=== PATIENT | female | born 1990 | race Caucasian/White ===

== ENCOUNTER 2016-09-27 12:36 | Emergency (ER) | payer OTHER ==
[2016-09-27 14:34] VITALS: BP 116/76
--- NOTE | 2016-09-27 15:37 | UC ---
Throat Pain/Nasal Joel HPI - HPI Summary HPI Summary: Worsening sinus pain and congestion, no fevers, sore throat from post nasal drip - History of Current Complaint Chief Complaint: UCRespiratory Stated Complaint: SINUS COMPLAINT Time Seen by Provider: 09/27/16 15:33 Hx Obtained From: Patient Hx Last Menstrual Period: 09/26/16 ?: No Onset/Duration: Gradual Onset, Lasting Weeks - 2, Still Present Severity: Moderate Pain Intensity: 6 Pain Scale Used: 0-10 Numeric Cough: Nonproductive Associated Signs & Symptoms: Positive: Sinus Discomfort, Nasal Discharge - Allergies/Home Medications Allergies/Adverse Reactions: Allergies Allergy/AdvReac Type Severity Reaction Status Date / Time Hydrocodone [From Vicodin] Allergy Severe Difficulty Verified 09/27/16 14:34 Breathing PMH/Surg Hx/FS Hx/Imm Hx Previously Healthy: Yes Endocrine History Of: Denies: Diabetes Cardiovascular History Of: Denies: Hypertension, Pacemaker/ICD GI/ History Of: Denies: Renal Disease - Surgical History Surgical History: Yes Surgery Procedure, Year, and Place: Appendectomy, ~2010, [facility] - Family History Known Family History: Positive: None - no reports of past medical history in family Negative: Cardiac Disease, Hypertension, Diabetes Family History: family hx of thyroid disorder - Social History Occupation: Employed Full-time Lives: With Family Alcohol Use: Occasionally Substance Use Type: None Smoking Status (MU): Light Every Day Tobacco Smoker Type: Cigarettes Amount Used/How Often: 1/4 PPD Length of Time of Smoking/Using Tobacco: On and Off for 11 Years Have You Smoked in the Last Year: Yes - Immunization History Most Recent Influenza Vaccination: Not the Season Review of Systems Constitutional: Negative Skin: Negative Eyes: Negative ENT: Sore Throat, Nasal Discharge Respiratory: Negative Cardiovascular: Negative Gastrointestinal: Negative Genitourinary: Negative Motor: Negative Neurovascular: Negative Musculoskeletal: Negative Neurological: Negative Psychological: Negative All Other Systems Reviewed And Are Negative: Yes Physical Exam Triage Information Reviewed: Yes Appearance: Well-Appearing, No Pain Distress, Well-Nourished Vital Signs: Initial Vital Signs Temp 96.6 F 09/27/16 14:31 Pulse 83 09/27/16 14:31 Resp 16 09/27/16 14:31 BP 116/76 09/27/16 14:31 Pulse Ox 100 09/27/16 14:31 Vital Signs Reviewed: Yes Eye Exam: Normal Eyes: Positive: Conjunctiva Clear ENT Exam: Normal ENT: Positive: Normal ENT inspection, Hearing grossly normal, Pharynx normal, TMs normal. Negative: Nasal congestion, Nasal drainage, Tonsillar swelling, Tonsillar exudate, Trismus, Muffled/hoarse voice Dental Exam: Normal Neck exam: Normal Neck: Positive: Supple, Nontender, No Lymphadenopathy Respiratory Exam: Normal Respiratory: Positive: Chest non-tender, Lungs clear, Normal breath sounds, No respiratory distress, No accessory muscle use Cardiovascular Exam: Normal Cardiovascular: Positive: RRR, No Murmur, Pulses Normal, Brisk Capillary Refill Musculoskeletal Exam: Normal Musculoskeletal: Positive: Strength Intact, ROM Intact, No Edema Neurological Exam: Normal Neurological: Positive: Alert, Muscle Tone Normal Psychological Exam: Normal Skin Exam: Normal Throat Pain/Nasal Course/Dx - Course Assessment/Plan: Zithromax, flonase, cool mist humidification, increase fluids follow with pcp re-check prn - Differential Dx/Diagnosis Differential Diagnosis/HQI/PQRI: Influenza, Pharyngitis, Sinusitis, URI Provider Diagnoses: Rhinnosinusitis Discharge - Discharge Plan Condition: Stable Disposition: HOME Prescriptions: Azithromycin TAB* [Zithromax TAB (Z-MARSHALL) 250 mg #6 tabs] 2 tab PO .TODAY, THEN 1 DAILY #1 marshall Fluconazole [Diflucan 150 MG (NF)] 150 mg PO DAILY #1 tab Fluticasone NASAL SPRAY 50MCG* [Flonase NASAL SPRAY 50MCG*] 2 spray BOTH NARES DAILY #1 btl Patient Education Materials: Sinusitis (ED), How to Use Nasal Arab (ED) Referrals: Eleonora Barnett MD [Primary Care Provider] - If Needed
== END 2016-09-27 15:45 | disposition home or self-care (01) ==
LOC: UCCORT 12:36
DX: J32.9 Chronic sinusitis, unspecified (principal); F17.210 Nicotine dependence, cigarettes, uncomplicated; Z88.5 Allergy status to narcotic agent
CPT/HCPCS: 99212; G0463

== ENCOUNTER 2016-10-17 10:01 | Emergency (ER) | payer OTHER ==
[2016-10-17 11:05] VITALS: BP 136/86
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
[2016-10-17] MEDS ORDERED: Ketorolac INJ* 60 MG/2 ML VIAL IM ONE (11:27)
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
== END 2016-10-17 12:40 | disposition home or self-care (01) ==
LOC: UCCORT 10:01
DX: M54.2 Cervicalgia (principal); G54.0 Brachial plexus disorders; S14.3XXA Injury of brachial plexus, initial encounter; S70.02XA Contusion of left hip, initial encounter; V48.5XXA Car driver injured in noncollision transport accident in traffic accident, initial encounter; Y93.89 Activity, other specified; Y92.411 Interstate highway as the place of occurrence of the external cause; Z88.5 Allergy status to narcotic agent; F17.210 Nicotine dependence, cigarettes, uncomplicated
CPT/HCPCS: 72020; 72050; 96372; 99213; G0463; J1885

== ENCOUNTER 2016-11-05 13:52 | Emergency (ER) | payer OTHER ==
[2016-11-05 14:12] VITALS: BP 141/78
--- NOTE | 2016-11-05 14:19 | UC ---
Complaint Female HPI - HPI Summary HPI Summary: Dysuria, frequency, bladder pressure starting 2 days ago. Sx worse at night; has been drinking lots of fluids, which helps temporarily, then sx return. Denies fever, vomiting, or back pain. No hx of UTI. - History Of Current Complaint Stated Complaint: URINARY COMPLAINT Time Seen by Provider: 11/05/16 13:55 Hx Obtained From: Patient Hx Last Menstrual Period: 2 weeks ago ?: No Onset/Duration: Gradual Onset, Lasting Days Timing: Constant Severity Initially: Mild Severity Currently: Mild Character: Burning Aggravating Factor(s): Urination Alleviating Factor(s): Nothing Associated Signs And Symptoms: Positive: Negative. Negative: Fever, Back Pain, Vaginal Bleeding/Discharge, Vaginal Discharge, Vomiting(# Of Episodes =) - Allergies/Home Medications Allergies/Adverse Reactions: Allergies Allergy/AdvReac Type Severity Reaction Status Date / Time Hydrocodone [From Vicodin] Allergy Severe Difficulty Verified 11/05/16 14:12 Breathing PMH/Surg Hx/FS Hx/Imm Hx Endocrine History Of: Denies: Diabetes Cardiovascular History Of: Denies: Hypertension, Pacemaker/ICD GI/ History Of: Denies: Renal Disease - Surgical History Surgical History: Yes Surgery Procedure, Year, and Place: Appendectomy, ~2010, [facility] - Family History Known Family History: Positive: None - no reports of past medical history in family Negative: Cardiac Disease, Hypertension, Diabetes Family History: family hx of thyroid disorder - Social History Occupation: Employed Full-time Lives: With Family Alcohol Use: Occasionally Substance Use Type: None Smoking Status (MU): Light Every Day Tobacco Smoker Type: Cigarettes Amount Used/How Often: 1/4 PPD Length of Time of Smoking/Using Tobacco: On and Off for 11 Years Have You Smoked in the Last Year: Yes - Immunization History Most Recent Influenza Vaccination: Not the 2016/2017 Season Review of Systems Constitutional: Negative Skin: Negative Eyes: Negative ENT: Negative Respiratory: Negative Cardiovascular: Negative Gastrointestinal: Negative Genitourinary: Dysuria, Frequency, Urgency Motor: Negative Neurovascular: Negative Musculoskeletal: Negative Neurological: Negative Psychological: Negative All Other Systems Reviewed And Are Negative: Yes Physical Exam Triage Information Reviewed: Yes Appearance: Well-Appearing, No Pain Distress, Well-Nourished Vital Signs: Initial Vital Signs Temp 98.3 F 11/05/16 14:04 Pulse 80 11/05/16 14:04 Resp 18 11/05/16 14:04 BP 141/78 11/05/16 14:04 Vital Signs Reviewed: Yes Eye Exam: Normal Eyes: Positive: Conjunctiva Clear ENT Exam: Normal ENT: Positive: Normal ENT inspection, Hearing grossly normal, Pharynx normal, TMs normal Dental Exam: Normal Neck exam: Normal Neck: Positive: Supple, Nontender, No Lymphadenopathy Respiratory Exam: Normal Respiratory: Positive: Chest non-tender, Lungs clear, Normal breath sounds, No respiratory distress, No accessory muscle use Cardiovascular Exam: Normal Cardiovascular: Positive: RRR, No Murmur Abdomen Description: Positive: Nontender, No Organomegaly, Soft. Negative: CVA Tenderness (R), CVA Tenderness (L) Musculoskeletal Exam: Normal Neurological Exam: Normal Neurological: Positive: Alert Psychological Exam: Normal Skin Exam: Normal Complaint Female Dx - Differential Dx/Diagnosis Provider Diagnoses: UTI. elevated blood pressure due to discomfort Discharge - Discharge Plan Condition: Stable Disposition: HOME Prescriptions: Nitrofurantoin Monohyd Macro [Macrobid] 100 mg PO BID #10 cap Patient Education Materials: Urinary Tract Infection in Women (ED) Referrals: Eleonora Barnett MD [Primary Care Provider] -
== END 2016-11-05 14:31 | disposition home or self-care (01) ==
LOC: UCCORT 13:52
DX: N39.0 Urinary tract infection, site not specified (principal); R03.0 Elevated blood-pressure reading, without diagnosis of hypertension; Z88.5 Allergy status to narcotic agent; F17.210 Nicotine dependence, cigarettes, uncomplicated
CPT/HCPCS: 81003; 87077; 87086; 87186; 99212; G0463

== ENCOUNTER 2017-05-19 19:27 | Emergency (ER) | payer OTHER ==
--- NOTE | 2017-05-19 19:46 | UC ---
Complaint Female HPI - HPI Summary HPI Summary: 26 YEAR OLD [place] PRESENTS WITH COMPLAINS OF URINARY FREQUENCY, URGENCY AND BURNING. - History Of Current Complaint Stated Complaint: URINARY SYMPTOMS Time Seen by Provider: 05/19/17 19:46 Hx Obtained From: Patient Hx Last Menstrual Period: 2 weeks ago Onset/Duration: Sudden Onset Timing: Constant Severity Initially: Moderate Severity Currently: Moderate Pain Scale Used: 0-10 Numeric - 6 - Allergies/Home Medications Allergies/Adverse Reactions: Allergies Allergy/AdvReac Type Severity Reaction Status Date / Time Hydrocodone [From Vicodin] Allergy Severe Difficulty Verified 05/19/17 19:54 Breathing Home Medications: Home Medications Acetaminophen [Acetaminophen Extra Stren] 1,000 mg PO Q6H PRN 05/19/17 [History Confirmed 05/19/17] PMH/Surg Hx/FS Hx/Imm Hx Previously Healthy: Yes - Surgical History Surgical History: Yes Surgery Procedure, Year, and Place: Appendectomy, ~2010, [facility] - Family History Known Family History: Positive: None - no reports of past medical history in family Negative: Cardiac Disease, Hypertension, Diabetes Family History: family hx of thyroid disorder - Social History Alcohol Use: Occasionally Substance Use Type: None Smoking Status (MU): Light Every Day Tobacco Smoker Type: Cigarettes Amount Used/How Often: 1/4 PPD Length of Time of Smoking/Using Tobacco: On and Off for 11 Years Have You Smoked in the Last Year: Yes - Immunization History Most Recent Influenza Vaccination: Not the 2016/2016 Season Review of Systems Constitutional: Negative Skin: Negative Eyes: Negative ENT: Negative Respiratory: Negative Cardiovascular: Negative Gastrointestinal: Negative Genitourinary: Dysuria, Frequency, Urgency Motor: Negative Neurovascular: Negative Musculoskeletal: Negative Neurological: Negative Psychological: Negative All Other Systems Reviewed And Are Negative: Yes Physical Exam Triage Information Reviewed: Yes Vital Signs Reviewed: Yes Eye Exam: Normal ENT Exam: Normal Dental Exam: Normal Neck exam: Normal Neck: Positive: 1 Respiratory Exam: Normal Cardiovascular Exam: Normal Abdominal Exam: Normal Musculoskeletal Exam: Normal Neurological Exam: Normal Psychological Exam: Normal Skin Exam: Normal Complaint Female Dx - Differential Dx/Diagnosis Provider Diagnoses: UTI. URINARY FREQUNECY. URINARY URGENCY Discharge - Discharge Plan Condition: Stable Disposition: HOME Prescriptions: Nitrofurantoin Monohyd Macro [Macrobid] 100 mg PO BID #14 cap Patient Education Materials: Urinary Tract Infection in Women (ED) Referrals: Eleonora Barnett MD [Primary Care Provider] -
[2017-05-19 19:54] VITALS: BP 127/78
--- NOTE | 2017-05-23 07:27 | ED ---
Progress - Progress Note Progress Note: NO CHANGE Course/Dx - Diagnoses Provider Diagnoses: UTI (urinary tract infection)
== END 2017-05-19 20:05 | disposition home or self-care (01) ==
LOC: UCCORT 19:27
DX: N39.0 Urinary tract infection, site not specified (principal); Z32.02 Encounter for pregnancy test, result negative; F17.210 Nicotine dependence, cigarettes, uncomplicated; Z88.6 Allergy status to analgesic agent
CPT/HCPCS: 81003; 84702; 87077; 87086; 87186; 99212; G0463

== ENCOUNTER 2017-05-25 09:58 | Emergency (ER) | payer OTHER ==
[2017-05-25 10:51] VITALS: BP 124/71
--- NOTE | 2017-05-25 11:09 | UC ---
Skin Complaint HPI - HPI Summary HPI Summary: 1. sinus pain and drainage for 10-14 days worsening head ache and frontal pain 2. bee sting yesterday left forearm today erythema has spread almost all the way around her arm down to her forearm, area is painful not itchy and warm to the touch - History of Current Complaint Chief Complaint: UCGeneralIllness Time Seen by Provider: 05/25/17 10:58 Stated Complaint: BEE STING Hx Obtained From: Patient Hx Last Menstrual Period: 2 wks ago ?: No Onset/Duration: Sudden Onset - beesting, Gradual Onset - of sinus pain Timing: Constant Onset Severity: Mild Current Severity: Moderate Pain Intensity: 8 Pain Scale Used: 0-10 Numeric - 8 for both Location: Discrete - as desrcibed Character: Pain, Redness Aggravating Factor(s): Nothing Alleviating Factor(s): Nothing Associated Signs & Symptoms: Positive: Negative Related History: Insect Bite/Sting - Left arm - Allergy/Home Medications Allergies/Adverse Reactions: Allergies Allergy/AdvReac Type Severity Reaction Status Date / Time Hydrocodone [From Vicodin] Allergy Severe Difficulty Verified 05/25/17 10:46 Breathing Home Medications: Home Medications diPHENhydraMINE PO* [Benadryl PO 50 MG CAP*] 50 mg PO TID PRN 05/25/17 [History Confirmed 05/25/17] Review of Systems Constitutional: Negative, Chills - prior to beesting r/t sinus headache, Fatigue Skin: Other - erythema left arm Eyes: Negative ENT: Nasal Discharge, Sinus Congestion, Sinus Pain/Tenderness Respiratory: Negative Cardiovascular: Negative Gastrointestinal: Negative Genitourinary: Negative Motor: Negative Neurovascular: Negative Musculoskeletal: Negative Neurological: Negative Psychological: Negative Is Patient Immunocompromised?: No All Other Systems Reviewed And Are Negative: Yes PMH/Surg Hx/FS Hx/Imm Hx Previously Healthy: Yes - Surgical History Surgical History: Yes Surgery Procedure, Year, and Place: Appendectomy, ~2010, [facility] - Family History Known Family History: Positive: None - no reports of past medical history in family Negative: Cardiac Disease, Hypertension, Diabetes Family History: family hx of thyroid disorder - Social History Occupation: Employed Part-time Lives: With Family Alcohol Use: Rare Substance Use Type: None Smoking Status (MU): Light Every Day Tobacco Smoker Type: Cigarettes Amount Used/How Often: 1/4 PPD Length of Time of Smoking/Using Tobacco: On and Off for 11 Years Have You Smoked in the Last Year: Yes Cessation Counseling: Patient Advised to Stop - Immunization History Most Recent Influenza Vaccination: Not the Season Physical Exam Triage Information Reviewed: Yes Appearance: Well-Appearing, No Pain Distress, Well-Nourished Vital Signs: Initial Vital Signs Temp 98.1 F 05/25/17 10:48 Pulse 93 05/25/17 10:48 Resp 16 05/25/17 10:48 BP 124/71 05/25/17 10:48 Pulse Ox 100 05/25/17 10:48 Vital Signs Reviewed: Yes Eye Exam: Normal Eyes: Positive: Conjunctiva Clear ENT Exam: Normal ENT: Positive: Normal ENT inspection, Hearing grossly normal, Pharynx normal. Negative: Nasal congestion, Nasal drainage Dental Exam: Normal Neck exam: Normal Neck: Positive: Supple, Nontender, No Lymphadenopathy Respiratory Exam: Normal Respiratory: Positive: Chest non-tender, Lungs clear, Normal breath sounds, No respiratory distress, No accessory muscle use Cardiovascular Exam: Normal Cardiovascular: Positive: RRR, Pulses Normal, Brisk Capillary Refill Musculoskeletal Exam: Normal Musculoskeletal: Positive: Strength Intact, ROM Intact, No Edema Neurological Exam: Normal Neurological: Positive: Alert, Muscle Tone Normal Psychological Exam: Normal Skin: Positive: Other - erythema left arm as described Course/Dx - Course Course Of Treatment: keflex, benadryl, flonase, ibuprofen follow with pcp prn - Diagnoses Provider Diagnoses: Acute rhinosinusitis, bee sting left arm, resolved UTI Discharge - Discharge Plan Condition: Stable Disposition: HOME Prescriptions: Cephalexin CAP* [Keflex 500 CAP*] 500 mg PO TID #21 cap Fluconazole 150 MG (NF) [Diflucan 150 mg (NF)] 150 mg PO ONCE #2 tab Fluticasone NASAL SPRAY 50MCG* [Flonase NASAL SPRAY 50MCG*] 2 spray BOTH NARES DAILY #1 btl Patient Education Materials: Insect Bite or Sting (ED), Rhinosinusitis (ED) Referrals: Eleonora Barnett MD [Primary Care Provider] - If Needed
== END 2017-05-25 11:16 | disposition home or self-care (01) ==
LOC: UCCORT 09:58
DX: J32.9 Chronic sinusitis, unspecified (principal); T63.441A Toxic effect of venom of bees, accidental (unintentional), initial encounter; X58.XXXA Exposure to other specified factors, initial encounter; Z88.6 Allergy status to analgesic agent
CPT/HCPCS: 99212; G0463

== ENCOUNTER 2017-10-10 18:03 | Emergency (ER) | payer BC, OTHER ==
[2017-10-10 18:42] VITALS: BP 126/72
--- NOTE | 2017-10-10 19:12 | UC ---
Knee Pain HPI - HPI Summary HPI Summary: 26 yo female with left knee pain x days no known trauma knee wayne now has pain from left hip to foot - History of Current Complaint Chief Complaint: UCLowerExtremity Stated Complaint: LEFT KNEE COMPLAINT Time Seen by Provider: 10/10/17 18:47 Hx Obtained From: Patient Hx Last Menstrual Period: 09/23/17 Onset/Duration: Gradual Onset, Lasting Days Severity Initially: Moderate Severity Currently: Moderate Pain Intensity: 4 Pain Scale Used: 0-10 Numeric Character: Aching, Throbbing Aggravating Factor(s): Movement, Weight Bearing Able to Bear Weight: Yes - Allergies/Home Medications Allergies/Adverse Reactions: Allergies Allergy/AdvReac Type Severity Reaction Status Date / Time MS Hydrocodone [From Vicodin] Allergy Severe Difficulty Verified 10/10/17 18:42 Breathing PMH/Surg Hx/FS Hx/Imm Hx Previously Healthy: Yes - Surgical History Surgical History: Yes Surgery Procedure, Year, and Place: Appendectomy, ~2010, [facility] - Family History Known Family History: Positive: None - no reports of past medical history in family Negative: Cardiac Disease, Hypertension, Diabetes Family History: family hx of thyroid disorder - Social History Alcohol Use: Rare Substance Use Type: None Smoking Status (MU): Light Every Day Tobacco Smoker Type: Cigarettes Amount Used/How Often: 1/4 PPD Length of Time of Smoking/Using Tobacco: On and Off for 11 Years Have You Smoked in the Last Year: Yes - Immunization History Most Recent Influenza Vaccination: Not the 2015/2016 Season Review of Systems Constitutional: Negative Skin: Negative Eyes: Negative ENT: Negative Respiratory: Negative Cardiovascular: Negative Gastrointestinal: Negative Genitourinary: Negative Motor: Negative Neurovascular: Negative Musculoskeletal: Arthralgia Neurological: Negative Psychological: Negative Is Patient Immunocompromised?: No All Other Systems Reviewed And Are Negative: Yes Physical Exam Triage Information Reviewed: Yes Appearance: Well-Appearing, No Pain Distress, Well-Nourished Vital Signs: Initial Vital Signs Temp 98.6 F 10/10/17 18:36 Pulse 78 10/10/17 18:36 Resp 18 10/10/17 18:36 BP 126/72 10/10/17 18:36 Pulse Ox 100 10/10/17 18:36 Vital Signs Reviewed: Yes Eyes: Positive: Conjunctiva Clear ENT: Positive: Hearing grossly normal. Negative: Nasal congestion, Nasal drainage, Trismus, Muffled voice, Hoarse voice Dental Exam: Normal Neck: Positive: Supple, Nontender, No Lymphadenopathy Respiratory: Positive: No respiratory distress, No accessory muscle use Cardiovascular: Positive: RRR Musculoskeletal: Positive: ROM Intact, No Edema, Other: - antalgic gait Neurological: Positive: Alert Psychological Exam: Normal Skin Exam: Normal Diagnostics - Radiology No standard instances Xray Interpretation: No Acute Changes Radiology Interpretation Completed By: Radiologist Knee Pain Course/Dx - Differential Dx/Diagnosis Provider Diagnoses: left knee pain of uncertain cause. ? overuse injury vs internal derrangement vs other Discharge - Discharge Plan Condition: Stable Disposition: HOME Patient Education Materials: Knee Pain (ED) Referrals: Alessio Orona MD [Medical Doctor] - As Soon As Possible Additional Instructions: ice rest elevate advil or aleve knee immobilizer when wt bearing
--- NOTE | 2017-10-10 19:45 | RAD ---
INDICATION: Knee pain COMPARISON: None TECHNIQUE: AP, lateral, tunnel, and sunrise views were obtained. FINDINGS: The bony structures, joint spaces, and soft tissues are normal for age. IMPRESSION: NEGATIVE EXAMINATION.
== END 2017-10-10 20:15 | disposition home or self-care (01) ==
LOC: UCCORT 18:03
DX: M25.562 Pain in left knee (principal); F17.210 Nicotine dependence, cigarettes, uncomplicated
CPT/HCPCS: 99212; G0463

== ENCOUNTER 2018-01-28 09:07 | Day surgery (SDC) | payer BC ==
[~2018-01-28 09:07] MED LIST: Buffered Lidocaine 0.9% SYRIN* 5 ML/SYR SYRINGE INTRADERM ONE; Dexamethasone IV* 4 MG/ML 1 ML (4 MG) ONE; DiMENhydriNATE IV* 50 MG/ML VIAL ONE; Famotidine IV* 10 MG/ML 2 ML (20 mg) IV ONE; Ketorolac INJ* 30 MG/ML 1 ML VIAL ONE; Lidocaine 2% PF * 5 ML VIAL ONE; Midazolam* 1 MG/ML 5 ML VIAL (5 MG) ONE; Propofol* 10 MG/ML 20 ML BTL IV PUSH ONE; fentaNYL* 50 MCG/ML 2 ML VIAL (100 MCG VIAL) ONE
[2018-01-28] MEDS ORDERED: Famotidine IV* 10 MG/ML 2 ML (20 mg) ONE (09:21)
[2018-01-28] MEDS ORDERED: Buffered Lidocaine 0.9% SYRIN* 5 ML/SYR SYRINGE ONE (09:22)
[2018-01-28] MEDS ORDERED: ceFAZolin 2 GM PREMIX (*) 2 GM/50 ML BAG IVPB ONE (09:22)
[2018-01-28] MEDS ORDERED: fentaNYL* 50 MCG/ML 2 ML VIAL (100 MCG VIAL) ONE (09:45)
[2018-01-28] MEDS ORDERED: Bupivacaine 0.25% SDV* 30 ML ONE (11:10)
[2018-01-28] MEDS ORDERED: Ketorolac INJ* 30 MG/ML 1 ML VIAL ONE (11:10)
[2018-01-28] MEDS ORDERED: Naloxone* 0.4 MG/ML 1 ML VIAL IV PRN (12:54)
[2018-01-28] MEDS ORDERED: Ondansetron INJ* 2 MG/ML VIAL IV PRN (12:54)
[2018-01-28] MEDS ORDERED: Acetaminophen TAB* 325 MG PO PRN (12:54)
[2018-01-28 13:51] VITALS: BP 107/67
[2018-01-28] MEDS ORDERED: fentaNYL* 50 MCG/ML 5 ML VIAL (250 MCG VIAL) ONE (13:59)
[2018-01-28] MEDS: fentaNYL* 50 MCG/ML 2 ML VIAL (100 MCG VIAL) IV PRN ×3 (14:02→14:53)
--- NOTE | 2018-01-28 14:16 | RAD ---
INDICATION: Left hip arthroscopic labral repair, left hip pain COMPARISONS: MRI dated October 27, 2017 TECHNIQUE: Fluoroscopy was provided for a surgical procedure. Total fluoroscopy time is: 36.4 seconds FINDINGS: Spot images demonstrate a needle overlying the joint space of the left hip. IMPRESSION: FLUOROSCOPY WAS PROVIDED FOR A SURGICAL PROCEDURE CPT II Codes: G9500
[2018-01-28] MEDS ORDERED: oxyCODONE/Acetamin 5/325 MG* TAB ONE (14:56)
[2018-01-28] MEDS ORDERED: oxyCODONE/Acetamin 5/325 MG* TAB PO ONE (14:59)
--- NOTE | 2018-01-29 13:04 | OP ---
CC: PCP, Eleonora Barnett MD * DATE OF OPERATION: 01/28/18 - [facility] DATE OF : 86. SURGEON: Caroline Gutierrez MD. FISH RECEIVER: JARED Layton. An editorial assistant was needed for the entirety of the case to help with positioning, retraction, and was utilized throughout all portions of the case. ANESTHESIOLOGIST: Dr. Bazzi. ANESTHESIA: General. PRE-OP DIAGNOSIS: Left hip labral tear with cam impingement. POST-OP DIAGNOSIS: Left hip labral tear with cam impingement. OPERATIVE PROCEDURE: Right hip arthroscopy with labral repair and cam osteoplasty. COMPLICATIONS: None. ESTIMATED BLOOD LOSS: Minimal. TRACTION TIME: 57 minutes. IMPLANTS USED: Two Q-FIX 1.8 mm anchors. INDICATIONS: Danyelle Mayfield is a 27-year-old female, who had an injury that may or may not have occurred over 10 years ago. She had catching and locking pain. She has failed conservative management including physical therapy and antiinflammatories. She responded well to an injection. The risks and benefits of surgery were discussed at length to include, but not limited to bleeding, infection, damage to nerves, vessels, surrounding structures, wound nonhealing, persistent pain, need for further surgery, scarring, stiffness, incomplete relief of symptoms, the risk of anesthesia, persistent pain, traction injury as well as risk of DVT, and fracture. She has elected to proceed. FINDINGS: The traction provided good access to the hip without evidence of underlying hyperlaxity. Arthroscopic exam showed labral tear from the 10 o' clock to the 2 o'clock position with a wave sign. The tissue quality was okay and was amenable to repair. There were no large cartilage changes in the femoral head or neck. The femoral head had grade 0 to 1 changes. The acetabulum had grade 0 to 1 changes and there was a wave sign with delimination. The synovitis was abundant, it was released, and there was some mild capsular irritation and thickening. DESCRIPTION OF PROCEDURE: The patient was greeted in the preoperative area by the attending surgeon. Correct extremity was marked and the consent was confirmed. The patient was brought back to the operating suite where she was placed in supine position on operating table. She then underwent general anesthesia and endotracheal intubation after which she was placed in well- padded boots. Her legs were then placed in Weber and Nephew hip distraction system with well-padded perineal post. Gross traction was then applied to balance pelvis on the nonoperative leg. The operative extremity was then placed in a dynamic leg jones with neutral adduction, slight flexion, gentle internal rotation to bring the femoral neck parallel to the floor to help facilitate atraumatic access. The left arm was then secured over the patient. The left hip was then prepped and draped in the usual sterile fashion beginning with chlorhexidine soap, scrub, and alcohol wipe. Then, a small miniature surgical pause was then indicating site, side, procedure , and under sterile condition. An 18-gauge spinal needle was used to access the joint and break the acetabular seal. Once this was done, fine traction was applied into the joint and was distracted to about 1.5 cm. This was visualized and confirmed by the large C-arm fluoroscopy. The traction was then released and hip was then prepped and draped with a final prep with ChloraPrep. After appropriate surgical pause indicating site, side, procedure, administration of antibiotics, traction was brought back up again to about 1.5 cm of traction. The anterior peritrochanteric portal was then accessed using a long spinal needle. This was confirmed fluoroscopically. The cannula was then placed into the joint atraumatically. The second portal, mid-anterior portal was then made in a similar fashion, and spinal needle for localization. The trocar was then advanced. A 70- degree scope was used to identify and visualize the labrum including femoral head, which had no chondral changes. There was an anterior labral tear from the 10 o'clock to 2 o'clock position with a wave sign. Neither portal was impinging or transecting the labrum. The capsulotomy was then made using the big lagoon blade connecting both portals. The shaver was then used to debride back the tissue and the electrocautery was used to maintain hemostasis. The labrum again was torn from 10 o'clock to 2 o'clock position. It was good enough to be repaired. There was a small crossover sign and this required to be removed prior to labral repair. The labrum was removed using the big lagoon blade with care to prevent any iatrogenic damage to this. Rim trimming was done with a 5.5 oval garth to remove crossover sign. This was confirmed fluoroscopically as well as arthroscopically. At this point, the decision was made to repair the labrum and an anchor was placed laterally with excellent purchase. The suture was then passed through the labrum in a simple fashion. This was tied down and helped restore the labrum. The decision was made to put a second one more anterolaterally. This was done again using the 1.8 mm Q-FIX, as this placed with excellent purchase and passed the labrum in a simple configuration. This helped restore the labrum. Any excess chondral flap was debrided back using the shaver. After the intra-articular work was complete, attention was directed to the cam. The traction was released for a total time 57 minutes. This was confirmed arthroscopically and fluoroscopically. With the leg in extension and internal rotation, the osteoplasty began at the cam lesion. Bone quality was good. It was a moderate size cam lesion. Preoperative templating was used as a guide for femoral neck osteoplasty, and this was carried out using a 5.5 mm round garth. The resection was carried out from superior to inferior and lateral to medial. This was carefully monitored using the C-arm to ensure elimination of femoral side impingement. The hip was placed in the flexion to remove the very inferior portions of the cam lesion as well, again in neutral, internal and external rotation. The femoral head and neck angle were then normalized. Care was taken to prevent iatrogenic injury to the vessels. Dynamic testing was done under direct visualization. The C-arm was used to ensure areas of bony impingement was removed. The hip was taken through range of motion. After this was done, gentle flexion, extension, internal and external rotation as well as neutral rotation. This was confirmed that the cam had been eliminated and meticulous hemostasis was obtained. The spinal needle was then inserted under arthroscopic assistance and 30 mg of Toradol as well as injectable saline were injected intra -articularly. The wounds were copiously irrigated with sterile saline, and closed in a layered fashion with 2-0 Vicryl and 3-0 nylon. The portals were injected with 0.25% Marcaine plain for postoperative pain control. Thigh head JESSICA stockings, sterile dressings, and Cryo/Cuff were applied. She was then awoken from anesthesia, transferred to PACU in stable condition. POSTOPERATIVE PLAN: She will be discharged home the same day. She will start physical therapy on postop day #1. She will be discharged on Percocet and Naprosyn. She will begin gentle range of motion. She will be 50% weightbearing for the first two weeks with no flexion of the hip past 90 degrees for the first two weeks. I will see her back in 14 days with x-rays of the hip including a Rodriguez lateral at 45 degrees. [id number]/[facility] #: [id number] [facility]
== END 2018-01-28 15:32 | disposition home or self-care (01) ==
LOC: OR 09:07
PROVIDERS: ATTEND Orthopaedic Surgery
DX: M24.852 Other specific joint derangements of left hip, not elsewhere classified (principal); Z72.0 Tobacco use; J30.89 Other allergic rhinitis
CPT/HCPCS: 81025; A9270-GY; J0690; J1100; J1240; J1885; J2250; J2704; J3010

== ENCOUNTER 2018-03-05 13:08 | Emergency (ER) | payer BC ==
--- OUTSIDE RECORDS SUMMARY | 2018-03-05 13:44 | XMS REPORT ---
:1990 External Reference #:[id number] Author Organization [employer] Address [address] [place] [address] Phone [phone] Care Team Providers Name Role Phone Eleonora Barnett MD Primary Care Physician Unavailable Payers Type Date Identification Numbers Payment Provider Subscriber Commercial Policy Number: [id number] BS Facets Danyelle Mayfield PayID: [id number] [address] [place] [address] Problems Date Description Provider Status Onset: 11/18/2017 Oth specific joint derangements of left Caroline Gutierrez MD Active hip, NEC Onset: 11/18/2017 Dog bite Caroline Gutierrez MD Active Family History Date Family Member(s) Problem(s) Comments General Diabetes General Hypertension General Rheumatoid Arthritis Father Unknown Mother Alive And Well Social History Type Date Description Comments Marital Status Lives With Lives With Children 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 Cigarette Use currently smokes 1/2 Pack Daily ETOH Use Currently consumes alcohol Smoking Light tobacco smoker (10 or fewer cigarettes/day) Recreational Drug Use Denies Drug Use Daily Caffeine Consumes on average 2 cups of regular coffee per day Daily Caffeine Consumes on average 1 soda per day Exercise Type/Frequency Exercises regularly Allergies, Adverse Reactions, Alerts Date Description Reaction Status Severity Comments 10/14/2017 NKDA active Medications Medication Date Status Form Strength Qnty SIG Indications Ordering Provider Naproxen Active Tablets 500mg 60tabs 1 by Caroline Gutierrez MD twice a day x 30 days post op. Oxycodone-Ernesto Active Tablets 5-325mg 28tabs 1 tabs Zaneb taminophen 018 by mouth MD Matt every 6 hours as needed for pain Diclofenac Active Tablets DR 75mg 60tabs take 1 M24.852 Zaneb Sodium 018 tablet MD Matt twice a day with food Tramadol HCL Active Tablets 50mg 14tabs 1 tablet Juneneb 018 by mouth MD Matt every 12 hours as needed pain Tri-Linyah Active Tablets 0.18/0.215/ 1 tab by Zarrini, 000 0.25 mg-35 mouth Heber, mcg daily MD Ibu-200 Active Tablets 200mg 2 tab as Unknown 000 needed. Amoxicillin/C Hx Tablets 875-125mg 10tabs Take 1 W54.0xxA Zaneb lavulanate 018 - tablet MD Matt Potassium by mouth 018 twice daily for 5 days. Vital Signs Date Vital Result Comment 02/10/2018 Height 64 inches 5'4" Weight 160.00 lb BP Systolic 116 mmHg BP Diastolic 68 mmHg Body Temperature 97.5 F Pain Level 5 BMI (Body Mass Index) 27.5 kg/m2 01/08/2018 Height 65 inches 5'5" Weight 163.00 lb BP Systolic 114 mmHg BP Diastolic 76 mmHg Respiratory Rate 18 /min Pain Level 6 BMI (Body Mass Index) 27.1 kg/m2 12/18/2017 Height 65 inches 5'5" Weight 163.00 lb Heart Rate 80 /min BP Systolic 102 mmHg BP Diastolic 60 mmHg Respiratory Rate 16 /min Body Temperature 98.1 F Pain Level 5 BMI (Body Mass Index) 27.1 kg/m2 11/27/2017 Height 65 inches 5'5" Weight 163.00 lb BP Systolic 122 mmHg BP Diastolic 62 mmHg Respiratory Rate 18 /min Pain Level 7 BMI (Body Mass Index) 27.1 kg/m2 11/18/2017 Height 65 inches 5'5" Weight 163.00 lb Heart Rate 72 /min BP Systolic Sitting 116 mmHg BP Diastolic Sitting 80 mmHg Respiratory Rate 16 /min Pain Level 4 BMI (Body Mass Index) 27.1 kg/m2 10/29/2017 Height 65 inches 5'5" Weight 163.00 lb Heart Rate 84 /min BP Systolic Sitting 128 mmHg BP Diastolic Sitting 84 mmHg Respiratory Rate 16 /min Pain Level 6 BMI (Body Mass Index) 27.1 kg/m2 10/14/2017 Height 65 inches Weight 163.25 lb Heart Rate 72 /min BP Systolic Sitting 108 mmHg BP Diastolic Sitting 62 mmHg Respiratory Rate 12 /min Pain Level 4 BMI (Body Mass Index) 27.2 kg/m2 Results Description No Information Procedures Date CPT Code Description Status 01/28/2018 91984 Arthroscopy,Hip,Labral Repair Completed 01/28/2018 34901 Arthroscopy,Hip,Labral Repair Completed 01/28/2018 91089 Arthroscopy,Hip,W/Femoroplasty,Treatment Of Cam Lesion Completed 01/28/2018 89899 Arthroscopy,Hip,W/Femoroplasty,Treatment Of Cam Lesion Completed 10/14/2017 04622 Radiologic Exam Hip Unilateral With Pelvis 2-3 Views Completed Encounters Type Date Location Provider CPT E/M Dx Office Visit 01/08/2018 10:15a [facility] [place] [address] M24.852 [facility] F17.210 Office Visit 12/18/2017 10:30a [facility] [place] [address] M24.852 [facility] M25.852 Office Visit 11/27/2017 2:00p [facility] [place] [address] M24.852 [facility] Office Visit 11/18/2017 9:30a [facility] [place] [address] M24.852 [facility] W54.0xxA M25.852 Office Visit 10/29/2017 8:45a [facility] [place] [address] M25.552 [facility] S73.192A Office Visit 10/14/2017 2:30p [facility] [place] [address] M25.552 [facility] M22.2x2 Plan of Care Future Appointment(s):03/24/2018 11:15 am - Caroline Gutierrez MD at [facility]02/10/2018 - Caroline Gutierrez, MDM24.852 Oth specific joint derangements of left hip, NECFollow up:Follow up: 4-6 weeks
[2018-03-05 14:01] VITALS: BP 117/67
--- NOTE | 2018-03-05 14:15 | UC ---
Dental HPI - HPI Summary HPI Summary: 27 F with dental pain x 2-3 days. has cracked tooth and now with pain and it causes ZABMRANO. Has oxy for recent hip pain but ran out of NSAIDs and also the tooth with pain with eating,. no fever. trying to get in to a dentist - History of Current Complaint Chief Complaint: UCDentalProblem Stated Complaint: DENTAL COMPLAINT Time Seen by Provider: 03/05/18 13:47 Hx Obtained From: Patient Hx Last Menstrual Period: 02/11/18 Onset/Duration: Gradual Onset Pain Intensity: 7 - Allergies/Home Medications Allergies/Adverse Reactions: Allergies Allergy/AdvReac Type Severity Reaction Status Date / Time hydrocodone [From Vicodin] Allergy Difficulty Verified 03/05/18 13:50 Breathing Home Medications: Home Medications Naproxen Sodium [Aleve] 440 mg PO Q6H 03/05/18 [History Confirmed 03/05/18] Naproxen [Naproxen 500 mg tab] 500 mg PO BID PRN 03/05/18 [History Confirmed ] Oxycodone HCl/Acetaminophen [Percocet] 1 tab PO Q6H PRN 03/05/18 [History Confirmed 03/05/18] PMH/Surg Hx/FS Hx/Imm Hx Previously Healthy: Yes - Surgical History Surgical History: Yes Surgery Procedure, Year, and Place: Appendectomy, ~2010, S. LEFT HIP SURGERY , 01/28/18 - Family History Known Family History: Positive: None - no reports of past medical history in family Negative: Cardiac Disease, Hypertension, Diabetes Family History: family hx of thyroid disorder - Social History Occupation: Employed Part-time Lives: With Family Alcohol Use: Rare Substance Use Type: None Smoking Status (MU): Light Every Day Tobacco Smoker Type: Cigarettes Amount Used/How Often: 1/2 PPD X 10 YEARS Length of Time of Smoking/Using Tobacco: On and Off for 11 Years Have You Smoked in the Last Year: Yes - Immunization History Most Recent Influenza Vaccination: Not the 2016/2016 Season Review of Systems ENT: Dental Pain Is Patient Immunocompromised?: No All Other Systems Reviewed And Are Negative: Yes Physical Exam Triage Information Reviewed: Yes Appearance: Well-Appearing, No Pain Distress, Well-Nourished Vital Signs: Initial Vital Signs Temp 98.3 F 03/05/18 13:55 Pulse 79 03/05/18 13:55 Resp 16 07/19/18 13:55 BP 117/67 03/05/18 13:55 Pulse Ox 100 03/05/18 13:55 Vital Signs Reviewed: Yes Eyes: Positive: Conjunctiva Clear ENT: Positive: Hearing grossly normal Dental: Positive: Dental Fracture @ Neck exam: Normal Respiratory Exam: Normal Cardiovascular Exam: Normal Musculoskeletal Exam: Normal Musculoskeletal: Positive: No Edema Neurological Exam: Normal Psychological Exam: Normal Skin Exam: Normal Dental Complaint Course/Dx - Course Course Of Treatment: start NSAIDs with meal for short period of time. start amox if swelling worsens or pain worsens. get dentist zaida - Differential Dx/Diagnosis Differential Diagnosis/Dx: Dental Abscess, Dental Caries, Fractured Tooth Provider Diagnoses: Fractured tooth. Dental abscess Discharge - Sign-Out/Discharge Documenting (check all that apply): Patient Departure - Discharge Plan Condition: Good Disposition: HOME Prescriptions: Amoxicillin PO (*) [Amoxicillin 500 MG CAP*] 500 mg PO TID 10 Days #30 cap Naproxen [Naproxen 500 mg tab] 500 mg PO BID #30 tablet Patient Education Materials: Dental Abscess (ED) Referrals: Eleonora Barnett MD [Primary Care Provider] - 1 Day (also please follow up with a dentist zaida ) - Billing Disposition and Condition Condition: GOOD Disposition: Home Images Dental: 1 - cracked tooth. some mild gum swelling . tenderness
== END 2018-03-05 14:28 | disposition home or self-care (01) ==
LOC: UCCORT 13:08
DX: S02.5XXA Fracture of tooth (traumatic), initial encounter for closed fracture (principal); X58.XXXA Exposure to other specified factors, initial encounter; Y93.9 Activity, unspecified; Y92.9 Unspecified place or not applicable; K04.7 Periapical abscess without sinus; Z88.5 Allergy status to narcotic agent; F17.210 Nicotine dependence, cigarettes, uncomplicated
CPT/HCPCS: 99212; G0463

== ENCOUNTER 2018-05-11 09:24 | Emergency (ER) | payer BC ==
--- OUTSIDE RECORDS SUMMARY | 2018-05-11 09:50 | XMS REPORT ---
:1990 External Reference #:[id number] Author Organization [employer] Address [address] [place] [address] Phone [phone] Care Team Providers Name Role Phone Eleonora Barnett MD Primary Care Physician Unavailable Payers Type Date Identification Numbers Payment Provider Subscriber Commercial Policy Number: [id number] BS Facets Danyelle Mayfield PayID: [id number] [address] [address] [place] [address] Problems Date Description Provider Status Onset: 11/18/2017 Dog bite Caroline Gutierrez MD Active Onset: 11/18/2017 Oth specific joint derangements of left Caroline Gutierrez MD Active hip, NEC Onset: 04/16/2018 Trochanteric bursitis Caroline Gutierrez MD Active Family History Date Family Member(s) Problem(s) Comments General Diabetes General Hypertension General Rheumatoid Arthritis Father Unknown Mother Alive And Well Social History Type Date Description Comments Marital Status Lives With Lives With Children 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 Oxycodone-Ernesto Active Tablets 5-325mg 10tabs 1 tabs Caroline taminophen 018 by mouth MD Matt at night as needed for pain Tri-Linyah 0 Active Tablets 0.18/0.215/ 1 tab by Junerrini, 000 0.25 mg-35 mouth Heber, mcg daily Ibu-200 0 Active Tablets 200mg 2 tab as Unknown 000 needed. Diclofenac Hx Tablets DR 75mg 60tabs take 1 M24.852 Zaneb Sodium 018 - tablet MD Matt twice a 018 day with food Tramadol HCL Hx Tablets 50mg 14tabs 1 tablet Lucb 018 - by mouth MD Matt every 12 018 hours as needed pain Amoxicillin/C Hx Tablets 875-125mg 10tabs Take 1 W54.0xxA Zaarchie lavulanate 018 - tablet MD Matt Potassium by mouth 018 twice daily for 5 days. Vital Signs Date Vital Result Comment 04/16/2018 Height 64 inches 5'4" Heart Rate 80 /min BP Systolic Sitting 102 mmHg BP Diastolic Sitting 66 mmHg Respiratory Rate 16 /min Body Temperature 97.5 F Pain Level 6 03/24/2018 Height 64 inches 5'4" Weight 160.00 lb Heart Rate 70 /min BP Systolic Sitting 130 mmHg BP Diastolic Sitting 90 mmHg Respiratory Rate 16 /min Pain Level 6 BMI (Body Mass Index) 27.5 kg/m2 02/10/2018 Height 64 inches 5'4" Weight 160.00 [...] Procedures Date CPT Code Description Status 01/28/2018 91466 Arthroscopy,Hip,Labral Repair Completed 01/28/2018 56032 Arthroscopy,Hip,Labral Repair Completed 01/28/2018 38176 Arthroscopy,Hip,W/Femoroplasty,Treatment Of Cam Lesion Completed 01/28/2018 96007 Arthroscopy,Hip,W/Femoroplasty,Treatment Of Cam Lesion Completed 10/14/2017 15991 Radiologic Exam Hip Unilateral With Pelvis 2-3 Views Completed Encounters Type Date Location Provider CPT E/M Dx Office Visit 01/08/2018 10:15a [facility] [place] [address] M24.852 [facility] F17.210 Office Visit 12/18/2017 10:30a [facility] [place] [address] M24.852 [facility] M25.852 Office Visit 11/27/2017 2:00p [facility] [place] [address] M24.852 [facility] Office Visit 11/18/2017 9:30a [facility] [place] [address] M24.852 [facility] W54.0xxA M25.852 Office Visit 10/29/2017 8:45a [facility] [place] [address] M25.552 [employer] [facility] [employer] S73.192A Office Visit 10/14/2017 2:30p [facility] [place] [address] M25.552 [employer] [facility] [employer] M22.2x2 Plan of Care 04/16/2018 - Caroline Gutierrez, MDM24.852 Oth specific joint derangements of left hip , NECNew Xrays:MRI Hip Left ArthrogramReferral:Sajan Gutiérrez MD, [facility] TRNGFollow up:Follow up:M70.62 Trochanteric bursitis, left hipFollow up:please look up trochanteric bursitis exercises
[2018-05-11 09:55] VITALS: BP 131/81
--- NOTE | 2018-05-11 10:45 | UC ---
Hip/Pelvis Pain - HPI Summary HPI Summary: 27-year-old female with history of arthroscopic left-sided hip surgery in January of this year approximately [address] Gutierrez, left hip bursitis with impingement, presents with 3 days of left-sided hip pain radiating down to the left leg associated with numbness of the toes of the left foot and swelling and tenderness along the left hip. Denies any fever, nausea, or vomiting. - History Of Current Complaint Chief Complaint: UCGeneralIllness Stated Complaint: LEFT LEG COMPLAINT Hx Last Menstrual Period: 05/06/18 Pain Intensity: 7 - Allergies/Home Medications Allergies/Adverse Reactions: Allergies Allergy/AdvReac Type Severity Reaction Status Date / Time hydrocodone [From Vicodin] Allergy Difficulty Verified 05/11/18 09:56 Breathing Home Medications: Home Medications Diclofenac Sodium 75 mg PO BID 05/11/18 [History Confirmed 05/11/18] PMH/Surg Hx/FS Hx/Imm Hx - Additional Past Medical History Additional PMH: No past medical history Previously Healthy: Yes - Surgical History Surgical History: Yes Surgery Procedure, Year, and Place: Appendectomy, ~2010, [facility]. LEFT HIP SURGERY , 01/28/18 - ARTHROSCOPIC LABRAL REPAIR & IMPINGEMENT- - Family History Known Family History: Positive: None - no reports of past medical history in family Negative: Cardiac Disease, Hypertension, Diabetes Family History: family hx of thyroid disorder - Social History Alcohol Use: Rare Substance Use Type: None Smoking Status (MU): Light Every Day Tobacco Smoker Type: Cigarettes Amount Used/How Often: 1/2 PPD X 10 YEARS Length of Time of Smoking/Using Tobacco: On and Off for 11 Years Have You Smoked in the Last Year: Yes - Immunization History Most Recent Influenza Vaccination: Not the 2016/2016 Season Review of Systems Constitutional: Negative Skin: Other - Swelling around the left hip Eyes: Negative ENT: Negative Respiratory: Negative Cardiovascular: Negative Gastrointestinal: Negative Motor: Negative Neurovascular: Other - Numbness along the dorsum of left toes Musculoskeletal: Other: - Left-sided hip pain radiating downward Neurological: Negative Psychological: Negative All Other Systems Reviewed And Are Negative: Yes Physical Exam - Summary Physical Exam Summary: Gen: alert, in no acute distress HEENT: EOMI, normocephalic, atruamatic Neck: supple, no masses CV: Normal s1 s2, no murmurs. Mildly decreased palpable pulses on the left in the pedal and posterior tibial areas Resp: normal breath sounds b/l GI: no tenderness, no masses Musculoskeletal: Pain with passive and active range of motion at the left hip, minimally reduced range of motion secondary to pain. Neuro: no obvious focal neurological deficits. Mild numbness to light touch along the dorsum of the toes on the left. Skin: no rash, mild soft tissue swelling and redness along the lateral left hip Lymph: no lymphadenopathy Psych: appropriate affect, oriented Triage Information Reviewed: Yes Vital Signs: Initial Vital Signs Temp 36.6 C 05/11/18 09:50 Pulse 93 05/11/18 09:50 Resp 18 05/11/18 09:50 BP 131/81 05/11/18 09:50 Pulse Ox 100 05/11/18 09:50 Hip Injury Course/Dx - Course Course Of Treatment: Based on history and physical examination, patient had concerning findings of the left foot, I spoke with Dr. Castrejon at [facility] ED, patient had her orthopedic procedures done at [facility]. I instructed the patient to go to the emergency department for further studies for further eval of vasculature of left lower extremity. Agrees to and understands discharge instructions. - Differential Dx/Diagnosis Provider Diagnoses: left hip pain Discharge - Sign-Out/Discharge Documenting (check all that apply): Patient Departure All imaging exams completed and their final reports reviewed: No Studies - Discharge Plan Condition: Stable Disposition: HOME-RECOMMEND TO ED Patient Education Materials: Hip Pain (ED) Referrals: Domi Ly PA [Primary Care Provider] - Additional Instructions: PLEASE GO STRAIGHT TO EMERGENCY DEPARTMENT AT [facility] IN [place] - Billing Disposition and Condition Condition: STABLE Disposition: Home-Recommend to ED
== END 2018-05-11 10:52 | disposition home health service (06) ==
LOC: UCCORT 09:24
DX: M25.552 Pain in left hip (principal); Z98.890 Other specified postprocedural states; Z88.6 Allergy status to analgesic agent; F17.210 Nicotine dependence, cigarettes, uncomplicated
CPT/HCPCS: 99212; G0463

== ENCOUNTER 2018-05-11 11:48 | Emergency (ER) | payer BC ==
--- NOTE | 2018-05-11 12:48 | ED ---
Lower Extremity - HPI Summary HPI Summary: Patient is a 27-year-old female who presents emergency department for increased left hip pain as well as tingling in her left foot. Patient had a arthroscopic febrile repaired by Dr. Gutierrez, 01/29/18. Pt. state she has been having pain since. Pt. states she was walking down steps and felt a pop in her left hip. She initially went to [facility] and was referred to ER because she had a decreased pulse in left foot. Hx of smoking. No significant past medical hx. Symptoms are moderate in severity. No associated fever, chills, N/V. - History of Current Complaint Chief Complaint: EDHipPelvisInjury Stated Complaint: LT HIP PAIN-SENT F/[facility] Time Seen by Provider: 05/11/18 12:07 Hx Obtained From: Patient Hx Last Menstrual Period: 05/06/18 Pain Intensity: 7 - Allergies/Home Medications Allergies/Adverse Reactions: Allergies Allergy/AdvReac Type Severity Reaction Status Date / Time hydrocodone [From Vicodin] Allergy Difficulty Verified 05/11/18 12:06 Breathing PMH/Surg Hx/FS Hx/Imm Hx Previously Healthy: Yes Endocrine/Hematology History: Denies: Hx Diabetes Cardiovascular History: Denies: Hx Hypertension, Hx Pacemaker/ICD History: Denies: Hx Dialysis, Hx Renal Disease Sensory History: Denies: Hx Contacts or Glasses, Hx Hearing Aid Opthamlomology History: Denies: Hx Contacts or Glasses Psychiatric History: Denies: Hx Panic Disorder - Surgical History Surgery Procedure, Year, and Place: Appendectomy, ~2010, [facility]. LEFT HIP SURGERY , 01/28/18 - ARTHROSCOPIC LABRAL REPAIR & IMPINGEMENT- Hx Anesthesia Reactions: No - Immunization History Immunizations Up to Date: Yes Infectious Disease History: No Infectious Disease History: Denies: Hx Clostridium Difficile, Hx Hepatitis, Hx Human Immunodeficiency Virus (HIV), Hx of Known/Suspected MRSA, Hx Shingles, Hx Tuberculosis, Hx Known/ Suspected VRE, Hx Known/Suspected VRSA, History Other Infectious Disease, Traveled Outside the [place] in Last 30 Days - Family History Known Family History: Positive: None - no reports of past medical history in family Negative: Cardiac Disease, Hypertension, Diabetes Family History: family hx of thyroid disorder - Social History Occupation: Employed Full-time Lives: With Family Alcohol Use: Rare Alcohol Amount: "special occasions like weddings" Hx Substance Use: No Substance Use Type: Reports: None Hx Tobacco Use: Yes Smoking Status (MU): Heavy Every Day Tobacco Smoker Type: Cigarettes Amount Used/How Often: 1/2 PPD X 10 YEARS Length of Time of Smoking/Using Tobacco: On and Off for 11 Years Have You Smoked in the Last Year: Yes Review of Systems Constitutional: Negative Negative: Fever, Chills Cardiovascular: Negative Respiratory: Negative Positive: Other - Left hip pain, tingling in left foot. All Other Systems Reviewed And Are Negative: Yes Physical Exam Triage Information Reviewed: Yes Vital Signs On Initial Exam: Initial Vitals Temp Pulse Resp BP Pulse Ox 98.7 F 90 16 121/90 98 05/11/18 12:01 05/11/18 12:01 05/11/18 12:01 05/11/18 12:01 05/11/18 12:01 Vital Signs Reviewed: Yes Appearance: Positive: Well-Appearing - Pt. lying in bed in NAD. Skin: Positive: Warm, Dry Head/Face: Positive: Normal Head/Face Inspection Eyes: Positive: Normal, EOMI Neck: Positive: Supple Musculoskeletal: Positive: Other - Diminished left palpable pedal pulse when compared to right. No leg edema, erythema. 5/5 strength. Neurological: Positive: Normal, CN Intact II-III Psychiatric: Positive: Affect/Mood Appropriate Diagnostics - Vital Signs Vital Signs Temp Pulse Resp BP Pulse Ox 05/11/18 12:01 98.7 F 90 16 121/90 98 - Laboratory Result Diagrams: 05/11/18 14:06 05/11/18 14:06 Lab Statement: Any lab studies that have been ordered have been reviewed, and results considered in the medical decision making process. Lower Extremity Course/Dx - Course Course Of Treatment: Pt. presenting for increased left hip and paresthesias to left foot. She does have decreased pedal pulses on left. Arterial duplex ordered. Reading per radiology: Ankle-brachial index on the right is 1.18. Ankle-brachial index on the left is 0.97. There. is decreased upstroke in the left dorsalis pedis artery. The right and left posterior. tibial and right dorsalis pedis artery demonstrates triphasic waveforms. Pulse volume recording demonstrates blunted waveforms in the left ankle. IMPRESSION: Slightly decreased left ankle-brachial index with diminished flow in the left. dorsalis pedis artery. Case discussed with Dr. Castrejon who recommends CTA for further evaluation. Basic labs drawn. CTA reading per radiology: IMPRESSION: Right lower extremity arterial system is grossly unremarkable. There is suggestion of stenosis of the left common femoral artery just distal to the left. external iliac artery. In addition there appears to be tapering decreased flow in the distal peroneal artery and. anterior tibial artery in the left calf. Dr. Castrejon discussed case with orthopedics, Dr. Villasenor. Dr. Villasenor recommends outpt. f.u. Dr. Castrejon discussed results with pt. Will rx a few days of percocet, HAND PACKER reviewed. Recommend daily ASA. To call ortho. tomorrow for an apt. To return to ER if sxs change or worsen. - Diagnoses Differential Diagnosis/HQI/PQRI: Positive: Contusion, DVT, Fracture (Closed), Infection, Sciatica, Sprain, Strain Provider Diagnoses: Hip pain, Arterial stenosis Discharge - Sign-Out/Discharge Documenting (check all that apply): Patient Departure - Discharge Plan Condition: Good Disposition: HOME Prescriptions: Aspirin TAB* [Aspirin 325 MG TAB*] 325 mg PO DAILY #30 tab oxyCODONE/Acetamin 5/325 MG* [Percocet 5/325 TAB*] 1 tab PO Q8H PRN #12 tab MDD 3 PRN Reason: Pain Patient Education Materials: Peripheral Artery Disease (ED), Hip Pain (ED) Referrals: Marty Crooks MD [Medical Doctor] - Domi Ly PA [Primary Care Provider] - Caroline Gutierrez MD [Medical Doctor] - Asif Everett MD [Medical Doctor] - Additional Instructions: Call first thing in the morning to follow-up with orthopedic surgeon and vascular surgery. Return with uncontrolled pain, numbness in the leg, worse, new symptoms or other concerns. - Billing Disposition and Condition Condition: GOOD Disposition: Home
--- NOTE | 2018-05-11 13:40 | RAD ---
Indication: Decreased pulses in the lower extremities. Ankle-brachial index on the right is 1.18. Ankle-brachial index on the left is 0.97. There is decreased upstroke in the left dorsalis pedis artery. The right and left posterior tibial and right dorsalis pedis artery demonstrates triphasic waveforms. Pulse volume recording demonstrates blunted waveforms in the left ankle. IMPRESSION: Slightly decreased left ankle-brachial index with diminished flow in the left dorsalis pedis artery.
[2018-05-11 14:13] LABS: ABS Basophils 0.1 10^3/ul (0-0.2); ABS Eosinophils 0.1 10^3/ul (0-0.6); ABS Lymphocytes 3.3 10^3/ul (1.0-4.8); ABS Monocytes 0.4 10^3/ul (0-0.8); ABS Neutrophils 6.8 10^3/ul (1.5-7.7); ABS Nucleated RBC 0 10^3/ul; Hematocrit 44 % (35-47); Hemoglobin 15.1 g/dl (12.0-16.0); Lymphocyte % 30.7 % (25-47); Mean Corpuscular HGB Conc 34 g/dl (31-36); Mean Corpuscular Hemoglobin 31 pg (27-31); Mean Corpuscular Volume 91 fL (80-97); Mean Platelet Volume 7.4 um3 (7.4-10.4); Nucleated Red Blood Cells % 0.1; Platelet Count 325 10^3/ul (150-450); Red Blood Count 4.81 10^6/ul (4.00-5.40); Red Cell Distribution Width 13 % (10.5-15); White Blood Count 10.6 10^3/ul (3.5-10.8)
--- NOTE | 2018-05-11 14:20 | RAD ---
Indication: Left hip pain. 2 views of the left hip and an AP view the pelvis demonstrates joint space to be well preserved. Pelvic ring is intact. There is no fracture or dislocation. Postoperative changes are noted. The left femoral head neck junction. IMPRESSION: No fracture is noted. No fracture of the left hip is identified.
[2018-05-11 14:30] LABS: EGFR Non-African American 95.8 (>60)
[2018-05-11] MEDS ORDERED: Iohexol 350* (CONTRAST) 500 ML MDV IV ONE (15:23)
--- NOTE | 2018-05-11 16:37 | RAD ---
Indication: Left lower extremity diminished pedal pulses. CTA of the lower extremity arterial system was performed after intravenous injection of 125 mL of Omnipaque 350. The abdominal aorta, common iliac artery, external iliac artery and common femoral artery on the right are unremarkable. Ducts are there is suggestion of decreased flow at the left common femoral artery just distal to the left external iliac artery. This may represent a stenosis. Bilaterally the superficial femoral arteries appear patent and compressible. Popliteal artery appears patent bilaterally. The right lower extremity demonstrates normal three-vessel flow in the calf. The left calf demonstrates diminishing flow in the peroneal and anterior tibial artery in the left. No discrete obstructing lesions are noted. IMPRESSION: Right lower extremity arterial system is grossly unremarkable. There is suggestion of stenosis of the left common femoral artery just distal to the left external iliac artery. In addition there appears to be tapering decreased flow in the distal peroneal artery and anterior tibial artery in the left calf.
[2018-05-11 18:11] VITALS: BP 0/0
--- NOTE | 2018-05-11 18:47 | ED ---
Progress - Progress Note Progress Note: I supervised the care of the physician assistant chief train dispatcher and I performed a history and physical on this patient. History: Chronic, recurring pain in the left hip now affecting the entire leg with some tingling in the toes. Sent from [facility] with concern for decreased dorsalis pedis pulse. Physical exam: Uncomfortable-appearing with diminished dorsalis pedis pulse. Ambulatory without limp. Plan: Ankle-brachial index is slightly diminished on that affected left side. A CT angiogram was performed and showed some stricturing proximally in the iliac vessel. I discussed this case with orthopedist who states that the patient could be seen outpatient by vascular and by them. Referral was made. Following patient disposition the interventional radiologist called and had over read the film. He feels as though he potentially could stent this vessel. He states that this vessel has similar appearance for up to 2 years time, which preceded her surgery. IR contacted the patient and will f/u. Pt treated symptomatically for pain Course/Dx - Diagnoses Provider Diagnoses: Hip pain, Arterial stenosis Discharge - Sign-Out/Discharge Documenting (check all that apply): Patient Departure - discharge - Discharge Plan Condition: Good Disposition: HOME Prescriptions: Aspirin TAB* [Aspirin 325 MG TAB*] 325 mg PO DAILY #30 tab oxyCODONE/Acetamin 5/325 MG* [Percocet 5/325 TAB*] 1 tab PO Q8H PRN #12 tab MDD 3 PRN Reason: Pain Patient Education Materials: Peripheral Artery Disease (ED), Hip Pain (ED) Referrals: Marty Crooks MD [Medical Doctor] - Asif Everett MD [Medical Doctor] - Domi Ly PA [Primary Care Provider] - Carolnie Gutierrez MD [Medical Doctor] - Additional Instructions: Call first thing in the morning to follow-up with orthopedic surgeon and vascular surgery. Return with uncontrolled pain, numbness in the leg, worse, new symptoms or other concerns. - Billing Disposition and Condition Condition: GOOD Disposition: Home - Attestation Statements Document Initiated by Scribe: Yes Documenting Scribe: Shane Hyatt Provider For Whom Mala is Documenting (Include Credential): Abraham Castrejon MD Scribe Attestation: I, Shane Hyatt, scribed for Abraham Castrejon MD on 05/11/18 at 1909. Scribe Documentation Reviewed: Yes Provider Attestation: The documentation as recorded by the scribe, Shane Hyatt accurately reflects the service I personally performed and the decisions made by me, Abraham Castrejon MD
== END 2018-05-11 18:10 | disposition home or self-care (01) ==
LOC: ED 11:48
DX: M25.559 Pain in unspecified hip (principal); I77.1 Stricture of artery; F17.210 Nicotine dependence, cigarettes, uncomplicated
CPT/HCPCS: 36415; 73706; 80053; 84702; 85025; 93922; 99282; Q9967

== ENCOUNTER 2018-06-02 16:26 | Emergency (ER) | payer BC ==
--- OUTSIDE RECORDS SUMMARY | 2018-06-02 17:00 | XMS REPORT ---
:1990 External Reference #:[id number] Author Organization [facility] Address [address], [address] [place] [address] Phone [phone] Care Team Providers Name Role Phone Eleonora Barnett M.D. 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 Primary Care Physician Unavailable Payers Type Date Identification Numbers Payment Provider Subscriber Commercial Policy Number: [id number] Jean Claudeus Marlyn Mayfield PayID: [id number] [address] [address] [place] [address] Problems Date Description Provider Status Onset: 10/04/2011 Anxiety state Myrna Marquez FNP Active Onset: 06/18/2011 Headache Myrna Marquez FNP Active Social History Type Date Description Comments Lives With Diet Healthy, Well Balanced ETOH Use Rarely consumes alcohol Smoking Light tobacco smoker (10 or fewer cigarettes/day) Allergies, Adverse Reactions, Alerts Date Description Reaction Status Severity Comments 06/14/2011 Vicodin active Medications Medication Date Status Form Strength Qnty SIG Indications Ordering Provider Xanax 05/26/ Active Tablets 0.25mg 6tabs Take 1 2017 tablet by RAO Vasquez mouth up to 3 times per day as needed for anxiety. Reference #: [id number] Tri-Sprintec 11/20/ Active Tablets 0.18/0.215 28tabs 1 by mouth Mynor, 2015 /0.25 every day MD Shanel mg-35 mcg Ra Aspirin / Active Tablets 325mg Unknown 0000 Oxycodone-Aceta / Active Tablets 5-325mg Unknown minophen 0000 Ondansetron 08/08/ Hx Tablets 4mg 15tabs 1 by mouth R11.2 Ericka, 2016 - Dispers every 4 Eleonora, 05/04/ hour as Celina 2017 needed Ortho 07/20/ Hx Tablets 0.18/0.215 28tabs 1 by mouth Jane HoldenCyclen Lo 2014 - /0.25 every day Jena 11/20/ mg-25 mcg MD 2015 Tri-Sprintec 12/22/ Hx Tablets 0.18/0.215 28tabs 1 by mouth Adina 2014 - /0.25 every day Jena 07/20/ mg-35 mcg MD 2014 Nortriptyline 10/18/ Hx Capsules 10mg 60caps 1-2 cap by ANTONIO Holden 2014 - mouth Jena 07/10/ every day MD 2014 every night Fluconazole 10/17/ Hx Tablets 150mg 1tabs 1 by mouth Adina, 2014 - every day Jena 07/10/ x 1 MD 2014 Tri-Sprintec 01/13/ Hx Tablets 28tabs 1 by mouth Adina, 2013 - every day Jena 12/22/ MD 2014 Ibuprofen 01/06/ Hx Tablets 600mg 50tabs one every Adina, 2013 - 4 hours by Jena 08/08/ mouth MD nereyda 2015 needed Triamcinolone 07/13/ Hx Cream 0.1% 30unit apply [facility] 08/08/ bid MD 2015 Immunizations CPT Code Status Date Vaccine Lot # [id number] Given 12/14/2013 Tdap injection [id number] Given 12/20/2011 Tdap injection Vital Signs Date Vital Result Comment 05/22/2018 BP Systolic Sitting Left Arm 120 mmHg BP Diastolic Sitting Left Arm 74 mmHg Body Temperature 98.3 F Heart Rate 76 /min Height 64 inches 5'4" Weight 163.25 lb BMI (Body Mass Index) 28.0 kg/m2 BSA (Body Surface Area) 1.79 m2 [place] body weight in kilograms 54 O2 % BldC Oximetry 98 % 08/08/2016 BP Systolic 104 mmHg BP Diastolic 68 mmHg Body Temperature 98.7 F Heart Rate 80 /min Respiratory Rate 18 /min Height 64 inches 5'4" Weight 155.00 lb BMI (Body Mass Index) 26.6 kg/m2 BSA (Body Surface Area) 1.76 m2 Lindstrom body weight in kilograms 54 Last Menstrual Period [id number] O2 % BldC Oximetry 99 % 07/10/2015 BP Systolic 134 mmHg BP Diastolic 80 mmHg Height 64 inches 5'4" Weight 159.00 lb BMI (Body Mass Index) 27.3 kg/m2 BSA (Body Surface Area) 1.77 m2 10/17/2014 BP Systolic 112 mmHg BP Diastolic 74 mmHg Height 65 inches 5'5" Weight 150.00 lb 02/23/2014 BP Systolic 124 mmHg BP Diastolic 74 mmHg Height 65 inches 5'5" Weight 155.00 lb 02/03/2014 BP Systolic 118 mmHg BP Diastolic 80 mmHg Height 65 inches 5'5" Weight 155.00 lb 12/29/2013 BP Systolic 112 mmHg BP Diastolic 70 mmHg Height 65 inches 5'5" Weight 170.00 lb 12/23/2013 BP Systolic 102 mmHg BP Diastolic 66 mmHg Height 65 inches 5'5" Weight 169.00 lb 12/14/2013 BP Systolic 104 mmHg BP Diastolic 62 mmHg Height 65 inches 5'5" Weight 170.00 lb 12/08/2013 BP Systolic 102 mmHg BP Diastolic 64 mmHg Height 65 inches 5'5" Weight 167.00 lb 12/01/2013 BP Systolic 110 mmHg BP Diastolic 62 mmHg Height 65 inches 5'5" Weight 168.00 lb 12/01/2013 BP Systolic 110 mmHg BP Diastolic 62 mmHg Height 65 inches 5'5" Weight 168.00 lb 11/18/2013 BP Systolic 104 mmHg BP Diastolic 60 mmHg Height 65 inches 5'5" Weight 164.00 lb 11/11/2013 BP Systolic 100 mmHg BP Diastolic 58 mmHg Height 65 inches 5'5" Weight 165.00 lb 10/19/2013 BP Systolic 102 mmHg BP Diastolic 58 mmHg Height 65 inches 5'5" Weight 159.00 lb 09/21/2013 BP Systolic 104 mmHg BP Diastolic 62 mmHg Height 65 inches 5'5" Weight 156.00 lb 07/13/2013 BP Systolic 108 mmHg BP Diastolic 62 mmHg Body Temperature 98.4 F Height 65 inches 5'5" Weight 143.00 lb 11/16/2012 BP Systolic 112 mmHg BP Diastolic 70 mmHg Height 66 inches 5'6" Weight 142.00 lb 10/04/2011 BP Systolic 102 mmHg BP Diastolic 76 mmHg Heart Rate 80 /min Height 66 inches 5'6" Weight 144.00 lb 06/14/2011 BP Systolic 102 mmHg BP Diastolic 72 mmHg Body Temperature 98.7 F Heart Rate 64 /min Height 66 inches 5'6" Weight 151.00 lb 01/31/2006 Height 63 inches 5'3" Weight 149.00 lb Results Test Date Test Result H/L Range Note Urine Dipstick 05/22/2018 Ua Color yellow Yellow Ua Clarity clear Clear Ua Leuko negative Negative Ua Nitrite negative Negative Ua Urobilinogen 0.2 0.2 - 1.0 E.U./dL Ua Protein negative Negative Ua PH 6.5 6.5-7.5 Ua Blood trace Negative Ua Specific [place] 1.010 1.010-1.030 Ua Ketones negative Negative Ua Bilirubin negative Negative Ua Glucose negative Negative Slide Review 05/22/2018 Slide Review (SEE NOTE) 1, 2 Anticoagulant Therapy? NO 1 CBC W/Automated Diff 05/22/2018 White Blood Count 11.7 K/uL High 3.1-10.7 1 Red Blood Count 4.40 M/uL 3.90-5.40 1 Hemoglobin 14.0 gm/dL 11.6-15.8 1 Hematocrit 40.4 % 36.0-46.1 1 Mean Cell Volume 91.8 fl 80.9-99.0 1 Mean Corpuscular HGB 31.8 pg 25.9-32.7 1 Mean Corpuscular HGB Conc 34.7 g/dL High 30.8-34.3 1 Platelet Count 286 K/uL 155-360 1 Red Cell Distri Width SD 39.8 fl 3-47 1 Red Cell Distri Width %CV 12.3 % 11.7-14.4 1 Mean Platelet Volume 10.3 fL 8.9-12.4 1 Neut% 65.6 % 40.4-72.8 1 Lymph % 26.3 % 20.0-42.0 1 [place] % 6.4 % 4.3-13.2 1 Eo% 1.4 % 0.0-6.6 1 Bas% 0.3 % 0.0-1.1 1 Neut# 7.70 K/uL High 1.8-7.0 1 Lymph # 3.08 K/uL 1.0-4.0 1 [place] # 0.75 K/uL 0.3-0.9 1 Eos # 0.17 K/uL 0.0-0.5 1 Baso # 0.03 K/uL 0.0-0.1 1 Anticoagulant Therapy? NO 1 Comprehensive Metabolic Panel 05/22/2018 Glucose 78 mg/dL 74-106 1 BUN 9 mg/dL 7-18 1 Creatinine 0.8 mg/dL 0.6-1.3 1 Glom Filtration Rate, Estimate >60 mL/min >60 1 If >60 mL/min >60 1, 3 BUN/Creat 11.2 ratio 1 Sodium 139 mmol/L 136-145 1 Potassium 4.4 mmol/L 3.5-5.1 1 Chloride 106 mmol/L 98-107 1 Carbon Dioxide 25 mmol/L 21-32 1 Anion Gap 8 mEq/L 8-16 1 Calcium 8.7 mg/dL 8.5-10.1 1 Total Protein 7.7 g/dL 6.4-8.2 1 Albumin 3.6 g/dL 3.4-5.0 1 Globulin 4.1 g/dL 1.9-4.3 1 Alb/Glob 0.9 ratio 1 Bilirubin,Total 0.3 mg/dL 0.2-1.0 1 Sgot/Ast 14 U/L Low 15-37 1, 4 SGPT/Alt 24 U/L 12-78 1 Alkaline Phosphatase 73 U/L 45-117 1 Act Partial Thrombo Time 05/22/2018 Act Partial Thrombo 28.4 seconds 23.4 -35.0 1 Time Anticoagulant Therapy? NO 1 Protime 05/22/2018 Protime 12.2 seconds 12.0-14.4 1 Inr 0.9 0.9-1.1 1, 5 Anticoagulant Therapy? NO 1 Laboratory test finding 05/11/2018 HCG < 0.60 mIU/mL 6 CBC Auto Diff 05/11/2018 White Blood Count 10.6 10^3/uL 3.5-10.8 Red Blood Count 4.81 10^6/uL 4.00-5.40 Hemoglobin 15.1 g/dL 12.0-16.0 Hematocrit 44 % 35-47 Mean Corpuscular Volume 91 fL 80-97 Mean Corpuscular Hemoglobin 31 pg 27-31 Mean Corpuscular HGB Conc 34 g/dL 31-36 Red Cell Distribution Width 13 % 10.5-15 Platelet Count 325 10^3/uL 150-450 Mean Platelet Volume 7.4 um3 7.4-10.4 Abs Neutrophils 6.8 10^3/uL 1.5-7.7 Abs Lymphocytes 3.3 10^3/uL 1.0-4.8 Abs Monocytes 0.4 10^3/uL 0-0.8 Abs Eosinophils 0.1 10^3/uL 0-0.6 Abs Basophils 0.1 10^3/uL 0-0.2 Abs Nucleated RBC 0 10^3/uL Granulocyte % 64.0 % 38-83 Lymphocyte % 30.7 % 25-47 Monocyte % 3.8 % 0-7 Eosinophil % 1.0 % 0-6 Basophil % 0.5 % 0-2 Nucleated Red Blood Cells % 0.1 Comp Metabolic Panel 05/11/2018 Sodium 139 mmol/L 135-145 Potassium 4.2 mmol/L 3.5-5.0 Chloride 106 mmol/L 101-111 Co2 Carbon Dioxide 26 mmol/L 22-32 Anion Gap 7 mmol/L 2-11 Glucose 86 mg/dL 70-100 Blood Urea Nitrogen 7 mg/dL 6-24 Creatinine 0.72 mg/dL 0.51-0.95 BUN/Creatinine Ratio 9.7 8-20 Calcium 9.4 mg/dL 8.6-10.3 Total Protein 7.2 g/dL 6.4-8.9 Albumin 4.4 g/dL 3.2-5.2 Globulin 2.8 g/dL 2-4 Albumin/Globulin Ratio 1.6 1-3 Total Bilirubin 0.50 mg/dL 0.2-1.0 Alkaline Phosphatase 74 U/L 34-104 Alt 12 U/L 7-52 Ast 14 U/L 13-39 Egfr Non- 95.8 >60 Egfr 115.9 >60 7 Laboratory test 05/19/2017 Urine Culture SEE RESULT BELOW 8, 9 finding Laboratory test 11/05/2016 Urine Culture SEE RESULT BELOW 10, 11 finding Celiac Panel 08/08/2016 Tissue Transglutaminase <1.2 U/mL 12 IgA Ab Immunoglobulin A 419 mg/dL 61 - 356 Celiac Interpretation See Comment 13 CBC Auto Diff 08/08/2016 White Blood Count 10.3 10^3/uL 3.5-10.8 Red Blood Count 4.29 10^6/uL 4.0-5.4 Hemoglobin 13.1 g/dL 12.0-16.0 Hematocrit 38 % 35-47 Mean Corpuscular Volume 89 fL 80-97 Mean Corpuscular Hemoglobin 31 pg 27-31 Mean Corpuscular HGB Conc 34 g/dL 31-36 Red Cell Distribution Width 13 % 10.5-15 Platelet Count 254 10^3/uL 150-450 Mean Platelet Volume 8 um3 7.4-10.4 Abs Neutrophils 7.0 10^3/uL 1.5-7.7 Abs Lymphocytes 2.2 10^3/uL 1.0-4.8 Abs Monocytes 0.9 10^3/uL High 0-0.8 Abs Eosinophils 0.1 10^3/uL 0-0.6 Abs Basophils 0.1 10^3/uL 0-0.2 Abs Nucleated RBC 0 10^3/uL Granulocyte % 68.1 % 38-83 Lymphocyte % 21.4 % Low 25-47 Monocyte % 9.1 % High 1-9 Eosinophil % 0.9 % 0-6 Basophil % 0.5 % 0-2 Nucleated Red Blood Cells % 0 Laboratory Studies 08/05/2016 Urine Specific [place] 1.008 Low 1.010- 1.030 Urine pH 6.0 5-9 Laboratory test finding 08/05/2016 Urine Culture SEE RESULT BELOW 14 Laboratory Studies 08/05/2016 Absolute Basophils 0 10^3/ul 0-0.2 (auto) Absolute Eosinophils (auto) 0.2 10^3/ul 0-0.6 Absolute Lymphocytes (auto) 3.1 10^3/ul 1.0-4.8 Absolute Monocytes (auto) 1.0 10^3/ul High 0-0.8 Absolute Neutrophils (auto) 7.6 10^3/ul 1.5-7.7 Alanine Aminotransferase (Alt/SGPT) 19 U/L 7-52 Albumin 4.1 g/dL 3.2-5.2 Albumin/Globulin Ratio 1.4 1-3 Alkaline Phosphatase 70 U/L 34-104 Anion Gap 6 mmol/L 2-11 Aspartate Amino Transf (Ast/Sgot) 18 U/L 13-39 BUN/Creatinine Ratio 7.9 Low 8-20 Basophils (%) (Auto) 0.4 % 0-2 Beta HCG, Quantitative 0.71 mIU/mL Blood Urea Nitrogen 8 mg/dL 6-24 C-Reactive Protein 20.03 mg/L High 0-5.00 Calcium Level 9.1 mg/dL 8.6-10.3 Carbon Dioxide Level 24 mmol/L 22-32 Chloride Level 107 mmol/L 101-111 Creatinine 1.01 mg/dL High 0.51-0.95 Eosinophils (%) (Auto) 1.9 % 0-6 Estimated GFR () 84.6 Estimated GFR (Non- 65.7 Globulin 3.0 g/dL 2-4 Glucose Level 93 mg/dL 70-100 Hematocrit 43 % 35-47 Hemoglobin 14.8 g/dL 12.0-16.0 Lipase 4 U/L Low 11.0-82.0 Lymphocytes (%) (Auto) 26.1 % 25-47 Magnesium Level 1.9 mg/dL 1.9-2.7 Mean Corpuscular Hemoglobin 31 pg 27-31 Mean Corpuscular Hemoglobin Concent 34 g/dL 31-36 Mean Corpuscular Volume 89 fL 80-97 Mean Platelet Volume 8 um3 7.4-10.4 Monocytes (%) (Auto) 8.3 % 1-9 Neutrophils (%) (Auto) 63.3 % 38-83 Nucleated RBC Absolute Count (auto) 0.01 10^3/ul Nucleated Red Blood Cells % 0.1 Platelet Count 289 10^3/ul 150-450 Potassium Level 3.4 mmol/L Low 3.5-5.0 Red Blood Count 4.84 10^6/ul 4.0-5.4 Red Cell Distribution Width 13 % 10.5-15 Sodium Level 137 mmol/L 133-145 Total Bilirubin 0.40 mg/dL 0.2-1.0 Total Protein 7.1 g/dL 6.4-8.9 White Blood Count 12.0 10^3/ul High 3.5-10.8 Laboratory test 08/05/2016 Blood Culture SEE RESULT BELOW 15, 16 finding CBC Auto Diff 08/02/2016 White Blood Count 14.4 10^3/uL High 3.5-10.8 17 Red Blood Count 4.78 10^6/uL 4.0-5.4 17 Hemoglobin 14.7 g/dL 12.0-16.0 17 Hematocrit 43 % 35-47 17 Mean Corpuscular Volume 90 fL 80-97 17 Mean Corpuscular Hemoglobin 31 pg 27-31 17 Mean Corpuscular HGB Conc 34 g/dL 31-36 17 Red Cell Distribution Width 12 % 10.5-15 17 Platelet Count 300 10^3/uL 150-450 17 Mean Platelet Volume 9 um3 7.4-10.4 17 Abs Neutrophils 11.0 10^3/uL High 1.5-7.7 17 Abs Lymphocytes 2.5 10^3/uL 1.0-4.8 17 Abs Monocytes 0.7 10^3/uL 0-0.8 17 Abs Eosinophils 0.2 10^3/uL 0-0.6 17 Abs Basophils 0.1 10^3/uL 0-0.2 17 Abs Nucleated RBC 0.03 10^3/uL 17 Granulocyte % 76.4 % 38-83 17 Lymphocyte % 17.4 % Low 25-47 17 Monocyte % 4.8 % 1-9 17 Eosinophil % 1.1 % 0-6 17 Basophil % 0.3 % 0-2 17 Nucleated Red Blood Cells % 0.2 17 Laboratory test 08/02/2016 TSH (Thyroid 1.04 mcIU/mL 0.34-5.60 17, 18 finding Stimulating Horm) Comp Metabolic Panel 08/02/2016 Sodium 139 mmol/L 133-145 17 Potassium 3.9 mmol/L 3.5-5.0 17 Chloride 108 mmol/L 101-111 17 Co2 Carbon Dioxide 23 mmol/L 22-32 17 Anion Gap 8 mmol/L 2-11 17 Glucose 79 mg/dL 70-100 17 Blood Urea Nitrogen 9 mg/dL 6-24 17 Creatinine 0.77 mg/dL 0.51-0.95 17 BUN/Creatinine Ratio 11.7 8-20 17 Calcium 9.3 mg/dL 8.6-10.3 17 Total Protein 7.1 g/dL 6.4-8.9 17 Albumin 4.3 g/dL 3.2-5.2 17 Globulin 2.8 g/dL 2-4 17 Albumin/Globulin Ratio 1.5 1-3 17 Total Bilirubin 0.40 mg/dL 0.2-1.0 17 Alkaline Phosphatase 82 U/L 34-104 17 Alt 14 U/L 7-52 17 Ast 17 U/L 13-39 17 Egfr Non- 89.9 >60 17 Egfr 115.6 >60 17, 19 Laboratory test 08/02/2016 Vitamin D 80 pg/mL 18-78 17, 20 finding 1,25-Dihydroxy CBC Auto Diff 03/19/2016 White Blood Count 11.0 10^3/uL High 3.5-10.8 21 Red Blood Count 4.48 10^6/uL 4.0-5.4 21 Hemoglobin 13.9 g/dL 12.0-16.0 21 Hematocrit 41 % 35-47 21 Mean Corpuscular Volume 91 fL 80-97 21 Mean Corpuscular Hemoglobin 31 pg 27-31 21 Mean Corpuscular HGB Conc 34 g/dL 31-36 21 Red Cell Distribution Width 13 % 10.5-15 21 Platelet Count 300 10^3/uL 150-450 21 Mean Platelet Volume 8 um3 7.4-10.4 21 Abs Neutrophils 6.6 10^3/uL 1.5-7.7 21 Abs Lymphocytes 3.4 10^3/uL 1.0-4.8 21 Abs Monocytes 0.6 10^3/uL 0-0.8 21 Abs Eosinophils 0.4 10^3/uL 0-0.6 21 Abs Basophils 0 10^3/uL 0-0.2 21 Abs Nucleated RBC 0.01 10^3/uL 21 Granulocyte % 60.2 % 38-83 21 Lymphocyte % 30.4 % 25-47 21 Monocyte % 5.6 % 1-9 21 Eosinophil % 3.4 % 0-6 21 Basophil % 0.4 % 0-2 21 Nucleated Red Blood Cells % 0.1 21 Laboratory test 03/19/2016 TSH (Thyroid 1.08 mcIU/mL 0.34-5.60 21, 22 finding Stimulating Horm) CBC W/Automated Diff 07/11/2015 White Blood Count 9.8 10^3/uL 4.8-10.8 Red Blood Count 4.72 10^6/uL 4.0-5.4 Hemoglobin 14.7 g/dL 12.0-16.0 Hematocrit 44 % 35-47 Mean Corpuscular Volume 93 fL 80-97 Mean Corpuscular Hemoglobin 31 pg 27-31 Mean Corpuscular HGB Conc 34 g/dL 31-36 Red Cell Distribution Width 13 % 10.5-15 Platelet Count 305 10^3/uL 150-450 Mean Platelet Volume 8 um3 7.4-10.4 Abs Neutrophils 5.6 10^3/uL 1.5-7.7 Abs Lymphocytes 3.0 10^3/uL 1.0-4.8 Abs Monocytes 0.8 10^3/uL 0-0.8 Abs Eosinophils 0.4 10^3/uL 0-0.6 Abs Basophils 0.1 10^3/uL 0-0.2 Abs Nucleated RBC 0.01 10^3/uL Granulocyte % 56.9 % 38-83 Lymphocyte % 30.2 % 25-47 Monocyte % 7.9 % 1-9 Eosinophil % 4.5 % 0-6 Basophil % 0.5 % 0-2 Nucleated Red Blood Cells % 0.1 Laboratory test finding 07/11/2015 TSH (Thyroid Stimulating 0.81 ?IU/mL 0.34-5.60 Horm) Erythrocyte Sed Rate 9 mm/Hr 0-14 C Reactive Protein 3.24 mg/L < 5.00 23 Creatine Kinase 42 U/L 10-223 Magnesium 2.0 mg/dL 1.9-2.7 Basic Metabolic Panel 07/11/2015 Sodium 136 mmol/L 133-145 Potassium 4.2 mmol/L 3.5-5.0 Chloride 104 mmol/L 101-111 Co2 Carbon Dioxide 27 mmol/L 22-32 Anion Gap 5 mmol/L 2-11 Glucose 72 mg/dL 70-100 Blood Urea Nitrogen 10 mg/dL 6-24 Creatinine 0.82 mg/dL 0.51-0.95 BUN/Creatinine Ratio 12.2 8-20 Calcium 9.0 mg/dL 8.6-10.3 Egfr Non- 84.3 >60 Egfr 108.4 >60 24 Laboratory test finding 07/11/2015 Nicolette (Anti-Nuclear AB) Negative Negative Screen CBC Auto Diff 02/01/2015 White Blood Count 9.1 10^3/uL 4.8-10.8 Red Blood Count 4.64 10^6/uL 4.0-5.4 Hemoglobin 14.3 g/dL 12.0-16.0 Hematocrit 42 % 35-47 Mean Corpuscular Volume 91 fL 80-97 Mean Corpuscular Hemoglobin 31 pg 27-31 Mean Corpuscular HGB Conc 34 g/dL 31-36 Red Cell Distribution Width 13 % 10.5-15 Platelet Count 262 10^3/uL 150-450 Mean Platelet Volume 8 um3 7.4-10.4 Abs Neutrophils 4.9 10^3/uL 1.5-7.7 Abs Lymphocytes 3.4 10^3/uL 1.0-4.8 Abs Monocytes 0.6 10^3/uL 0-0.8 Abs Eosinophils 0.1 10^3/uL 0-0.6 Abs Basophils 0 10^3/uL 0-0.2 Abs Nucleated RBC 0.01 10^3/uL Granulocyte % 53.9 % 38-83 Lymphocyte % 37.5 % 25-47 Monocyte % 6.7 % 1-9 Eosinophil % 1.4 % 0-6 Basophil % 0.5 % 0-2 Nucleated Red Blood Cells % 0.1 Laboratory test finding 02/01/2015 Nicolette (Anti-Nuclear AB) Negative Negative Screen Lyme Disease Serology Negative Negative 25 Laboratory test 02/01/2015 TSH (Thyroid 1.00 ?IU/mL 0.34-5.60 finding Stimulating Horm) Laboratory test 02/01/2015 C Reactive Protein 7.06 mg/L High < 5.00 26 finding Erythrocyte Sed Rate 8 mm/Hr 0-14 Basic Metabolic Panel 02/01/2015 Sodium 137 mmol/L 133-145 Potassium 3.9 mmol/L 3.5-5.0 Chloride 104 mmol/L 101-111 Co2 Carbon Dioxide 27 mmol/L 22-32 Anion Gap 6 mmol/L 2-11 Glucose 104 mg/dL High 70-100 Blood Urea Nitrogen 12 mg/dL 6-24 Creatinine 0.80 mg/dL 0.51-0.95 BUN/Creatinine Ratio 15.0 8-20 Calcium 9.2 mg/dL 8.6-10.3 Egfr Non- 86.7 >60 Egfr 111.5 >60 27 Liver Function Tests 02/01/2015 Total Protein 7.0 g/dL 6.4-8.9 Albumin 4.2 g/dL 3.2-5.2 Globulin 2.8 g/dL 2-4 Albumin/Globulin Ratio 1.5 1-3 Total Bilirubin 0.40 mg/dL 0.2-1.0 Direct Bilirubin 0.10 mg/dL 0.03-0.18 Indirect Bilirubin 0.3 mg/dL 0.3-1.0 Alkaline Phosphatase 62 U/L 34-104 Alt 10 U/L 7-52 Ast 15 U/L 13-39 Rapid Influenza A B 08/18/2014 Rapid Influenza A B (See Note) 28, 29 Antigen Antigen Iron-Tibc-%Sat 05/27/2014 % Iron Saturation 33 % 15-55 Iron 148 g/dL 50-212 Total Iron Binding Capacity 448 g/dL 250-450 Unsaturated Iron Binding 300 g/dL Laboratory test finding 05/27/2014 TSH (Thyroid Stimulating 1.02 IU/mL 0.34-5.60 Horm) CBC 05/27/2014 Hematocrit 39 % 35-47 Hemoglobin 14.3 g/dL 12.0-16.0 Mean Corpuscular HGB Conc 37 g/dL High 31-36 Mean Corpuscular Hemoglobin 31 pg 27-31 Mean Corpuscular Volume 84 fL 80-97 Mean Platelet Volume 8 um3 7.4-10.4 Platelet Count 280 10^3/uL 150-450 Red Blood Count 4.65 10^6/uL 4.0-5.4 Red Cell Distribution Width 13 % 10.5-15 White Blood Count 9.9 10^3/uL 4.8-10.8 CBC 01/05/2014 Hematocrit 34.3 % Low 36.0-46.1 Hemoglobin 12.4 gm/dL 11.6-15.8 Mean Cell Volume 89.6 fl 80.9-99.0 Mean Corpuscular HGB 32.4 pg 25.9-32.7 Mean Corpuscular HGB Conc 36.2 g/dL High 30.8-34.3 Mean Platelet Volume 10.3 fL 8.9-12.4 Platelet Count 277 K/uL 155-360 Red Blood Count 3.83 M/uL Low 3.90-5.40 Red Cell Distri Width %CV 13.0 % 11.7-14.4 White Blood Count 13.8 K/uL High 3.1-10.7 Laboratory test 01/05/2014 Rapid Plasma Nonreactive 30 finding Reagin Nonreactive Type And Screen 01/05/2014 Antibody Screen Negative Negative Patient Blood Type O Neg CBC 01/01/2014 Hematocrit 34.7 % Low 36.0-46.1 Hemoglobin 12.6 gm/dL 11.6-15.8 Mean Cell Volume 89.4 fl 80.9-99.0 Mean Corpuscular HGB 32.5 pg 25.9-32.7 Mean Corpuscular HGB Conc 36.3 g/dL High 30.8-34.3 Mean Platelet Volume 10.0 fL 8.9-12.4 Platelet Count 294 K/uL 155-360 Red Blood Count 3.88 M/uL Low 3.90-5.40 Red Cell Distri Width %CV 13.1 % 11.7-14.4 White Blood Count 16.8 K/uL High 3.1-10.7 Type And Screen 01/01/2014 Antibody Screen Negative Negative Patient Blood Type O Neg Laboratory test 01/01/2014 Rapid Plasma Reagin Nonreactive 31 finding Nonreactive Laboratory test 12/01/2013 Vaginal Strep See Note 32 finding Screen Chlamydia/GC Yamile 12/01/2013 Chlamydia Negative Negative Trachomatis, Yamile Neisseria Gonorrhoeae, Yamile Negative Negative Please note: See Note 33 Laboratory test finding 10/19/2013 1 HR Glucose,Post Glucola 118 mg/dL - 138 34 1 Hour Urine Glucose See Note % Negative 35 1 Hour Urine Ketone See Note Negative 36 Antibody Screen See Note 37 Hemoglobin/Hematocrit 10/19/2013 Hematocrit 31.9 % Low 36.0-46.1 Hemoglobin 11.2 gm/dL Low 11.6-15.8 Laboratory test finding 08/25/2013 Referred to Integrated See Note 38 Genetic Laboratory test finding 08/19/2013 Referred to Integrated See Note 39 Genetic Laboratory test finding 08/09/2013 Urine Culture See Note 40 Laboratory test finding 07/13/2013 Nicolette (Anti-Nuclear AB) Negative Negative 41 Screen C Reactive Protein 5.5 mg/dL High Less than 0.5 Erythrocyte Sed Rate 29 mm/Hr High 0-14 CBC With Manual Diff 07/13/2013 Abs Basophils 0 10^3/uL 0-0.2 Abs Eosinophils 0 10^3/uL 0-0.6 Abs Lymphocytes 1.8 10^3/uL 1.0-4.8 Abs Monocytes 0.9 10^3/uL High 0-0.8 Abs Neutrophils 6.5 10^3/uL 1.5-7.7 Abs Nucleated RBC 0.01 10^3/uL Band % 3 % 0-8 Hematocrit 35 % 35-47 Hemoglobin 12.4 g/dL 12.0-16.0 Lymphocytes % 20 % Low 25-47 Mean Corpuscular HGB Conc 36 g/dL 31-36 Mean Corpuscular Hemoglobin 32 pg High 27-31 Mean Corpuscular Volume 89 fL 80-97 Mean Platelet Volume 7 um3 Low 7.4-10.4 Monocytes % 4 % 0-13 Neutrophil % 72 % 38-83 Platelet Count 262 10^3/uL 150-450 RBC Morphology Normal Normal Reactive Lymph % 1 % 0-6 Red Blood Count 3.92 10^6/uL Low 4.0-5.4 Red Cell Distribution Width 13 % 10.5-15 White Blood Count 9.3 10^3/uL 4.8-10.8 Laboratory test finding 06/17/2013 Antibody Detection See Note 42 Bas% 0.2 % 0.0-1.1 Baso # 0.02 K/uL 0.0-0.1 Eo% 1.4 % 0.0-6.6 Eos # 0.14 K/uL 0.0-0.5 HPV High Risk Negative Negative 43 Hematocrit 38.4 % 36.0-46.1 Hemoglobin 13.3 gm/dL 11.6-15.8 Hepatitis B Surface Antigen Nonreactive Nonreactive 44 Lead,Blood (Adult) 2 g/dL 0-19 45 Lymph # 2.31 K/uL 0.8-3.4 Lymph % 23.5 % 17.0-46.1 Mean Cell Volume 92.5 fl 80.9-99.0 Mean Corpuscular HGB 32.0 pg 25.9-32.7 Mean Corpuscular HGB Conc 34.6 g/dL High 30.8-34.3 Mean Platelet Volume 9.8 fL 8.9-12.4 [place] # 0.82 K/uL 0.3-0.9 [place] % 8.3 % 4.3-13.2 Neut# 6.54 K/uL 1.0-7.0 Neut% 66.6 % 40.4-72.8 Platelet Count 271 K/uL 155-360 Rapid Plasma Reagin Nonreactive Nonreactive 46 Red Blood Count 4.15 M/uL 3.90-5.40 Red Cell Distri Width %CV 12.6 % 11.7-14.4 Red Cell Distri Width SD 40.5 fl 3-47 Rubella IgG Antibody Reactive Reactive ThinPrep Pap: Cervix/Endocx See Note 47 Urine Culture See Note 48 Varicella-Zoster Virus IgG Ab 2.17 Immune>1.09in 49 White Blood Count 9.8 K/uL 3.1-10.7 Chlamydia/GC Yamile 06/17/2013 Chlamydia Trachomatis, Yamile Negative Negative Neisseria Gonorrhoeae, Yamile Negative Negative Please note: See Note 50 Genital Culture W/ Gram Stain 06/17/2013 Genital Culture See Note 51 Gram Stain See Note 52 Type And Screen 06/17/2013 Antibody Screen Negative Negative Patient Blood Type O Neg CBC With Manual Diff 05/28/2013 Abs Basophils 0 10^3/uL 0-0.2 Abs Eosinophils 0.1 10^3/uL 0-0.6 Abs Lymphocytes 2.7 10^3/uL 1.0-4.8 Abs Monocytes 0.8 10^3/uL 0-0.8 Abs Neutrophils 10.0 10^3/uL High 1.5-7.7 Abs Nucleated RBC 0 10^3/uL Band % 5 % 0-8 Hematocrit 38 % 35-47 Hemoglobin 13.4 g/dL 12.0-16.0 Lymphocytes % 18 % Low 25-47 Mean Corpuscular HGB Conc 36 g/dL 31-36 Mean Corpuscular Hemoglobin 33 pg High 27-31 Mean Corpuscular Volume 92 fL 80-97 Mean Platelet Volume 8 um3 7.4-10.4 Metamyelocytes % 1 % 0-2 Monocytes % 4 % 0-13 Neutrophil % 72 % 38-83 Platelet Count 249 10^3/uL 150-450 RBC Morphology Normal Normal Red Blood Count 4.08 10^6/uL 4.0-5.4 Red Cell Distribution Width 12 % 10.5-15 White Blood Count 13.6 10^3/uL High 4.8-10.8 Comp Metabolic Panel 05/28/2013 Albumin 3.8 g/dL 3.6-5.4 Albumin/Globulin Ratio 1.7 1-3 Alkaline Phosphatase 40 U/L 30-110 Alt 14 U/L 14-54 Anion Gap 5.0 mmol/L 2-11 Ast 16 U/L 12-42 BUN/Creatinine Ratio 8.6 8-20 Blood Urea Nitrogen 6 mg/dL 6-24 Calcium 9.0 mg/dL 8.1-9.9 Chloride 107 mmol/L 101-111 Co2 Carbon Dioxide 26.0 mmol/L 22-32 Creatinine 0.70 mg/dL 0.50-1.40 Egfr 132.2 >60 53 Egfr Non- 102.8 >60 Globulin 2.3 g/dL 2-4 Glucose 68 mg/dL Low 70-100 Potassium 4.4 mmol/L 3.5-5.0 Sodium 138 mmol/L 133-145 Total Bilirubin 0.9 mg/dL 0.4-1.5 Total Protein 6.1 g/dL Low 6.2-8.1 Laboratory test finding 05/04/2013 Beta HCG Quantitative 854.0 MIU/ML High 0.0-5.0 54 1 Z01.818 2 Instrument flagged sample for slide review. Less than 10% Bands seen, no other immature WBC's seen. RBC morphology essentially normal. Platelet estimate=NORMAL 3 Note: Persistent reduction for 3 months or more in an eGFR <60 mL/min/1.73 m2 defines CKD. Patients with eGFR values >/=60 mL/min/1.73 m2 may also have CKD if evidence of persistent proteinuria is present. The original MDRD equation for estimated GFR is not valid for patients less than 18 years of age. Additional information may be found at [email or web address]. 4 Values below the stated reference ranges of AST and ALT can be seen in normal populations. Clinical correlation is suggested. 5 THERAPEUTIC INR RANGE: 2.0 - 3.0 DVT, Pulmonary embolus, prophylaxis against venous thrombosis or systemic embolization in high risk patients. 2.5 - 3.5 Mechanical heart valves 6 <5.0 Negative 5.0 - 25.0 Indeterminate (Repeat testing recommended after 72 hours) >25.0 Positive Perimenopausal women can display HCG levels of up to 20 mIU/mL 7 Because ethnic data is not always readily available, this report includes an eGFR for both -Americans and non- Americans. The National Kidney Disease Education Program (NKDEP) does not endorse the use of the MDRD equation for patients that are not between the ages of 18 and 70, are , have extremes of body size, muscle mass, or nutritional status, or are non- or non-. According to the National Kidney Foundation, irrespective of diagnosis, the stage of the disease is based on the level of kidney function: Stage Description GFR(mL/min/1.73 m(2)) 1 Kidney damage with normal or decreased GFR 90 2 Kidney damage with mild decrease in GFR 60-89 3 Moderate decrease in GFR 30-59 4 Severe decrease in GFR 15-29 5 Kidney failure <15 (or dialysis) 8 [id number] 9 SEE RESULT BELOW Name: MARLYN FIELDS : [address]: Ivan Null MD Acct: [id number] Unit: [id number] AGE: 26 Location: [facility] Re05/19/17 SEX: F Status: DEP ER SPEC: [id number] MC: 05/19/17 [facility] DR: Ivan Null MD REQ: [id number] RECD: 05/20/17 STATUS: JALEESA SHARMA DR: Eleonora Barnett MD _ SOURCE: URINE SPDESC: ORDERED: Urine Culture COMMENTS: [id number] Procedure Result Reported Site Urine Culture Final 05/22/17- 0805 ML Organism 1 ESCHERICHIA COLI [place] Count >100,000 (Many) CFU/ML 1. ESCHERICHIA COLI M.I.C. RX --------- ------ Ampicillin <=2 S Cefazolin <=4 S Cefepime <=1 S Ceftriaxone <=1 S Ciprofloxacin <=0.25 S Gentamicin <=1 S Levofloxacin <=0.12 S Meropenem <=0.25 S Nitrofurantoin <=16 S Tetracycline <=1 S Pipercillin/Tazobactam <=4 S Trimethoprim/Sulfamethoxazole <=20 S Amoxicillin/Clavulanic Acid <=2 S Aztreonam <=1 S Contact the Microbiology Department for any additional antibiotic reporting. * ML - MAIN LAB ([facility]) . END OF REPORT * ML=Testing performed at Main Lab DEPARTMENT OF PATHOLOGY, [address] [place] [address] Dave Long M.D. Director [facility] # [id number] 10 [id number] 11 SEE RESULT BELOW Name: MARLYN FIELDS : [address]: Heber Arechiga MD Acct: [id number] Unit: [id number] AGE: 25 Location: [facility] Re11/05/16 SEX: F Status: DEP ER SPEC: [id number] MC: 11/05/16-1418 [facility] [address]: Zeina Urbina NP REQ: [id number] RECD: 11/05/16 STATUS: JALEESA SHARMA DR: Heber Barnett MD _ SOURCE: URINE SPDESC: ORDERED: Urine Culture COMMENTS: [id number] Procedure Result Reported Site Urine Culture Final 11/07/16- 0841 ML Organism 1 ESCHERICHIA COLI [place] Count 75-100,000 (Many) CFU/ML 1. ESCHERICHIA COLI M.I.C. RX --------- ------ Ampicillin <=2 S Cefazolin <=4 S Cefepime <=1 S Ceftriaxone <=1 S Ciprofloxacin <=0.25 S Gentamicin <=1 S Levofloxacin <=0.12 S Meropenem <=0.25 S Nitrofurantoin <=16 S Tetracycline <=1 S Pipercillin/Tazobactam <=4 S Trimethoprim/Sulfamethoxazole <=20 S Amoxicillin/Clavulanic Acid <=2 S Aztreonam <=1 S Contact the Microbiology Department for any additional antibiotic reporting. * ML - [facility] ([facility]) . END OF REPORT * ML=Testing performed at Main Lab DEPARTMENT OF PATHOLOGY, [address] [place] [address] Dave Long M.D. Director CLIA # [id number] 12 REFERENCE VALUE <4.0 (Negative) Test Performed by: [place] [address] [employer] Developer: Renee Anna II, M.D., Ph.D. 13 Negative serology. Celiac disease unlikely. However, approximately 10% of patients with celiac disease are seronegative. Also, patients who are already adhering to a gluten-free diet may be seronegative. If celiac disease is highly clinically suspected, consider HLA-DQ typing. Test Performed by: [place] [address] [employer] Developer: Renee Anna II, M.D., Ph.D. 14 SEE RESULT BELOW Name: MARLYN FIELDS : [address]: Lupe Lemon MD Acct: [id number] Unit: [id number] AGE: 25 Location: ED Re08/05/16 SEX: F Status: DEP ER SPEC: [id number] MC: 08/05/[address]: Lupe Lemon MD REQ: [id number] RECD: 08/05/16 STATUS: JALEESA SHARMA DR: Eleonora Barnett MD _ SOURCE: URINE SPDESC: ORDERED: Urine Culture Procedure Result Reported Site Urine Culture Final 08/07/16- 0838 ML No Growth (<1,000 CFU/mL) * ML - MAIN LAB ([facility]) . END OF REPORT * ML=Testing performed at Main Lab DEPARTMENT OF PATHOLOGY, [address] [place] [address] Dave Long M.D. Director [facility] # [id number] 15 Patient is On Antibiotics? YES 16 SEE RESULT BELOW Name: MARLYN FIELDS : [address]: Lupe Lemon MD Acct: [id number] Unit: [id number] AGE: 25 Location: ED Re08/05/16 SEX: F Status: DEP ER SPEC: [id number] MC: 08/06/16 [facility] [address]: Lupe Lemon MD REQ: [id number] RECD: 08/06/16 STATUS: JALEESA SHARMA DR: Eleonora Barnett MD _ SOURCE: BLOOD,VENO SPDESC: ORDERED: Blood Cult Procedure Result Reported Site Aerobic Culture Bottle Final 08/11/16- 0236 ML No Growth Day 5 Anaerobic Culture Bottle Final 08/11/16- 0236 ML No Growth Day 5 * ML - MAIN LAB ([facility]) . END OF REPORT * ML=Testing performed at Main Lab DEPARTMENT OF PATHOLOGY, [address] [place] [address] Dave Long M.D. Director [facility] # [id number] 17 [id number] 18 [id number] 19 Because ethnic data is not always readily available, this report includes an eGFR for both -Americans and non- Americans. The National Kidney Disease Education Program (NKDEP) does not endorse the use of the MDRD equation for patients that are not between the ages of 18 and 70, are , have extremes of body size, muscle mass, or nutritional status, or are non- or non-. According to the National Kidney Foundation, irrespective of diagnosis, the stage of the disease is based on the level of kidney function: Stage Description GFR(mL/min/1.73 m(2)) 1 Kidney damage with normal or decreased GFR 90 2 Kidney damage with mild decrease in GFR 60-89 3 Moderate decrease in GFR 30-59 4 Severe decrease in GFR 15-29 5 Kidney failure <15 (or dialysis) 20 ADDITIONAL INFORMATION This test was developed and its performance characteristics determined by [facility] in a manner consistent with CLIA requirements. This test has not been cleared or approved by the U.S. Food and Drug Administration. Test Performed by: [place] [address] [employer] Developer: Renee Anna II, M.D., Ph.D. 21 [id number] 22 [id number] 23 Acute inflammation: >10.00 24 Because ethnic data is not always readily available, this report includes an eGFR for both -Americans and non- Americans. The National Kidney Disease Education Program (NKDEP) does not endorse the use of the MDRD equation for patients that are not between the ages of 18 and 70, are , have extremes of body size, muscle mass, or nutritional status, or are non- or non-. According to the National Kidney Foundation, irrespective of diagnosis, the stage of the disease is based on the level of kidney function: Stage Description GFR(mL/min/1.73 m(2)) 1 Kidney damage with normal or decreased GFR 90 2 Kidney damage with mild decrease in GFR 60-89 3 Moderate decrease in GFR 30-59 4 Severe decrease in GFR 15-29 5 Kidney failure <15 (or dialysis) 25 Serologic response to B. burgdorferi infection is not detected, but cannot rule out early infection during which low or undetectable antibody levels to B. burgdorferi may be present. If clinically indicated, a new serum specimen should be submitted in 7-14 days. Test Performed by: [address] [address] [employer]: Renee Anna II, M.D., Ph.D. 26 Acute inflammation: >10.00 27 Because ethnic data is not always readily available, this report includes an eGFR for both -Americans and non- Americans. The National Kidney Disease Education Program (NKDEP) does not endorse the use of the MDRD equation for patients that are not between the ages of 18 and 70, are , have extremes of body size, muscle mass, or nutritional status, or are non- or non-. According to the National Kidney Foundation, irrespective of diagnosis, the stage of the disease is based on the level of kidney function: Stage Description GFR(mL/min/1.73 m(2)) 1 Kidney damage with normal or decreased GFR 90 2 Kidney damage with mild decrease in GFR 60-89 3 Moderate decrease in GFR 30-59 4 Severe decrease in GFR 15-29 5 Kidney failure <15 (or dialysis) 28 Verbal to [id number] by [id number] at 1206 on 08/19/14.~Results read back accurately. 29 RUN DATE: 08/19/14 [facility] LAB LIVE PAGE 1 RUN TIME: [address] [place] [id number] Specimen Inquiry ----- Name: MARLYN FIELDS : [address]: Felecia Siddiqui MD Acct: [id number] Unit: [id number] AGE: 23 Location: [facility] Re08/18/14 SEX: F Status: DEP ER ----- SPEC: [id number] MC: 08/18/14 [facility] [address]: Felecia Siddiqui MD REQ: [id number] RECD: 08/19/14 STATUS: COMP OT DR: Jena Holden MD _ SOURCE: [facility]: ORDERED: Rapid Flu A B COMMENTS: Verbal to [id number] by [id number] at 1206 on 08/19/14. Results read back accurately. ----- Procedure Result Verified Site ----- Rapid Influenza A B Antigen Final 08/19/14-1207 ML Organism 1 POSITIVE INFLUENZA A Organism 2 Negative Influenza B Antigen testing by enzyme immunoassay. Cell culture testing can be performed to confirm negative test results and to assist in detecting other viruses that can produce similar clinical symptoms. Please notify Microbiology Lab if further testing is desired. ----- END OF REPORT * ML=Testing performed at Main Lab DEPARTMENT OF PATHOLOGY, [address] [place] [address] Dave Long M.D. Director [facility] # [id number] 30 PENDING; TEST PERFORMED ON MONDAYS AND THURSDAYS 31 PENDING; TEST PERFORMED ON MONDAYS AND THURSDAYS 32 NO GROUP B STREPTOCOCCI ISOLATED 33 Acceptable specimens for this test are male urethral swab, endocervical swab and liquid based pap specimens, vaginal swabs in APTIMA transports and first void urine. See online Directory of Services for test number for rectal and pharyngeal specimens. Performed at: RN - [facility] [address] [id number] [employer] Stamper: Cinthia Bekcer MD, Phone: [phone] 34 POST GLUCOLA 35 NO SPECIMEN RECEIVED 36 NO SPECIMEN RECEIVED 37 [phone] 10/19/13 LAB.TOW NEED MANUAL SCREEN 38 [facility] Specimen testing referred to [facility]. 39 TEST CANCELLED BY IG. SPEC HEMOLYZED. NEW SPEC SENT 08/25/13 40 COLONY COUNT ! 50,000 - 60,000 CFU/ml Organism 1 ! URETHRAL MELA 41 @Sample frozen by [id number] at 1533 on 07/13/13. 42 No reportable results 43 This high-risk HPV test detects thirteen high-risk types (16/18/31/33/35/39/45/51/52/56/58/59/68) without differentiation. Performed at: - [facility] [address] [id number] [employer] Stamper: Cinthia Becker MD, Phone: [phone] 44 HBsAg not detected; does not exclude the possibility of exposure to or early acute infections with HBV. 45 The Centers for Disease Control and Prevention states blood lead levels less than 10 ug/dL in children have been associated with numerous adverse health effects. [facility] Guidelines: Blood lead levels in the range 5-9 ug/dL have been associated with adverse health effects in children aged 6 years and younger. 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 PAP ACCESSI QUESTIONNAIRE 08/27 PERTINENT CLINICAL HISTORY FOR PAP (ABALONE PROCESSOR) CYTOLOGY (Check all that apply): ? Y Post ? N Menopause? N LMP date: 04/09/13 If patient had related surgical procedure: Related Therapy: Significant Clinical History: ===== DISCLAIMER: The Pap smear is a screening test and not a diagnostic procedure. False negative and false positive results can and do occur for a number of reasons. Regular screening provides an aid in detecting treatable cervical abnormalities, but should not be used as the only means for detecting cervical dysplasia and carcinoma. ----- Signed RENEE RODGERS MD 06/22/13 1554 ----- 48 COLONY COUNT ! 10,000 - 20,000 CFU/ml Organism 1 ! URETHRAL MELA 49 Nonimmune <0.91 Equivocal 0.91 - 1.09 Immune >1.09 Performed at: [facility] [employer] [employer] [id number] [employer] Stamper: Cinthia Becker MD, Phone: [phone] 50 Acceptable specimens for this test are male urethral swab, endocervical swab and liquid based pap specimens, vaginal swabs in APTIMA transports and first void urine. See online [employer] Services for test number for rectal and pharyngeal specimens. Performed at: [facility] [employer] [employer] [id number] [employer] Stamper: Cinthia Becker MD, Phone: [phone] 51 GENITAL MELA 52 GRAM STAIN ! GRAM STAIN INDICATES NORMAL GENITAL MELA ! MANY GR POS. BACILLI SUGGESTIVE OF LACTOBACILLUS SP. ! FEW GRAM VARIABLE COCCOBACILLI ! VERY FEW GRAM POS BACILLI SUGGESTIVE OF CORYNEBACTERIA 53 Because ethnic data is not always readily available, this report includes an eGFR for both -Americans and non- Americans. The National Kidney Disease Education Program (NKDEP) does not endorse the use of the MDRD equation for patients that are not between the ages of 18 and 70, are , have extremes of body size, muscle mass, or nutritional status, or are non- or non-. According to the National Kidney Foundation, irrespective of diagnosis, the stage of the disease is based on the level of kidney function: Stage Description GFR(mL/min/1.73 m(2)) 1 Kidney damage with normal or decreased GFR 90 2 Kidney damage with mild decrease in GFR 60- 89 3 Moderate decrease in GFR 30-59 4 Severe decrease in GFR 15-29 5 Kidney failure <15 (or dialysis) 54 Males: < 5.0 miu/ml Non females < 5.0 miu/ml Approx gestational age approx HCG range 0-1 week < 5.0-50 1-2 weeks 50-500 2-3 weeks 100-5000 3-4 weeks 500-10,000 1-2 months 10,000-200,000 2-3 months 15,000-100,000 Please note: The intended use of this assay is the quantitative determination of HCG in human serum or plasma for the early detection of . These assays should not be used to diagnose any condition unrelated to . If an HCG level is inconsistent with, or unsupported by, clinical evidence, results should be confirmed by an alternate HCG method. Procedures Date CPT Code Description Status 05/22/2018 26436 EKG-Tracing And Report Completed 01/05/2014 98967 Anesthesia,Neuraxial Labor Completed Encounters Type Date Location Provider CPT E/M Dx Office Visit 08/08/2016 10:30a Family Medicine Eleonora Barnett M.D. 24444 R19.7 R11.2 Office Visit 07/10/2015 4:45p [place] [address] M79.1 Plan of Care Future Appointment(s):07/07/2018 9:15 am - Domi Ly PA at [facility]
--- OUTSIDE RECORDS SUMMARY | 2018-06-02 17:01 | XMS REPORT ---
:1990 External Reference #:[id number] Author Organization [facility] Address [address], [address] [place] [address] Phone [phone] Care Team Providers Name Role Phone Eleonora Barnett M.D. 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 Primary Care Physician Unavailable Payers Type Date Identification Numbers Payment Provider Subscriber Commercial Policy Number: [id number] Jean Claudeus Marlyn Mayfield PayID: [id number] [address] [address] [place] [address] Problems Date Description Provider Status Onset: 10/04/2011 [...] Form Strength Qnty SIG Indications Ordering Provider Tri-Sprintec 11/20/ Active Tablets 0.18/0.215 28tabs 1 by mouth Mynor, 2015 /0.25 every day MD Shanel mg-35 mcg Ra Aspirin 00/ Active Tablets 325mg Unknown 0000 Oxycodone-Aceta 0000/ Active Tablets 5-325mg Unknown minophen 0000 Ondansetron 08/08/ Hx Tablets 4mg 15tabs 1 by mouth R11.2 Ericka, 2016 - Dispers every Eleonora, 05/04/ alexa dawn M.D. 2018 needed Ortho 07/20/ Hx Tablets 0.18/0.215 28tabs 1 by mouth Tammy Holden-Cyclen Lo 2014 - /0.25 every day Jena 11/20/ mg-25 mcg MD 2015 Tri-Sprintec 12/22/ Hx Tablets 0.18/0.215 28tabs 1 by mouth Adina, 2014 - /0.25 every day Jena 07/20/ mg-35 mcg MD 2014 Nortriptyline 10/18/ Hx Capsules 10mg 60caps 1-2 cap by ANTONIO Holden 2015 - mouth Jena 07/10/ every day MD 2015 every night Fluconazole 10/17/ Hx Tablets 150mg 1tabs 1 by mouth Adina, 2014 - every day Jena 07/10/ x 1 MD 2014 Tri-Sprintec 01/13/ Hx Tablets 28tabs 1 by mouth Adina, 2013 - every day Jena 12/22/ MD 2015 Ibuprofen 01/06/ Hx Tablets 600mg 50tabs one every Adina, 2014 - 4 hours by Jena 08/08/ mouth as MD 2016 needed Triamcinolone 07/13/ Hx Cream 0.1% 30unit apply Adina Acetonide 2012 - [facility] Jena 08/08/ bid MD 2015 Immunizations CPT Code Status Date Vaccine Lot # [id number] Given 12/14/2013 Tdap injection [id number] Given 12/20/2011 Tdap injection Vital Signs Date Vital Result Comment 05/22/2018 BP Systolic Sitting Left Arm 120 mmHg BP Diastolic Sitting Left Arm 74 mmHg Body Temperature 98.3 F Heart Rate 76 /min Height 64 inches 5'4" Weight 163.25 lb BMI (Body Mass Index) 28.0 kg/m2 BSA (Body Surface Area) 1.79 m2 [employer] body weight in kilograms 54 O2 % BldC Oximetry 98 % 08/08/2016 BP Systolic 104 mmHg BP Diastolic 68 mmHg Body Temperature 98.7 F Heart Rate 80 /min Respiratory Rate 18 /min Height 64 inches 5'4" Weight 155.00 lb BMI (Body Mass Index) 26.6 kg/m2 BSA (Body Surface Area) 1.76 m2 [employer] body weight in kilograms 54 Last Menstrual Period [id number] O2 % BldC Oximetry 99 % 07/10/2015 [...] 6.5-7.5 Ua Blood trace Negative Ua Specific [place] 1.010 1.010-1.030 Ua Ketones negative Negative Ua [...] 1 Lymph % 26.3 % 20.0-42.0 1 [place] % 6.4 % 4.3-13.2 1 Eo% 1.4 % 0.0-6.6 1 Bas% 0.3 % 0.0-1.1 1 Neut# 7.70 K/uL High 1.8-7.0 1 Lymph # 3.08 K/uL 1.0-4.0 1 [place] # 0.75 K/uL 0.3-0.9 1 Eos # [...] % 0 Laboratory Studies 08/05/2016 Urine Specific [place] 1.008 Low 1.010- 1.030 Urine pH 6.0 [...] 30.8-34.3 Mean Platelet Volume 9.8 fL 8.9-12.4 [place] # 0.82 K/uL 0.3-0.9 [place] % 8.3 % 4.3-13.2 Neut# 6.54 K/uL [...] 5 Kidney failure <15 (or dialysis) 8 [id number] 9 SEE RESULT BELOW Name: MARLYN FIELDS : [address]: Ivan Null MD Acct: [id number] Unit: [id number] AGE: 26 Location: [facility] Re05/19/17 SEX: F Status: DEP ER SPEC: [id number] MC: 05/19/[address] [facility] [address]: Ivan Null MD REQ: [id number] RECD: 05/20/17 STATUS: JALEESA SHARMA DR: Eleonora Barnett MD _ SOURCE: URINE SPDESC: ORDERED: Urine Culture COMMENTS: [id number] Procedure Result Reported Site Urine Culture Final 05/22/17- 804 ML Organism 1 ESCHERICHIA COLI [place] Count >100,000 (Many) CFU/ML 1. ESCHERICHIA COLI [...] antibiotic reporting. * ML - MAIN LAB ([facility]) . END OF REPORT * ML=Testing performed at Main Lab DEPARTMENT OF PATHOLOGY, [address] [place] [address] Dave Long M.D. Director [facility] # [id number] 10 [id number] 11 SEE RESULT BELOW Name: MARLYN FIELDS : [address]: Heber Arechiga MD Acct: [id number] Unit: [id number] AGE: 25 Location: [facility] Re11/05/16 SEX: F Status: DEP ER SPEC: [id number] MC: 11/05/[address] [facility] [address]: Zeina Urbina NP REQ: [id number] RECD: 11/05/16 STATUS: JALEESA SHARMA DR: Heber Barnett MD _ SOURCE: URINE [facility]: ORDERED: Urine Culture COMMENTS: [id number] Procedure Result Reported Site Urine Culture Final 11/07/16- 08 ML Organism 1 ESCHERICHIA COLI [place] Count 75-100,000 (Many) CFU/ML 1. ESCHERICHIA COLI [...] any additional antibiotic reporting. * ML - [facility] ([facility]) . END OF REPORT * ML=Testing performed at Main Lab DEPARTMENT OF PATHOLOGY, [address] [place] [address] Dave Long M.D. Director [facility] # [id number] 12 REFERENCE VALUE <4.0 (Negative) Test Performed by: [place] [address] Home Comfort Advisor: Renee Anna II, M.D., Ph.D. 13 Negative serology. Celiac disease unlikely. However, approximately 10% of patients with celiac disease are seronegative. Also, patients who are already adhering to a gluten-free diet may be seronegative. If celiac disease is highly clinically suspected, consider HLA-DQ typing. Test Performed by: [place] [address] Home Comfort Advisor: Renee Anna II, M.D., Ph.D. 14 SEE RESULT BELOW Name: MARLYN FIELDS : [address]: Lupe Lemon MD Acct: [id number] Unit: [id number] AGE: 25 Location: ED Re08/05/16 SEX: F Status: DEP ER SPEC: [id number] MC: 08/05/[address] [facility] [address]: Lupe Lemon MD REQ: [id number] RECD: 08/05/16 STATUS: JALEESA SHARMA DR: Eleonora Barnett MD _ SOURCE: URINE [facility]: ORDERED: Urine Culture Procedure Result Reported Site Urine Culture Final 08/07/1638 ML No Growth (<1,000 CFU/mL) * ML - MAIN LAB ([facility]) . END OF REPORT * ML=Testing performed at Main Lab DEPARTMENT OF PATHOLOGY, [address] [place] [address] Dave Long M.D. Director [facility] # [id number] 15 Patient is On Antibiotics? YES 16 SEE RESULT BELOW Name: MARLYN FIELDS : [address]: Lupe Lemon MD Acct: [id number] Unit: [id number] AGE: 25 Location: ED Re08/05/16 SEX: F Status: DEP ER SPEC: [id number] MC: 08/06/[address] [facility] [address]: Lupe Lemon MD REQ: [id number] RECD: 08/06/16 STATUS: JALEESA SHARMA DR: Eleonora Barnett MD _ SOURCE: BLOOD,VENO SPDESC: ORDERED: Blood Cult Procedure Result Reported Site Aerobic Culture Bottle Final 08/11/16- 0236 ML No Growth Day 5 Anaerobic Culture Bottle Final 08/11/16- 0236 ML No Growth Day 5 * ML - [facility] ([facility]) . END OF REPORT * ML=Testing performed at Main Lab DEPARTMENT OF PATHOLOGY, [address] [place] [address] Dave Long M.D. Director [facility] # [id number] 17 [id number] 18 [id number] 19 Because ethnic data is not always [...] developed and its performance characteristics determined by [facility] in a manner consistent with CLIA requirements. This test has not been cleared or approved by the U.S. Food and Drug Administration. Test Performed by: [address] [address] Home Comfort Advisor: Renee Anna II, M.D., Ph.D. 21 [id number] 22 [id number] 23 Acute inflammation: >10.00 24 Because ethnic [...] submitted in 7-14 days. Test Performed by: [address] [address] Home Comfort Advisor: Renee Anna II, M.D., Ph.D. 26 Acute [...] failure <15 (or dialysis) 28 Verbal to [id number] by [id number] at 1206 on 08/19/14.~Results read back accurately. 29 RUN DATE: 08/19/14 [facility] LAB LIVE PAGE 1 RUN TIME: [address] [place] [address] Specimen Inquiry ----- Name: KEYSHA FIELDSIE : [address]: Felecia Siddiqui MD Acct: [id number] Unit: [id number] AGE: 23 Location: [facility] Re08/18/14 SEX: F Status: DEP ER ----- SPEC: [id number] MC: 08/18/[address] [facility] [address]: Felecia Siddiqui MD REQ: [id number] RECD: 08/19/14 STATUS: JALEESA SHARMA DR: Jena Holden MD _ SOURCE: [facility]: ORDERED: Rapid Flu A B COMMENTS: Verbal to [id number] by [email or web address] at 1206 on 08/19/14. Results read back [...] performed at Main Lab DEPARTMENT OF PATHOLOGY, [address] [place] [address] Dave Long M.D. Director [facility] # [id number] 30 PENDING; TEST PERFORMED ON MONDAYS AND THURSDAYS 31 PENDING; TEST PERFORMED ON MONDAYS AND THURSDAYS 32 NO GROUP B STREPTOCOCCI ISOLATED 33 Acceptable specimens for this test are male urethral swab, endocervical swab and liquid based pap specimens, vaginal swabs in APTIMA transports and first void urine. See online Directory of Services for test number for rectal and pharyngeal specimens. Performed at: - [facility] [id number] Roller Hand: Cinthia Becker MD, Phone: [phone] 34 POST GLUCOLA 35 NO SPECIMEN RECEIVED 36 NO SPECIMEN RECEIVED 37 110.1756 10/19/13 LAB.TOW NEED MANUAL SCREEN 38 [facility] Specimen testing referred to [facility]. 39 TEST CANCELLED BY IG. SPEC HEMOLYZED. NEW SPEC SENT 08/25/13 40 COLONY COUNT ! 50,000 - 60,000 CFU/ml Organism 1 ! URETHRAL MELA 41 @Sample frozen by [id number] at 1533 on 07/13/13. 42 No reportable results 43 This high-risk HPV test detects thirteen high-risk types (16/18/31/33/35/39/45/51/52/56/58/59/68) without differentiation. Performed at: RN - [facility] [address] [id number] Roller Hand: Cinthia Becker MD, Phone: [phone] 44 HBsAg not detected; does not exclude the possibility of exposure to or early acute infections with HBV. 45 The Centers for Disease Control and Prevention states blood lead levels less than 10 ug/dL in children have been associated with numerous adverse health effects. [facility] Guidelines: Blood lead levels in the range 5-9 ug/dL have been associated with adverse health effects in children aged 6 years and younger. Environmental Exposure: WHO Recommendation <20 Occupational Exposure: OSHA Lead Std 40 Detection Limit=1 46 PENDING; TEST PERFORMED ON MONDAYS AND THURSDAYS 47 CYTOLOGY SCREENER - SENIOR SQL SERVER DEVELOPER @ 09/28 Screened by: Sierra PARKINSON(ASCP) PAP: FINAL REPORT SPECIMEN ADEQUACY: SPECIMEN SATISFACTORY FOR INTERPRETATION SAMPLE VIAL SENT OUT FOR HPV TESTING AT CLINICIAN'S REQUEST INTERPRETATION: ATYPICAL SQUAMOUS CELLS OF UNDETERMINED SIGNIFICANCE COMMENT: HIGH RISK HPV TEST (1031:[id number] ): NEGATIVE THINPREP PREPARED PAP SLIDE # Prepared in the Cytology laboratory from the ThinPrep sample is 1 ThinPrep smear. PAP ACCESSI QUESTIONNAIRE 08/27 PERTINENT CLINICAL HISTORY FOR PAP (SENIOR SQL SERVER DEVELOPER) CYTOLOGY (Check all that apply): ? Y [...] 0.91 - 1.09 Immune >1.09 Performed at: [facility] [id number] Roller Hand: Cinthia Becker MD, Phone: [phone] 50 Acceptable specimens for this test are male urethral swab, endocervical swab and liquid based pap specimens, vaginal swabs in APTIMA transports and first void urine. See online Directory of Services for test number for rectal and pharyngeal specimens. Performed at: [facility] [id number] Roller Hand: Cinthia Becker MD, Phone: [phone] GENITAL MELA 52 GRAM STAIN ! [...] Procedures Date CPT Code Description Status 05/22/2018 60339 EKG-Tracing And Report Completed 01/05/2014 68183 Anesthesia,Neuraxial Labor Completed Encounters Type Date Location Provider CPT E/M Dx Office Visit 08/08/2016 10:30a Family Medicine Eleonora Barnett M.D. 58492 R19.7 R11.2 Office Visit 07/10/2015 4:45p [facility] [address] M79.1 Plan of Care Future Appointment(s):07/07/2018 9:15 am - Domi Ly PA at [facility]
--- OUTSIDE RECORDS SUMMARY | 2018-06-02 17:01 | XMS REPORT ---
:1990 External Reference #:[id number] Author Organization [facility] Address [address] [place] [address] Phone [phone] Care Team Providers Name Role Phone Margarito Boyd MD Care Team Information Night Assistant Unavailable Eleonora Barnett MD Primary Care Physician Unavailable Payers Type Date Identification Numbers Payment Provider Subscriber Commercial Policy Number: [id number] [employer] Danyelle Mayfield PayID: [id number] [address] [address] [place] [address] Problems Date Description Provider Status Onset: 11/18/2017 Dog bite Caroline Shearer MD Active Onset: 11/18/2017 Oth specific joint derangements of left Caroline Shearer MD Active hip, NEC Onset: 04/16/2018 Trochanteric bursitis Caroline Shearer MD Active Family History Date Family Member(s) Problem(s) Comments General Diabetes General Hypertension General Rheumatoid Arthritis Father Unknown Mother Alive And Well Social History Type Date Description Comments Marital Status Lives With Lives With Children 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 Vital Signs Date Vital Result Comment 05/13/2018 Height 64 inches 5'4" Weight 158.00 lb Heart Rate 72 /min BP Systolic Sitting 124 mmHg BP Diastolic Sitting 78 mmHg Respiratory Rate 16 /min Body Temperature 97.9 F Pain Level 7 BMI (Body Mass Index) 27.1 kg/m2 04/16/2018 Height 64 inches 5'4" Heart Rate [...] Procedures Date CPT Code Description Status 01/28/2018 46311 Arthroscopy,Hip,Labral Repair Completed 01/28/2018 31019 Arthroscopy,Hip,Labral Repair Completed 01/28/2018 59483 Arthroscopy,Hip,W/Femoroplasty,Treatment Of Cam Lesion Completed 01/28/2018 97298 Arthroscopy,Hip,W/Femoroplasty,Treatment Of Cam Lesion Completed 10/14/2017 11677 Radiologic Exam Hip Unilateral With Pelvis 2-3 Views Completed Encounters Type Date Location Provider CPT E/M Dx Office Visit 01/08/2018 10:15a [facility] [place] [address] M24.852 [facility] F17.210 Office Visit 12/18/2017 10:30a [facility] [place] [address] M24.852 [facility] M25.852 Office Visit 11/27/2017 2:00p [facility] [place] [address] M24.852 [facility] Office Visit 11/18/2017 9:30a [facility] [place] [address] M24.852 [facility] W54.0xxA M25.852 Office Visit 10/29/2017 8:45a [facility] [place] [address] M25.552 Director Of Restaurant Operations AT [place] S73.192A Office Visit 10/14/2017 2:30p [facility] [place] [address] M25.552 Director Of Restaurant Operations AT [place] M22.2x2 Plan of Care Future Appointment(s):06/02/2018 8:45 am - Caroline Shearer MD at [facility]05/13/2018 - Maryjane Mccallum M.D.M25.552 Pain in left hipNew Labs:CBC Auto DiffC Reactive ProteinErythrocyte Sed RateFollow up:Follow up: dr shearer as vcmjmrldhV35.62 Trochanteric bursitis, left hipM24.852 Oth specific joint derangements of left hip, NEC
[2018-06-02 17:14] VITALS: BP 120/74
--- NOTE | 2018-06-02 17:25 | UC ---
UC General HPI - HPI Summary HPI Summary: Patient presents to urgent care reporting 36 hours of right facial paresthesias. Patient has a complex medical history. Approximately in January of this year patient had a left labrum repair in her hip. Patient states she was doing well. Last week patient was evaluated urgent care with left leg pain. Patient was diagnosed with a left femoral dissection. Last , 05/28/18, patient was treated by vascular surgery [facility]. Patient states they're unable to access through angioplasties the patient an open incision. Patient states she was discharged on Friday at her request. Patient states she's had ongoing swelling and pain since this time. Patient states yesterday she spoke to the vascular surgery office because of pain and she was on was out of her oxycodone. Patient was instructed to seek care for recheck due to pain. Patient did not do this. Patient states yesterday she noticed some paresthesias of her right lower face. She called the vascular surgery office today who instructed her to come the emergency department. Patient states she spent 2 hours in the waiting room and [facility] so she left and came here. Patient denies chest pain or shortness of breath. Patient denies paresthesias or weakness to her arms. Patient reports ongoing discomfort and edema to her left leg. Patient denies headache or vision changes. No ear pain no sinus pain. No difficulty with speech. Patient states she is tired and feeling overwhelmed. Patient adamantly tearful. Patient states her last oxycodone was this morning and she has one or 2 tablets left at home. Patient did not call her vascular surgeon when she left the emergency department [facility]. Patient denies possibility of . Patient's medications reviewed this visit. - History of Current Complaint Chief Complaint: UCGeneralIllness Stated Complaint: PERSONAL Time Seen by Provider: 06/02/18 17:24 Hx Obtained From: Patient, Medical Records Hx Last Menstrual Period: 05/06/18 Onset/Duration: Sudden Onset Onset Severity: Moderate Current Severity: Moderate Pain Intensity: 7 Associated Signs & Symptoms: Positive: Anticoagulation Therapy - xarelto, ASA - Allergy/Home Medications Allergies/Adverse Reactions: Allergies Allergy/AdvReac Type Severity Reaction Status Date / Time hydrocodone [From Vicodin] Allergy Difficulty Verified 06/02/18 17:09 Breathing Home Medications: Home Medications Rivaroxaban TAB(*) [Xarelto 15 mg(*)] 15 mg PO DAILY 06/02/18 [History Confirmed 06/02/18] PMH/Surg Hx/FS Hx/Imm Hx Previously Healthy: Yes - Surgical History Surgical History: Yes Surgery Procedure, Year, and Place: Appendectomy, ~2010, [facility]. LEFT HIP SURGERY , 01/28/18 - ARTHROSCOPIC LABRAL REPAIR & IMPINGEMENT-. left femoral artery repair 05/28/18 - Family History Known Family History: Positive: None - no reports of past medical history in family Negative: Cardiac Disease, Hypertension, Diabetes Family History: family hx of thyroid disorder - Social History Lives: With Family Alcohol Use: Rare Alcohol Amount: "special occasions like weddings" Substance Use Type: None Smoking Status (MU): Heavy Every Day Tobacco Smoker Type: Cigarettes Amount Used/How Often: 1/2 PPD X 10 YEARS Length of Time of Smoking/Using Tobacco: On and Off for 11 Years Have You Smoked in the Last Year: Yes - Immunization History Most Recent Influenza Vaccination: Not the 2015/2016 Season Review of Systems Constitutional: Negative Skin: Bruising - left groin surgical Cardiovascular: Other - LLE edema Neurovascular: Other - right facial paresthesia All Other Systems Reviewed And Are Negative: Yes Physical Exam - Summary Physical Exam Summary: Vital Signs Reviewed: Yes A+Ox3, tearful Eyes: Conjunctiva Clear, EVANS. EOM intact and full ENT: Hearing grossly normal TM x 2 clear, mmoist, uvula midline, no exudate, no erythema Neck: Positive: Supple Respiratory: Positive: No respiratory distress, No accessory muscle use + CTA throughout no w/r Cardiovascular: RRR nl s1, s2 no m/r CBT <2 sec 2+ edema LLE warm 1+ PT abd soft + BS nt/nd no guarding, no distension Musculoskeletal Exam: using walker discomfort LLE Neurological: Positive: Alert, decreased sensation V2/V3 distribution. No facial weakness full ROM upper strength + fnf Psychological: Positive: Normal Response To Family Skin: Positive: left groin surgical wound c/t/i no fluctuance, drainage, odor, erythema, induration Triage Information Reviewed: Yes Vital Signs: Initial Vital Signs Temp 99.3 F 06/02/18 17:02 Pulse 88 06/02/18 17:02 Resp 16 06/02/18 17:02 BP 120/74 06/02/18 17:02 Pulse Ox 100 06/02/18 17:02 Course/Dx - Course Course Of Treatment: Patient with complex medical history. Patient with recent vascular procedure, open, femoral artery dissection repair. Pt with ongoing pain and swelling of LLE. Pt states has 1 oxycodone left. pt also resport right sided facial paresthesa V2/V3 dermatome symmetric. d/w pt at length - recommend pt to ED for further evaluation and treatment. Pt resistant but state s understanding and agreement with plan. Pt to go by POV with aunt. report to Dr. oglesby in ED [facility] - Differential Dx - Multi-Symptom Provider Diagnoses: lle pain. lle edema. right facial paresthesia Discharge - Sign-Out/Discharge Documenting (check all that apply): Patient Departure All imaging exams completed and their final reports reviewed: No Studies - Discharge Plan Condition: Stable Disposition: HOME-RECOMMEND TO ED Patient Education Materials: Paresthesia (ED), Leg Pain (ED) Referrals: Domi Ly PA [Primary Care Provider] - Additional Instructions: The doctor that evaluated you today thinks that you need additional testing that can be completed the emergency department. It is recommended that you go directly to emergency department for further evaluation. This evaluation may include blood work or imaging. This testing will be directed and decided by the provider that evaluate you at the emergency department. If pain becomes worse, you feel lightheaded, you have uncontrolled vomiting, or you have any other concerns while you are being driven to emergency department as recommended to pullover and contact 911. - Billing Disposition and Condition Condition: STABLE Disposition: Home-Recommend to ED
== END 2018-06-02 18:00 | disposition home health service (06) ==
LOC: UCCORT 16:26
DX: M79.605 Pain in left leg (principal); R60.0 Localized edema; R20.2 Paresthesia of skin; F17.210 Nicotine dependence, cigarettes, uncomplicated; Z88.5 Allergy status to narcotic agent; Z79.82 Long term (current) use of aspirin; Z79.01 Long term (current) use of anticoagulants
CPT/HCPCS: 99212; G0463

== ENCOUNTER 2018-06-10 08:25 | Emergency (ER) | payer BC ==
--- OUTSIDE RECORDS SUMMARY | 2018-06-10 08:40 | XMS REPORT ---
:1990 External Reference #:[id number] Author Organization [facility] 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 Unavailable Domi Ly PA Primary Care Physician Unavailable Payers Type Date Identification Numbers Payment Provider Subscriber Commercial Policy Number: [id number] Jean Claudeus Marlyn Mayfield PayID: [id number] [address] [address] [place] [address] Problems Date Description Provider Status Onset: 10/04/2011 Anxiety state Myrna Marquez FNP Active Onset: 06/18/2011 Headache Myrna Marquez FNP Active Onset: 06/01/2018 Peripheral arterial occlusive disease Domi Ly PA Active Note: L [place] artery Social History Type Date Description Comments Lives With Diet Healthy, Well Balanced ETOH Use Rarely consumes alcohol Smoking Light tobacco smoker (10 or fewer cigarettes/day) Allergies, Adverse Reactions, Alerts Date Description Reaction Status Severity Comments 06/14/2011 Vicodin active Medications Medication Date Status Form Strength Qnty SIG Indications Ordering Provider Oxycodone-Aceta 05/28/ Active Tablets 5-325mg 10tabs 1-2 tab by marianne Lowe 2017 mouth MD Shanel every 6 hours as needed Ref # [id number] Xarelto 05/28/ Active Tablets 20mg take 1 2017 tablet by mouth daily with food for irregular heartbeat Xanax 05/26/ Active Tablets 0.25mg 6tabs take 1 Terry Lowe tablet by MD Shanel mouth up to 3 times per day as needed for anxiety. reference #: [id number] Ra Aspirin 05/12/ Active Tablets 325mg 90tabs 1 tab by Mynor 2017 mouth MD Shanel every day Tri-Sprintec 11/20/ Active Tablets 0.18/0.215 28tabs 1 by mouth Mynor, 2015 /0.25 every day MD Shanel mg-35 mcg Ondansetron 08/08/ Hx Tablets 4mg 15tabs 1 by mouth R11.2 Ericka 2016 - Dispers every 4 Eleoonra, 05/04/ hour as M.D. 2017 needed Ortho 07/20/ Hx Tablets 0.18/0.215 28tabs 1 by mouth Jane HoldenCyclen Cheryl 2014 - /0.25 every day Jena 11/20/ [...] 01/13/ Hx Tablets 28tabs 1 by mouth Adina 2013 - every day Jena 12/22/ MD 2014 Ibuprofen 01/06/ Hx Tablets 600mg 50tabs one every Adina 2013 - 4 hours by Jena 08/08/ mouth MD nereyda 2015 needed Triamcinolone 07/13/ Hx Cream 0.1% 30unit apply [facility]/ MD claire 2015 Immunizations CPT Code Status Date Vaccine Lot # [id number] Given 12/14/2013 Tdap injection [id number] Given 12/20/2011 Tdap injection Vital Signs Date Vital Result Comment 06/09/2018 BP Systolic Sitting Left Arm 140 mmHg BP Diastolic Sitting Left Arm 72 mmHg Body Temperature 97.5 F Heart Rate 105 /min Weight 160.50 lb O2 % BldC Oximetry 97 % 05/22/2018 BP Systolic Sitting Left Arm 120 mmHg BP Diastolic Sitting Left Arm 74 mmHg Body Temperature 98.3 F Heart Rate 76 /min Height 64 inches 5'4" Weight 163.25 lb BMI (Body Mass Index) 28.0 kg/m2 BSA (Body Surface Area) 1.79 m2 Naturita body weight in kilograms 54 O2 % BldC Oximetry 98 % 08/08/2016 BP Systolic 104 mmHg BP Diastolic 68 mmHg Body Temperature 98.7 F Heart Rate 80 /min Respiratory Rate 18 /min Height 64 inches 5'4" Weight 155.00 lb BMI (Body Mass Index) 26.6 kg/m2 BSA (Body Surface Area) 1.76 m2 Naturita body weight in kilograms 54 Last Menstrual Period [id number] O2 % BldC Oximetry 99 % 07/10/2015 [...] Test Date Test Result H/L Range Note CBC 06/02/2018 White Blood Count 11.8 K/uL High 3.1-10.7 1 Red Blood Count 3.46 M/uL Low 3.90-5.40 1 Hemoglobin 10.9 gm/dL Low 11.6-15.8 1 Hematocrit 32.3 % Low 36.0-46.1 1 Mean Cell Volume 93.4 fl 80.9-99.0 1 Mean Corpuscular HGB 31.5 pg 25.9-32.7 1 Mean Corpuscular HGB Conc 33.7 g/dL 30.8-34.3 1 Platelet Count 336 K/uL 155-360 1 Red Cell Distri Width %CV 12.2 % 11.7-14.4 1 Mean Platelet Volume 9.7 fL 8.9-12.4 1 Comprehensive Metabolic Panel 06/02/2018 Glucose 85 mg/dL 74-106 1 BUN 6 mg/dL Low 7-18 1 Creatinine 0.7 mg/dL 0.6-1.3 1 Glom Filtration Rate, Estimate >60 mL/min >60 1 If >60 mL/min >60 1, 2 BUN/Creat 8.5 ratio 1 Sodium 140 mmol/L 136-145 1 Potassium 3.6 mmol/L 3.5-5.1 1 Chloride 104 mmol/L 98-107 1 Carbon Dioxide 28 mmol/L 21-32 1 Anion Gap 8 mEq/L 8-16 1 Calcium 8.6 mg/dL 8.5-10.1 1 Total Protein 7.7 g/dL 6.4-8.2 1 Albumin 3.1 g/dL Low 3.4-5.0 1 Globulin 4.6 g/dL High 1.9-4.3 1 Alb/Glob 0.7 ratio 1 Bilirubin,Total 0.3 mg/dL 0.2-1.0 1 Sgot/Ast 16 U/L 15-37 1 SGPT/Alt 28 U/L 12-78 1 Alkaline Phosphatase 91 U/L 45-117 1 Urine Dipstick 05/22/2018 Ua Color yellow Yellow Ua Clarity clear Clear Ua Leuko negative Negative Ua Nitrite negative Negative Ua Urobilinogen 0.2 0.2 - 1.0 E.U./dL Ua Protein negative Negative Ua PH 6.5 6.5-7.5 Ua Blood trace Negative Ua Specific [place] 1.010 1.010-1.030 Ua Ketones negative Negative Ua Bilirubin negative Negative Ua Glucose negative Negative CBC W/Automated Diff 05/22/2018 White Blood Count 11.7 K/uL High 3.1-10.7 3 Red Blood Count 4.40 M/uL 3.90-5.40 3 Hemoglobin 14.0 gm/dL 11.6-15.8 3 Hematocrit 40.4 % 36.0-46.1 3 Mean Cell Volume 91.8 fl 80.9-99.0 3 Mean Corpuscular HGB 31.8 pg 25.9-32.7 3 Mean Corpuscular HGB Conc 34.7 g/dL High 30.8-34.3 3 Platelet Count 286 K/uL 155-360 3 Red Cell Distri Width SD 39.8 fl 3-47 3 Red Cell Distri Width %CV 12.3 % 11.7-14.4 3 Mean Platelet Volume 10.3 fL 8.9-12.4 3 Neut% 65.6 % 40.4-72.8 3 Lymph % 26.3 % 20.0-42.0 3 Green % 6.4 % 4.3-13.2 3 Eo% 1.4 % 0.0-6.6 3 Bas% 0.3 % 0.0-1.1 3 Neut# 7.70 K/uL High 1.8-7.0 3 Lymph # 3.08 K/uL 1.0-4.0 3 Green # 0.75 K/uL 0.3-0.9 3 Eos # 0.17 K/uL 0.0-0.5 3 Baso # 0.03 K/uL 0.0-0.1 3 Anticoagulant Therapy? NO 3 Comprehensive Metabolic Panel 05/22/2018 Glucose 78 mg/dL 74-106 3 BUN 9 mg/dL 7-18 3 Creatinine 0.8 mg/dL 0.6-1.3 3 Glom Filtration Rate, Estimate >60 mL/min >60 3 If >60 mL/min >60 3, 4 BUN/Creat 11.2 ratio 3 Sodium 139 mmol/L 136-145 3 Potassium 4.4 mmol/L 3.5-5.1 3 Chloride 106 mmol/L 98-107 3 Carbon Dioxide 25 mmol/L 21-32 3 Anion Gap 8 mEq/L 8-16 3 Calcium 8.7 mg/dL 8.5-10.1 3 Total Protein 7.7 g/dL 6.4-8.2 3 Albumin 3.6 g/dL 3.4-5.0 3 Globulin 4.1 g/dL 1.9-4.3 3 Alb/Glob 0.9 ratio 3 Bilirubin,Total 0.3 mg/dL 0.2-1.0 3 Sgot/Ast 14 U/L Low 15-37 3, 5 SGPT/Alt 24 U/L 12-78 3 Alkaline Phosphatase 73 U/L 45-117 3 Protime 05/22/2018 Protime 12.2 seconds 12.0-14.4 3 Inr 0.9 0.9-1.1 3, 6 Anticoagulant Therapy? NO 3 Slide Review 05/22/2018 Slide Review (SEE NOTE) 3, 7 Anticoagulant Therapy? NO 3 Act Partial Thrombo Time 05/22/2018 Act Partial Thrombo 28.4 seconds 23.4 -35.0 3 Time Anticoagulant Therapy? NO 3 CBC Auto Diff 05/11/2018 White Blood Count [...] Egfr Non- 95.8 >60 Egfr 115.9 >60 8 Laboratory test 05/11/2018 HCG < 0.60 mIU/mL 9 finding Laboratory test 05/19/2017 Urine Culture SEE RESULT BELOW 10, 11 finding Laboratory test 11/05/2016 Urine Culture SEE RESULT BELOW 12, 13 finding Celiac Panel 08/08/2016 Tissue Transglutaminase <1.2 U/mL 14 IgA Ab Immunoglobulin A 419 mg/dL 61 - 356 Celiac Interpretation See Comment 15 CBC Auto Diff 08/08/2016 White Blood Count [...] % 0 Laboratory Studies 08/05/2016 Urine Specific [place] 1.008 Low 1.010- 1.030 Urine pH 6.0 5-9 Laboratory test finding 08/05/2016 Urine Culture SEE RESULT BELOW 16 Laboratory Studies 08/05/2016 Absolute Basophils 0 10^3/ul [...] test 08/05/2016 Blood Culture SEE RESULT BELOW 17, 18 finding CBC Auto Diff 08/02/2016 White Blood Count 14.4 10^3/uL High 3.5-10.8 19 Red Blood Count 4.78 10^6/uL 4.0-5.4 19 Hemoglobin 14.7 g/dL 12.0-16.0 19 Hematocrit 43 % 35-47 19 Mean Corpuscular Volume 90 fL 80-97 19 Mean Corpuscular Hemoglobin 31 pg 27-31 19 Mean Corpuscular HGB Conc 34 g/dL 31-36 19 Red Cell Distribution Width 12 % 10.5-15 19 Platelet Count 300 10^3/uL 150-450 19 Mean Platelet Volume 9 um3 7.4-10.4 19 Abs Neutrophils 11.0 10^3/uL High 1.5-7.7 19 Abs Lymphocytes 2.5 10^3/uL 1.0-4.8 19 Abs Monocytes 0.7 10^3/uL 0-0.8 19 Abs Eosinophils 0.2 10^3/uL 0-0.6 19 Abs Basophils 0.1 10^3/uL 0-0.2 19 Abs Nucleated RBC 0.03 10^3/uL 19 Granulocyte % 76.4 % 38-83 19 Lymphocyte % 17.4 % Low 25-47 19 Monocyte % 4.8 % 1-9 19 Eosinophil % 1.1 % 0-6 19 Basophil % 0.3 % 0-2 19 Nucleated Red Blood Cells % 0.2 19 Laboratory test 08/02/2016 TSH (Thyroid 1.04 mcIU/mL 0.34-5.60 19, 20 finding Stimulating Horm) Comp Metabolic Panel 08/02/2016 Sodium 139 mmol/L 133-145 19 Potassium 3.9 mmol/L 3.5-5.0 19 Chloride 108 mmol/L 101-111 19 Co2 Carbon Dioxide 23 mmol/L 22-32 19 Anion Gap 8 mmol/L 2-11 19 Glucose 79 mg/dL 70-100 19 Blood Urea Nitrogen 9 mg/dL 6-24 19 Creatinine 0.77 mg/dL 0.51-0.95 19 BUN/Creatinine Ratio 11.7 8-20 19 Calcium 9.3 mg/dL 8.6-10.3 19 Total Protein 7.1 g/dL 6.4-8.9 19 Albumin 4.3 g/dL 3.2-5.2 19 Globulin 2.8 g/dL 2-4 19 Albumin/Globulin Ratio 1.5 1-3 19 Total Bilirubin 0.40 mg/dL 0.2-1.0 19 Alkaline Phosphatase 82 U/L 34-104 19 Alt 14 U/L 7-52 19 Ast 17 U/L 13-39 19 Egfr Non- 89.9 >60 19 Egfr 115.6 >60 19, 21 Laboratory test 08/02/2016 Vitamin D 80 pg/mL 18-78 19, 22 finding 1,25-Dihydroxy CBC Auto Diff 03/19/2016 White Blood Count 11.0 10^3/uL High 3.5-10.8 23 Red Blood Count 4.48 10^6/uL 4.0-5.4 23 Hemoglobin 13.9 g/dL 12.0-16.0 23 Hematocrit 41 % 35-47 23 Mean Corpuscular Volume 91 fL 80-97 23 Mean Corpuscular Hemoglobin 31 pg 27-31 23 Mean Corpuscular HGB Conc 34 g/dL 31-36 23 Red Cell Distribution Width 13 % 10.5-15 23 Platelet Count 300 10^3/uL 150-450 23 Mean Platelet Volume 8 um3 7.4-10.4 23 Abs Neutrophils 6.6 10^3/uL 1.5-7.7 23 Abs Lymphocytes 3.4 10^3/uL 1.0-4.8 23 Abs Monocytes 0.6 10^3/uL 0-0.8 23 Abs Eosinophils 0.4 10^3/uL 0-0.6 23 Abs Basophils 0 10^3/uL 0-0.2 23 Abs Nucleated RBC 0.01 10^3/uL 23 Granulocyte % 60.2 % 38-83 23 Lymphocyte % 30.4 % 25-47 23 Monocyte % 5.6 % 1-9 23 Eosinophil % 3.4 % 0-6 23 Basophil % 0.4 % 0-2 23 Nucleated Red Blood Cells % 0.1 23 Laboratory test 03/19/2016 TSH (Thyroid 1.08 mcIU/mL 0.34-5.60 23, 24 finding Stimulating Horm) CBC W/Automated Diff 07/11/2015 [...] C Reactive Protein 3.24 mg/L < 5.00 25 Creatine Kinase 42 U/L 10-223 Magnesium 2.0 [...] Egfr Non- 84.3 >60 Egfr 108.4 >60 26 Laboratory test finding 07/11/2015 Nicolette (Anti-Nuclear AB) Negative Negative Screen Laboratory test finding 02/01/2015 TSH (Thyroid Stimulating 1.00 ?IU/mL 0.34-5.60 Horm) Basic Metabolic Panel 02/01/2015 Sodium 137 mmol/L 133-145 Potassium 3.9 mmol/L 3.5-5.0 Chloride 104 mmol/L 101-111 Co2 Carbon Dioxide 27 mmol/L 22-32 Anion Gap 6 mmol/L 2-11 Glucose 104 mg/dL High 70-100 Blood Urea Nitrogen 12 mg/dL 6-24 Creatinine 0.80 mg/dL 0.51-0.95 BUN/Creatinine Ratio 15.0 8-20 Calcium 9.2 mg/dL 8.6-10.3 Egfr Non- 86.7 >60 Egfr 111.5 >60 27 Laboratory test finding 02/01/2015 C Reactive Protein 7.06 mg/L High < 5.00 28 Erythrocyte Sed Rate 8 mm/Hr 0-14 Liver Function Tests 02/01/2015 Total Protein 7.0 g/dL 6.4-8.9 Albumin 4.2 g/dL 3.2-5.2 Globulin 2.8 g/dL 2-4 Albumin/Globulin Ratio 1.5 1-3 Total Bilirubin 0.40 mg/dL 0.2-1.0 Direct Bilirubin 0.10 mg/dL 0.03-0.18 Indirect Bilirubin 0.3 mg/dL 0.3-1.0 Alkaline Phosphatase 62 U/L 34-104 Alt 10 U/L 7-52 Ast 15 U/L 13-39 CBC Auto Diff 02/01/2015 White Blood Count [...] Negative Screen Lyme Disease Serology Negative Negative 29 Rapid Influenza A B 08/18/2014 Rapid Influenza A B (See Note) 30, 31 Antigen Antigen Laboratory test 05/27/2014 TSH (Thyroid 1.02 IU/mL 0.34-5.60 finding Stimulating Horm) CBC 05/27/2014 Hematocrit 39 % 35-47 Hemoglobin 14.3 g/dL 12.0-16.0 Mean Corpuscular HGB Conc 37 g/dL High 31-36 Mean Corpuscular Hemoglobin 31 pg 27-31 Mean Corpuscular Volume 84 fL 80-97 Mean Platelet Volume 8 um3 7.4-10.4 Platelet Count 280 10^3/uL 150-450 Red Blood Count 4.65 10^6/uL 4.0-5.4 Red Cell Distribution Width 13 % 10.5-15 White Blood Count 9.9 10^3/uL 4.8-10.8 Iron-Tibc-%Sat 05/27/2014 % Iron Saturation 33 % 15-55 Iron 148 g/dL 50-212 Total Iron Binding Capacity 448 g/dL 250-450 Unsaturated Iron Binding 300 g/dL Laboratory test 01/05/2014 Rapid Plasma Reagin Nonreactive 32 finding Nonreactive CBC 01/05/2014 Hematocrit 34.3 % Low 36.0-46.1 [...] White Blood Count 13.8 K/uL High 3.1-10.7 Type And Screen 01/05/2014 Antibody Screen Negative Negative Patient Blood Type O Neg Laboratory test 01/01/2014 Rapid Plasma Reagin Nonreactive 33 finding Nonreactive CBC 01/01/2014 Hematocrit 34.7 % Low 36.0-46.1 [...] Patient Blood Type O Neg Laboratory test finding 12/01/2013 Vaginal Strep Screen See Note 34 Chlamydia/GC Yamile 12/01/2013 Chlamydia Trachomatis, Yamile Negative Negative Neisseria Gonorrhoeae, Yamile Negative Negative Please note: See Note 35 Laboratory test finding 10/19/2013 1 HR Glucose,Post Glucola 118 mg/dL - 138 36 1 Hour Urine Glucose See Note % Negative 37 1 Hour Urine Ketone See Note Negative 38 Antibody Screen See Note 39 Hemoglobin/Hematocrit 10/19/2013 Hematocrit 31.9 % Low 36.0-46.1 Hemoglobin 11.2 gm/dL Low 11.6-15.8 Laboratory test finding 08/25/2013 Referred to Integrated See Note 40 Genetic Laboratory test finding 08/19/2013 Referred to Integrated See Note 41 Genetic Laboratory test finding 08/09/2013 Urine Culture See Note 42 CBC With Manual Diff 07/13/2013 Abs Basophils [...] Count 9.3 10^3/uL 4.8-10.8 Laboratory test finding 07/13/2013 Nicolette (Anti-Nuclear AB) Negative Negative 43 Screen C Reactive Protein 5.5 mg/dL High Less than 0.5 Erythrocyte Sed Rate 29 mm/Hr High 0-14 Type And Screen 06/17/2013 Antibody Screen Negative Negative Patient Blood Type O Neg Genital Culture W/ Gram Stain 06/17/2013 Genital Culture See Note 44 Gram Stain See Note 45 Chlamydia/GC Yamile 06/17/2013 Chlamydia Trachomatis, Yamile Negative Negative Neisseria Gonorrhoeae, Yamile Negative Negative Please note: See Note 46 Laboratory test finding 06/17/2013 Antibody Detection See Note 47 Bas% 0.2 % 0.0-1.1 Baso # 0.02 K/uL 0.0-0.1 Eo% 1.4 % 0.0-6.6 Eos # 0.14 K/uL 0.0-0.5 HPV High Risk Negative Negative 48 Hematocrit 38.4 % 36.0-46.1 Hemoglobin 13.3 gm/dL 11.6-15.8 Hepatitis B Surface Antigen Nonreactive Nonreactive 49 Lead,Blood (Adult) 2 g/dL 0-19 50 Lymph # 2.31 K/uL 0.8-3.4 Lymph % 23.5 % 17.0-46.1 Mean Cell Volume 92.5 fl 80.9-99.0 Mean Corpuscular HGB 32.0 pg 25.9-32.7 Mean Corpuscular HGB Conc 34.6 g/dL High 30.8-34.3 Mean Platelet Volume 9.8 fL 8.9-12.4 Green # 0.82 K/uL 0.3-0.9 Green % 8.3 % 4.3-13.2 Neut# 6.54 K/uL 1.0-7.0 Neut% 66.6 % 40.4-72.8 Platelet Count 271 K/uL 155-360 Rapid Plasma Reagin Nonreactive Nonreactive 51 Red Blood Count 4.15 M/uL 3.90-5.40 Red Cell Distri Width %CV 12.6 % 11.7-14.4 Red Cell Distri Width SD 40.5 fl 3-47 Rubella IgG Antibody Reactive Reactive ThinPrep Pap: Cervix/Endocx See Note 52 Urine Culture See Note 53 Varicella-Zoster Virus IgG Ab 2.17 Immune>1.09in 54 White Blood Count 9.8 K/uL 3.1-10.7 Comp Metabolic Panel 05/28/2013 Albumin 3.8 g/dL 3.6-5.4 Albumin/Globulin Ratio 1.7 1-3 Alkaline Phosphatase 40 U/L 30-110 Alt 14 U/L 14-54 Anion Gap 5.0 mmol/L 2-11 Ast 16 U/L 12-42 BUN/Creatinine Ratio 8.6 8-20 Blood Urea Nitrogen 6 mg/dL 6-24 Calcium 9.0 mg/dL 8.1-9.9 Chloride 107 mmol/L 101-111 Co2 Carbon Dioxide 26.0 mmol/L 22-32 Creatinine 0.70 mg/dL 0.50-1.40 Egfr 132.2 >60 55 Egfr Non- 102.8 >60 Globulin 2.3 g/dL 2-4 Glucose 68 mg/dL Low 70-100 Potassium 4.4 mmol/L 3.5-5.0 Sodium 138 mmol/L 133-145 Total Bilirubin 0.9 mg/dL 0.4-1.5 Total Protein 6.1 g/dL Low 6.2-8.1 CBC With Manual Diff 05/28/2013 Abs Basophils [...] White Blood Count 13.6 10^3/uL High 4.8-10.8 Laboratory test finding 05/04/2013 Beta HCG Quantitative 854.0 MIU/ML High 0.0-5.0 56 1 SENT BY CC. NUMBNESS IN FACE POST VASCULAR SURGERY 2 Note: Persistent reduction for 3 months or more in an eGFR <60 mL/min/1.73 m2 defines CKD. Patients with eGFR values >/=60 mL/min/1.73 m2 may also have CKD if evidence of persistent proteinuria is present. The original MDRD equation for estimated GFR is not valid for patients less than 18 years of age. Additional information may be found at www.kdoqi.org. 3 Z01.818 4 Note: Persistent reduction for 3 months or more in an eGFR <60 mL/min/1.73 m2 defines CKD. Patients with eGFR values >/=60 mL/min/1.73 m2 may also have CKD if evidence of persistent proteinuria is present. The original MDRD equation for estimated GFR is not valid for patients less than 18 years of age. Additional information may be found at www.kdoqi.org. 5 Values below the stated reference ranges of AST and ALT can be seen in normal populations. Clinical correlation is suggested. 6 THERAPEUTIC INR RANGE: 2.0 - 3.0 DVT, Pulmonary embolus, prophylaxis against venous thrombosis or systemic embolization in high risk patients. 2.5 - 3.5 Mechanical heart valves 7 Instrument flagged sample for slide review. Less than 10% Bands seen, no other immature WBC's seen. RBC morphology essentially normal. Platelet estimate=NORMAL 8 Because ethnic data is not always readily [...] 15-29 5 Kidney failure <15 (or dialysis) 9 <5.0 Negative 5.0 - 25.0 Indeterminate (Repeat testing recommended after 72 hours) >25.0 Positive Perimenopausal women can display HCG levels of up to 20 mIU/mL 10 [id number] 11 SEE RESULT BELOW Name: MARLYN FIELDS : [address]: Ivan Null MD Acct: [id number] Unit: [id number] AGE: 26 Location: [facility] Re05/19/17 SEX: F Status: DEP ER SPEC: [id number] MC: 05/19/[address] [facility] [address]: Ivan Null MD REQ: [id number] RECD: 05/20/17 STATUS: JALEESA SHARMA DR: Eleonora Barnett MD _ SOURCE: URINE SPDESC: ORDERED: Urine Culture COMMENTS: [id number] Procedure Result Reported Site Urine Culture Final 05/22/17- 08 ML Organism 1 ESCHERICHIA COLI Newton Count >100,000 (Many) CFU/ML 1. ESCHERICHIA COLI [...] antibiotic reporting. * ML - MAIN LAB ([facility]) . END OF REPORT * ML=Testing performed at Main Lab DEPARTMENT OF PATHOLOGY, [address] [place] [address] Dave Long M.D. Director [facility] # [id number] 12 [id number] 13 SEE RESULT BELOW Name: MARLYN FIELDS : [address]: Heber Arechiga MD Acct: [id number] Unit: [id number] AGE: 25 Location: [facility] Re11/05/16 SEX: F Status: DEP ER SPEC: [id number] CM: 11/05/16-[address] [facility] [address]: Zeina Urbina NP REQ: [id number] RECD: 11/05/16 STATUS: JALEESA SHARMA DR: Heber Barnett MD _ SOURCE: URINE SPDESC: ORDERED: Urine Culture COMMENTS: [id number] Procedure Result Reported Site Urine Culture Final 11/07/16- 0841 ML Organism 1 ESCHERICHIA COLI [place] Count 75-100,000 (Many) CFU/ML 1. ESCHERICHIA COLI [...] antibiotic reporting. * ML - MAIN LAB ([facility]) . END OF REPORT * ML=Testing performed at Main Lab DEPARTMENT OF PATHOLOGY, [address] [place] [address] Dave Long M.D. Director [facility] # [id number] 14 REFERENCE VALUE <4.0 (Negative) Test Performed by: [address] [address] Traffic Chief: Renee Anna II, M.D., Ph.D. 15 Negative serology. Celiac disease unlikely. However, approximately 10% of patients with celiac disease are seronegative. Also, patients who are already adhering to a gluten-free diet may be seronegative. If celiac disease is highly clinically suspected, consider HLA-DQ typing. Test Performed by: [address] [address] Traffic Chief: Renee Anna II, M.D., Ph.D. 16 SEE RESULT BELOW Name: MARLYN FIELDS : [address]: Lupe Lemon MD Acct: [id number] Unit: [id number] AGE: 25 Location: ED Re08/05/16 SEX: F Status: DEP ER SPEC: [id number] MC: 08/05/[address] [facility] [address]: Lupe Lemon MD REQ: [id number] RECD: 08/05/16 STATUS: JALEESA SHARMA DR: Eleonora Barnett MD _ SOURCE: URINE SPDESC: ORDERED: Urine Culture Procedure Result Reported Site Urine Culture Final 08/07/16- 0838 ML No Growth (<1,000 CFU/mL) * ML - [facility] ([facility]) . END OF REPORT * ML=Testing performed at Main Lab DEPARTMENT OF PATHOLOGY, [address] [place] [address] Dave Long M.D. Director [facility] # [id number] 17 Patient is On Antibiotics? YES 18 SEE RESULT BELOW Name: MARLYN FIELDS : [address]: Lupe Lemon MD Acct: [id number] Unit: [id number] AGE: 25 Location: ED Re08/05/16 SEX: F Status: DEP ER SPEC: [id number] MC: 08/06/[address]: Lupe Lemon MD REQ: [id number] RECD: 08/06/16 STATUS: JALEESA SHARMA DR: Eleonora Barnett MD _ SOURCE: BLOOD,[facility]: ORDERED: Blood Cult Procedure Result Reported Site Aerobic Culture Bottle Final 08/11/16- 0236 ML No Growth Day 5 Anaerobic Culture Bottle Final 08/11/16- 0236 ML No Growth Day 5 * ML - MAIN LAB ([facility]) . END OF REPORT * ML=Testing performed at Main Lab DEPARTMENT OF PATHOLOGY, [address] [place] [address] Dave Long M.D. Director [facility] # [id number] 19 [id number] 20 [id number] 21 Because ethnic data is not always readily [...] 15-29 5 Kidney failure <15 (or dialysis) 22 ADDITIONAL INFORMATION This test was developed and its performance characteristics determined by [facility] in a manner consistent with CLIA requirements. This test has not been cleared or approved by the U.S. Food and Drug Administration. Test Performed by: [place] [address] Traffic Chief: Renee Anna II, M.D., Ph.D. 23 [id number] 24 [id number] 25 Acute inflammation: >10.00 26 Because ethnic data is not always readily [...] 15-29 5 Kidney failure <15 (or dialysis) 27 Because ethnic data is not always [...] 5 Kidney failure <15 (or dialysis) 28 Acute inflammation: >10.00 29 Serologic response to B. burgdorferi infection is not detected, but cannot rule out early infection during which low or undetectable antibody levels to B. burgdorferi may be present. If clinically indicated, a new serum specimen should be submitted in 7-14 days. Test Performed by: [place] [address] Traffic Chief: Renee Anna II, M.D., Ph.D. 30 Verbal to by [id number] at 1206 on 08/19/14.~Results read back accurately. 31 RUN DATE: 08/19/14 [facility] LAB LIVE PAGE 1 RUN TIME: [address] [place] [id number] Specimen Inquiry ----- Name: MARLYN FIELDS : [address]: Felecia Siddiqui MD Acct: [id number] Unit: [id number] AGE: 23 Location: [facility] Re08/18/14 SEX: F Status: DEP ER ----- SPEC: [id number] MC: 08/18/[address] [facility] [address]: Felecia Siddiqui MD REQ: [id number] RECD: 08/19/14 STATUS: JALEESA [facility] DR: Jena Holden MD _ SOURCE: [facility]: ORDERED: Rapid Flu A B COMMENTS: Verbal to by [id number] at 1206 on 08/19/14. Results read back [...] performed at Main Lab DEPARTMENT OF PATHOLOGY, [address] [place] [address] Dave Long M.D. Director [facility] # [id number] 32 PENDING; TEST PERFORMED ON MONDAYS AND THURSDAYS 33 PENDING; TEST PERFORMED ON MONDAYS AND THURSDAYS 34 NO GROUP B STREPTOCOCCI ISOLATED 35 Acceptable specimens for this test are male urethral swab, endocervical swab and liquid based pap specimens, vaginal swabs in APTIMA transports and first void urine. See online Directory of Services for test number for rectal and pharyngeal specimens. [facility] [address] [id number] Record Center Specialist: Cinthia Becker MD, Phone: [phone] 36 POST GLUCOLA 37 NO SPECIMEN RECEIVED 38 NO SPECIMEN RECEIVED 39 [phone] 10/19/13 LAB.TOW NEED MANUAL SCREEN 40 [employer] Specimen testing referred to [facility]. 41 TEST CANCELLED BY IG. SPEC HEMOLYZED. NEW SPEC SENT 08/25/13 42 COLONY COUNT ! 50,000 - 60,000 CFU/ml Organism 1 ! URETHRAL MELA 43 @Sample frozen by [id number] at 1533 on 07/13/13. 44 GENITAL MELA 45 GRAM STAIN ! GRAM STAIN INDICATES NORMAL GENITAL MELA ! MANY GR POS. BACILLI SUGGESTIVE OF LACTOBACILLUS SP. ! FEW GRAM VARIABLE COCCOBACILLI ! VERY FEW GRAM POS BACILLI SUGGESTIVE OF CORYNEBACTERIA 46 Acceptable specimens for this test are male urethral swab, endocervical swab and liquid based pap specimens, vaginal swabs in [facility] transports and first void urine. See online Directory of Services for test number for rectal and pharyngeal specimens. Performed at: [address] [id number] [facility] Specialist: Cinthia Becker MD, Phone: [phone] 47 No reportable results 48 This high-risk HPV test detects thirteen high-risk types (16/18/31/33/35/39/45/51/52/56/58/59/68) without differentiation. Performed at: [address] [id number] Record Center Specialist: Cinthia Becker MD, Phone: [phone] HBsAg not detected; does not exclude the possibility of exposure to or early acute infections with HBV. 50 The Centers for Disease Control and Prevention states blood lead levels less than 10 ug/dL in children have been associated with numerous adverse health effects. [facility] Guidelines: Blood lead levels in the range 5-9 ug/dL have been associated with adverse health effects in children aged 6 years and younger. Environmental Exposure: WHO Recommendation <20 Occupational Exposure: OSHA Lead Std 40 Detection Limit=1 51 PENDING; TEST PERFORMED ON MONDAYS AND THURSDAYS 52 CYTOLOGY SCREENER - SAUSAGE SMOKER @ 09/28 Screened by: Sierra PARKINSON(ASCP) PAP: FINAL REPORT SPECIMEN ADEQUACY: SPECIMEN SATISFACTORY FOR INTERPRETATION SAMPLE VIAL SENT OUT FOR HPV TESTING AT CLINICIAN'S REQUEST INTERPRETATION: ATYPICAL SQUAMOUS CELLS OF UNDETERMINED SIGNIFICANCE COMMENT: HIGH RISK HPV TEST ([id number] ): NEGATIVE THINPREP PREPARED PAP SLIDE # Prepared in the Cytology laboratory from the ThinPrep sample is 1 ThinPrep smear. PAP ACCESSI QUESTIONNAIRE 08/27 PERTINENT CLINICAL HISTORY FOR PAP (SAUSAGE SMOKER) CYTOLOGY (Check all that apply): ? Y [...] for detecting cervical dysplasia and carcinoma. ----- RENEE Goodman MD 06/22/13 1554 ----- 53 COLONY COUNT ! 10,000 - 20,000 CFU/ml Organism 1 ! URETHRAL MELA 54 Nonimmune <0.91 Equivocal 0.91 - 1.09 Immune >1.09 Performed at: RN - [facility] [address] [id number] Record Center Specialist: Cinthia Becker MD, Phone: [phone] Because ethnic data is not always readily [...] 15-29 5 Kidney failure <15 (or dialysis) 56 Males: < 5.0 miu/ml Non females < [...] Procedures Date CPT Code Description Status 05/22/2018 03281 EKG-Tracing And Report Completed 01/05/2014 23007 Anesthesia,Neuraxial Labor Completed Encounters Type Date Location Provider CPT E/M Dx Office Visit 06/09/2018 8:00a [facility] [place] [address] R29.810 F17.210 I73.9 R51 Office Visit 05/22/2018 9:30a [facility] Christina Carvalho, [facility] [address] Z01.818 M25.552 Office Visit 08/08/2016 10:30a [facility] Eleonora Barnett M.D. [address] R19.7 R11.2 Office Visit 07/10/2015 4:45p [facility] [place] [address] M79.1 Plan of Care Future Appointment(s):07/07/2018 9:15 am - Domi Ly PA at [facility]06/09/2018 - Domi Ly PAR29.810 Facial weaknessNew Xrays:MRI, Brain, W/O Fol W/ ContrastReferral:Altaf Archer MD, FtaobssyzG44.210 Nicotine dependence, cigarettes, uncomplicatedComments:Continue to cut down. Smoking cessation resources may help=[employer] 866 [place]-ErkweS67.9 Peripheral vascular disease, unspecifiedComments:Incision is healing wel. Continue to elevate and take it easy. Follow up w surgeon as scheduled.R51 HeadacheComments:Headache can be triggered by a variety of factors. These include, fatigue, stress, dehydration and caffeine or caffeine withdrawal. Try to stay well hydrated, well rested and reduce your stress. Use the medication as directed. Try not to use OTC analgesics too frequently. This can lead to rebound headache. Apply moist heat 10-15 minutes. Stretch as demonstrated in the office. COnsider chiropractictreatment. Back to [facility] Lisa. Patricia Hughes.
[2018-06-10 08:51] VITALS: BP 127/75
--- NOTE | 2018-06-10 10:22 | UC ---
Lower Extremity/Ankle HPI - HPI Summary HPI Summary: 27-year-old woman comes in today with a chief complaint of left foot pain. 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 kulwant bowen in [place]. Couple of months ago the patient was having some numbness in her left foot was grossly worsened and she was reevaluated here sent to the [place] emergency department which did a CTA which found the femoral artery dissection from there she went to [place] and had her surgery done. Since that time she's had some pain and swelling in the left foot it gradually has been improving. Couple days ago it was improved greatly and she was only using one Percocet in the evening. Yesterday the pain became significantly worse and 9 out of 10 pain in the foot she also noticed a rash on the foot. Any Movement makes the pain worse having a shoe on and the foot elevated decreases the pain somewhat. - History of Current Complaint Chief Complaint: UCLowerExtremity Stated Complaint: LEFT LEG PAIN Time Seen by Provider: 06/10/18 09:19 Hx Last Menstrual Period: 05/06/18 Pain Intensity: 10 - Allergies/Home Medications Allergies/Adverse Reactions: Allergies Allergy/AdvReac Type Severity Reaction Status Date / Time hydrocodone [From Vicodin] Allergy Difficulty Verified 06/10/18 08:43 Breathing PMH/Surg Hx/FS Hx/Imm Hx Previously Healthy: No - LEFT FEMORAL ARTERY DISSECTION - Surgical History Surgical History: Yes Surgery Procedure, Year, and Place: Appendectomy, ~2010, [place] LEFT HIP SURGERY , 01/28/18 - ARTHROSCOPIC LABRAL REPAIR & IMPINGEMENT-. left femoral artery repair 05/28/18 - Family History Known Family History: Positive: None - no reports of past medical history in family Negative: Cardiac Disease, Hypertension, Diabetes Family History: family hx of thyroid disorder - Social History Alcohol Use: Rare Alcohol Amount: "special occasions like weddings" Substance Use Type: Prescribed Smoking Status (MU): Heavy Every Day Tobacco Smoker Type: Cigarettes Amount Used/How Often: 1/2 PPD X 10 YEARS Length of Time of Smoking/Using Tobacco: On and Off for 11 Years Have You Smoked in the Last Year: Yes - Immunization History Most Recent Influenza Vaccination: Not the 2016/2016 Season Review of Systems Constitutional: Negative Skin: Rash - SEE HPI Eyes: Negative ENT: Negative Respiratory: Negative Cardiovascular: Negative Gastrointestinal: Negative Motor: Negative Neurovascular: Negative Musculoskeletal: Other: - SEE HPI Neurological: Negative Psychological: Negative Is Patient Immunocompromised?: No All Other Systems Reviewed And Are Negative: Yes Physical Exam Triage Information Reviewed: Yes Appearance: Well-Appearing, Well-Nourished, Pain Distress Vital Signs: Initial Vital Signs Temp 98.4 F 06/10/18 08:45 Pulse 97 06/10/18 08:45 Resp 14 06/10/18 08:45 BP 127/75 06/10/18 08:45 Pulse Ox 99 06/10/18 08:45 Eye Exam: Normal Eyes: Positive: Conjunctiva Clear Neck exam: Normal Neck: Positive: Supple Respiratory: Positive: No respiratory distress Musculoskeletal: Positive: Other: - Left foot as swelling capillary refill is less than 2 seconds tender to palpation throughout the whole foot primarily of the distal foot there is a nonblanching petechial rash scattered on the dorsum of the distal left foot. I'm unable to palpate a dorsalis pedis or posterior tibial pulses in that foot. Neurological Exam: Normal Neurological: Positive: Alert, Muscle Tone Normal Psychological Exam: Normal Psychological: Positive: Age Appropriate Behavior Skin: Positive: rashes, Other - At the left inguinal area of the surgical site is clean and dry and intact it's firm to palpation Lower Extremity Course/Dx - Course Course Of Treatment: I discussed the case with Dr. Albert farris nurse at [facility]. Numbers [phone]. They would like to see the patient in their clinic this morning. I discussed this with the patient she 's been a drive up to the [facility] clinic now. - Differential Dx/Diagnosis Provider Diagnoses: LEFT FOOT PAIN Discharge - Sign-Out/Discharge Documenting (check all that apply): Patient Departure All imaging exams completed and their final reports reviewed: No Studies - Discharge Plan Condition: Stable Disposition: HOME Referrals: Domi Ly PA [Primary Care Provider] - Additional Instructions: GO DIRECT[facility] TO [facility],, [address] [place] [address], 4TH FLOOR ROOM 7596 - Billing Disposition and Condition Condition: STABLE Disposition: Home
== END 2018-06-10 10:33 | disposition home or self-care (01) ==
LOC: UCCORT 08:25
DX: M79.672 Pain in left foot (principal); F17.210 Nicotine dependence, cigarettes, uncomplicated; Z79.891 Long term (current) use of opiate analgesic; Z98.890 Other specified postprocedural states
CPT/HCPCS: 99211; G0463

== ENCOUNTER 2018-06-15 08:57 | Emergency (ER) | payer BC ==
--- NOTE | 2018-06-15 09:56 | UC ---
Ear Complaint HPI - HPI Summary HPI Summary: 27 yo female presents with a complex recent history. She tells me that about 2 weeks ago she had right sided facial numbness. Went to the ER and everything was normal - per pt. Since that time she has had b/l ear "fullness" that is intermittent. Her facial numbness is improved and is scheduled to f/u with a neurologist. She denies headache, dizziness, sinus symptoms, sore throat, fever , or chills. - History of Current Complaint Stated Complaint: RT EAR ACHE Time Seen by Provider: 06/15/18 09:56 Hx Obtained From: Patient Hx Last Menstrual Period: 05/06/18 Onset/Duration: Gradual Onset Severity Initially: Moderate Severity Currently: Moderate Pain Intensity: 5 Pain Scale Used: 0-10 Numeric - Allergies/Home Medications Allergies/Adverse Reactions: Allergies Allergy/AdvReac Type Severity Reaction Status Date / Time hydrocodone [From Vicodin] Allergy Difficulty Verified 06/15/18 09:59 Breathing PMH/Surg Hx/FS Hx/Imm Hx Psychological History: Anxiety - Surgical History Surgical History: Yes Surgery Procedure, Year, and Place: Appendectomy, ~2010, [facility]. LEFT HIP SURGERY , 01/28/18 - ARTHROSCOPIC LABRAL REPAIR & IMPINGEMENT-. left femoral artery repair 05/28/18-REMOVED VEIN NO GRAFT- [facility] - Family History Known Family History: Positive: None Negative: Cardiac Disease, Hypertension, Diabetes Family History: family hx of thyroid disorder - Social History Occupation: Employed Full-time Lives: With Family Alcohol Use: Rare Alcohol Amount: "special occasions like weddings" Substance Use Type: Prescribed Smoking Status (MU): Heavy Every Day Tobacco Smoker Type: Cigarettes Amount Used/How Often: 1/2 PPD X 10 YEARS Length of Time of Smoking/Using Tobacco: On and Off for 11 Years Have You Smoked in the Last Year: Yes - Immunization History Most Recent Influenza Vaccination: Not the 2016/2017 Season Review of Systems Constitutional: Negative Skin: Negative Eyes: Negative ENT: Ear Ache Respiratory: Negative Cardiovascular: Negative Gastrointestinal: Negative Neurovascular: Negative Neurological: Negative Psychological: Negative All Other Systems Reviewed And Are Negative: Yes Physical Exam - Summary Physical Exam Summary: GENERAL: NAD. WDWN. No pain distress. SKIN: No rashes, sores, lesions, or open wounds. HEENT: Head: AT/NC Eyes: EOM intact. Conjunctiva clear without inflammation or discharge. Ears: Hearing grossly normal. B/L TMs with mild clear fluid. TMs intact, no bulging, erythema, or edema. Nose: Nasal mucosa pink and moist. NTTP maxillary and frontal sinus. Throat: Posterior oropharynx without exudates, erythema, or tonsillar enlargement. Uvula midline. NECK: Supple. Nontender. No lymphadenopathy. CHEST: CTAB. No r/r/w. No accessory muscle use. Breathing comfortably and in no distress. CV: RRR. Without m/r/g. Pulses intact. Cap refill <2seconds NEURO: Alert. PSYCH: Age appropriate behavior. Triage Information Reviewed: Yes Vital Signs: Vital Signs: Temp Pulse Resp BP Pulse Ox 97.5 F 92 16 114/77 98 06/15/18 10:00 06/15/18 10:00 06/15/18 10:00 06/15/18 10:00 06/15/18 10:00 Vital Signs Reviewed: Yes Ear Complaint Course/Dx - Course Course Of Treatment: Suspect allergies/eustacian tube dysfunction. Will have her keep her f/u with her neurologist and try her with flonase and claritin. F/ u with PCP if symptoms persist. - Differential Dx/Diagnosis Provider Diagnoses: Eustacian tube dysfunction Discharge - Sign-Out/Discharge Documenting (check all that apply): Patient Departure All imaging exams completed and their final reports reviewed: No Studies - Discharge Plan Condition: Stable Disposition: HOME Prescriptions: Fluticasone NASAL SPRAY 50MCG* [Flonase NASAL SPRAY 50MCG*] 2 spray BOTH NARES DAILY #1 btl Loratadine [Claritin 10 MG CAP] 10 mg PO DAILY #30 cap Referrals: Domi Ly PA [Primary Care Provider] - Additional Instructions: If you develop a fever, shortness of breath, chest pain, new or worsening symptoms - please call your PCP or go to the ED. - Billing Disposition and Condition Condition: STABLE Disposition: Home
[2018-06-15 10:02] VITALS: BP 114/77
== END 2018-06-15 10:22 | disposition home or self-care (01) ==
LOC: UCCORT 08:57
DX: H69.91 Unspecified Eustachian tube disorder, right ear (principal); F17.210 Nicotine dependence, cigarettes, uncomplicated; Z88.5 Allergy status to narcotic agent
CPT/HCPCS: 99212; G0463

== ENCOUNTER 2018-08-19 10:04 | Emergency (ER) | payer BC ==
[2018-08-19 13:12] VITALS: BP 111/74
--- NOTE | 2018-08-19 13:38 | UC ---
General HPI - HPI Summary HPI Summary: Pt presents to with left sided headache, frontal pressure, intermittent left ear pressure and left jaw pain x 3 days. . PT denies fevers, chills. Pt states left ear intermittently "popping' pt with a history of migraines - states feels similar. Pt states took 200mg Motrin and 1 percocet with little improvement. States sx improved following hot shower. discomfort x 24 hours. no rash. no sick contact. no sore throat. No cough, sob, wheeze. Pt states has right sided facial paresthesia - ongoing x > 1 month. Pt has been evaluated and seen neurology for this Pt with complex med hx over past 12 months including hip surgery, femoral artery dissection, post op posisble cva. Pt currently taking ASA only. Pt states has not called PCP for current sx. Pt states not . Pt states she does have episodes of feeling anxious and heart pouding. Pt has prn ativan takes with improvement. pt's medicaitons reviewed this visit - History of Current Complaint Chief Complaint: UCHeadache Stated Complaint: HEADACHE,COUGH,EAR PAIN Time Seen by Provider: 08/19/18 13:23 Hx Obtained From: Patient, Medical Records Hx Last Menstrual Period: 08/13/18 Onset/Duration: Gradual Onset, Lasting Days Pain Intensity: 8 - Allergy/Home Medications Allergies/Adverse Reactions: Allergies Allergy/AdvReac Type Severity Reaction Status Date / Time hydrocodone [From Vicodin] Allergy Difficulty Verified 06/15/18 09:59 Breathing Home Medications: Home Medications Ibuprofen TAB* [Advil TAB*] 600 mg PO Q6H PRN 08/19/18 [History Confirmed ] PMH/Surg Hx/FS Hx/Imm Hx Previously Healthy: No - hip surgery, femoral artery dissection, possible CVA/ TIA - Surgical History Surgical History: Yes Surgery Procedure, Year, and Place: Appendectomy, ~2010, [facility]. LEFT HIP SURGERY , 01/28/18 - ARTHROSCOPIC LABRAL REPAIR & IMPINGEMENT-. left femoral artery repair 05/28/18-REMOVED VEIN NO GRAFT- [facility] - Family History Known Family History: Positive: Non-Contributory Negative: Cardiac Disease, Hypertension, Diabetes Family History: family hx of thyroid disorder - Social History Occupation: Employed Part-time Lives: With Family Alcohol Use: Rare Alcohol Amount: "special occasions like weddings" Substance Use Type: None Smoking Status (MU): Heavy Every Day Tobacco Smoker Type: Cigarettes Amount Used/How Often: 1/2 PPD X 10 YEARS Length of Time of Smoking/Using Tobacco: On and Off for 11 Years Have You Smoked in the Last Year: Yes - Immunization History Most Recent Influenza Vaccination: Not the 2015/2016 Season Review of Systems All Other Systems Reviewed And Are Negative: Yes Constitutional: Positive: Fatigue Eyes: Positive: Negative ENT: Positive: Ear Ache, Sinus Congestion Respiratory: Positive: Negative Cardiovascular: Positive: Palpitations Gastrointestinal: Positive: Negative Genitourinary: Positive: Negative Neurological: Positive: Paresthesia Psychological: Positive: Anxious Is Patient Immunocompromised?: Yes Physical Exam - Summary Physical Exam Summary: Vital Signs Reviewed: Yes A+Ox3, pt intermittently tearful with conversation/interview, no apparent pain Eyes: Conjunctiva Clear, EVANS. EOM intact and full, no photophobia ENT: Hearing grossly normal, scant fluid left ear. no erythema turbinates inflammed, mild PND. mild left TMJ discomfort with mouth opening, mmoist, uvula midline, no exudate, no erythema Neck: Positive: Supple Respiratory: Positive: No respiratory distress, No accessory muscle use + CTA throughout no w/r Cardiovascular: RRR nl s1, s2 no m/r CBT <2 sec, no temporal artery pain abd soft + BS nt/nd no guarding, no distension Musculoskeletal Exam: HOOKS x 4 without difficulty Strength Intact, ROM Intact Neurological: Positive: Alert, + sensation throughout Psychological: Positive: Normal Response To Family, intermittent tearful during H+P Skin: Positive: no rash, no ecchymosis Triage Information Reviewed: Yes Vital Signs: Initial Vital Signs Temp 98.1 F 08/19/18 13:05 Pulse 91 08/19/18 13:05 Resp 15 08/19/18 13:05 BP 111/74 08/19/18 13:05 Pulse Ox 98 08/19/18 13:05 Course/Dx - Course Course Of Treatment: Pt presents with left sided headache, left ear pain, left nasal congestion x 3 days. Pt with scant fluid in left ear, turbiante inflammed. Pt with recent complex med hx orver last 12 months. I d/w pt regarding stressors and support. Pt requested refill of Ativan - pt has Rx 6 tabs in May - has 3 left. D/w pt may need maintenance medication as ativan for breakthrough - will not refill here. recommend t f/u with PCP. Pt states concern regarding care at PCP - will also give physician referral center. Pt in agreement. for current discomfort - increased motrin/apap, apply heat. d/w pt secretion precaution, decongestant. abx. strict return to ED precuation - Diagnoses Provider Diagnosis: Left serous otitis media, Sinus congestion, Headache Discharge - Sign-Out/Discharge Documenting (check all that apply): Patient Departure All imaging exams completed and their final reports reviewed: No Studies - Discharge Plan Condition: Stable Disposition: HOME Prescriptions: Amoxicillin PO (*) [Amoxicillin 500 MG CAP*] 500 mg PO Q12H #20 cap Fluconazole [Diflucan 150 MG (NF)] 150 mg PO ONCE PRN #1 tab PRN Reason: vaginal yeast infection Patient Education Materials: Sinusitis (ED), General Headache (ED) Referrals: Domi Ly PA [Primary Care Provider] - Additional Instructions: - Stay well hydrated. Drink plenty of non-alcoholic, non-caffinated beverages. - Alternate ibuprofen (Advil, Motrin) 600mg and Tylenol product (Tylenol or percocet) every 3 hours for pain. Take with food. Do NOT take for more than 4- 5 days. - These infections are spread by secretions - do NOT share eating or drinking utensils - clean items you share with other people such as cell phones, computer mouse, TV remote, computer tablets,etc. Once you have been antibiotics for 2 days, change your toothbrush and your pillowcase. - get plenty of restful sleep - humidify the air in the room where you sleep - boil water, run a hot steam shower, vaporizer, cups of water by heat register - okay to take over the counter decongestant and cough medication - use nasal spray as prescribed - take antibiotics as prescribed - contact your doctor today to schedule a recheck later this week. If you pain returns, you develop any new or concerning symptoms it is recommended you go to the emergency department for further evaluation. You have been given contact information for the physician referral center. Okay to contact for assistance if you are considering establishing with a different primary care provider - Billing Disposition and Condition Condition: STABLE Disposition: Home
== END 2018-08-19 14:20 | disposition home or self-care (01) ==
LOC: UCCORT 10:04
DX: H65.92 Unspecified nonsuppurative otitis media, left ear (principal); R09.81 Nasal congestion; R51 Headache; Z88.5 Allergy status to narcotic agent; F17.210 Nicotine dependence, cigarettes, uncomplicated
CPT/HCPCS: 99212; G0463

== ENCOUNTER 2019-02-02 11:01 | Emergency (ER) | payer BC ==
[2019-02-02 11:54] VITALS: BP 110/76
--- NOTE | 2019-02-02 12:11 | UC ---
Throat Pain/Nasal Joel HPI - HPI Summary HPI Summary: sinus pain and pressure x 7 days nasal congestion , cough , pnd, bilateral ear pain and pressure no fever, no chills, no body aches not improving with otc meds - History of Current Complaint Chief Complaint: UCRespiratory Stated Complaint: SINUS CONGESTION Time Seen by Provider: 02/02/19 11:44 Hx Obtained From: Patient Hx Last Menstrual Period: 01/20/19 ?: No Onset/Duration: Gradual Onset, Lasting Days - 7, Still Present Severity: Moderate Pain Intensity: 5 Cough: Nonproductive Associated Signs & Symptoms: Positive: Sinus Discomfort, Nasal Discharge. Negative: Wheezing, Fever, Vomiting, Rash - Allergies/Home Medications Allergies/Adverse Reactions: Allergies Allergy/AdvReac Type Severity Reaction Status Date / Time hydrocodone [From Vicodin] Allergy Difficulty Verified 02/02/19 11:43 Breathing Home Medications: Home Medications Phenylephrine/Dm/Acetaminop/GG [Tylenol Cold-Flu Severe Caplet] 2 each PO PRN [History] Pseudoephedrine TAB* [Sudafed TAB*] 30 mg PO Q6H PRN 02/02/19 [History Confirmed 02/02/19] PMH/Surg Hx/FS Hx/Imm Hx Previously Healthy: Yes - Surgical History Surgical History: Yes Surgery Procedure, Year, and Place: Appendectomy, ~2010, [facility]. LEFT HIP SURGERY , 01/28/18 - ARTHROSCOPIC LABRAL REPAIR & IMPINGEMENT-. left femoral artery repair 05/28/18-REMOVED VEIN NO GRAFT- [facility] - Family History Known Family History: Positive: None, Non-Contributory Negative: Cardiac Disease, Hypertension, Diabetes Family History: family hx of thyroid disorder - Social History Alcohol Use: Rare Alcohol Amount: "special occasions like weddings" Substance Use Type: None Smoking Status (MU): Heavy Every Day Tobacco Smoker Type: Cigarettes Amount Used/How Often: 1/2 PPD X 10 YEARS Length of Time of Smoking/Using Tobacco: On and Off for 11 Years Have You Smoked in the Last Year: Yes Household Exposure Type: Cigarettes - Immunization History Most Recent Influenza Vaccination: Not the 2016/2016 Season Review of Systems All Other Systems Reviewed And Are Negative: Yes Constitutional: Positive: Negative Skin: Positive: Negative Eyes: Positive: Negative ENT: Positive: Sore Throat, Nasal Discharge, Sinus Congestion, Sinus Pain/ Tenderness Respiratory: Positive: Cough Is Patient Immunocompromised?: No Physical Exam Triage Information Reviewed: Yes Appearance: Well-Appearing, No Pain Distress, Well-Nourished Vital Signs: Initial Vital Signs Temp 98.1 F 02/02/19 11:46 Pulse 72 02/02/19 11:46 Resp 15 02/02/19 11:46 BP 110/76 02/02/19 11:46 Pulse Ox 100 02/02/19 11:46 Vital Signs Reviewed: Yes Eye Exam: Normal Eyes: Positive: Conjunctiva Clear ENT: Positive: Normal ENT inspection, Hearing grossly normal, Pharyngeal erythema, Nasal congestion, Nasal drainage, TMs normal, Tonsillar swelling, Tonsillar exudate, Sinus tenderness. Negative: TM bulging, TM dull, TM red Neck: Positive: Supple, Nontender, No Lymphadenopathy Respiratory: Positive: Chest non-tender, Lungs clear, Normal breath sounds Cardiovascular: Positive: RRR, No Murmur, Pulses Normal Skin Exam: Normal Throat Pain/Nasal Course/Dx - Differential Dx/Diagnosis Provider Diagnosis: Sinusitis Discharge - Sign-Out/Discharge Documenting (check all that apply): Patient Departure All imaging exams completed and their final reports reviewed: No Studies - Discharge Plan Condition: Stable Disposition: HOME Prescriptions: Amoxicillin/Clavulanate TAB* [Augmentin TAB 875*] 875 mg PO BID #20 tab Patient Education Materials: Sinusitis (ED) Referrals: Domi Ly PA [Primary Care Provider] - 7 Days - Billing Disposition and Condition Condition: STABLE Disposition: Home
== END 2019-02-02 12:05 | disposition home or self-care (01) ==
LOC: UCCORT 11:01
DX: J32.9 Chronic sinusitis, unspecified (principal); F17.210 Nicotine dependence, cigarettes, uncomplicated
CPT/HCPCS: 99212; G0463

== ENCOUNTER 2019-03-03 08:40 | Emergency (ER) | payer BC ==
[2019-03-03 09:02] VITALS: BP 135/75
--- NOTE | 2019-03-03 09:53 | UC ---
UC General HPI - HPI Summary HPI Summary: 28-year-old woman comes in with a chief complaint of left clavicle pain. Started about 3 days ago. 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 The pain started after hay baling. Also having some intermittent left neck pain with radiation of the pain down into the left arm. Pain in the clavicle and the neck is worse with movement of the left arm. Denies any pain in the shoulder joint itself. No weakness or numbness. She has not taken any medications for the pain. Pain is less when she's not moving. No shortness of breath no fevers. Patient is noted that the left clavicle appears more prominent than the right clavicle and is tender to palpation. No rash. - History of Current Complaint Chief Complaint: UCUpperExtremity Stated Complaint: LEFT SIDE COLLARBONE PAIN Time Seen by Provider: 03/03/19 09:38 Hx Last Menstrual Period: 02/06/19 Pain Intensity: 6 - Allergy/Home Medications Allergies/Adverse Reactions: Allergies Allergy/AdvReac Type Severity Reaction Status Date / Time hydrocodone [From Vicodin] Allergy Difficulty Verified 03/03/19 09:02 Breathing PMH/Surg Hx/FS Hx/Imm Hx Previously Healthy: Yes - Surgical History Surgical History: Yes Surgery Procedure, Year, and Place: Appendectomy, ~2010, [facility]. LEFT HIP SURGERY , 01/28/18 - ARTHROSCOPIC LABRAL REPAIR & IMPINGEMENT-. left femoral artery repair 05/28/18-REMOVED VEIN NO GRAFT- [facility] - Family History Known Family History: Positive: None, Non-Contributory Negative: Cardiac Disease, Hypertension, Diabetes Family History: family hx of thyroid disorder - Social History Alcohol Use: Rare Alcohol Amount: "special occasions like weddings" Substance Use Type: None Smoking Status (MU): Heavy Every Day Tobacco Smoker Type: Cigarettes Amount Used/How Often: 1/2 PPD X 10 YEARS Length of Time of Smoking/Using Tobacco: On and Off for 11 Years Have You Smoked in the Last Year: Yes Household Exposure Type: Cigarettes - Immunization History Most Recent Influenza Vaccination: Not the 2016/2016 Season Review of Systems All Other Systems Reviewed And Are Negative: Yes Constitutional: Positive: Negative Skin: Positive: Negative Eyes: Positive: Negative ENT: Positive: Negative Respiratory: Positive: Negative Cardiovascular: Positive: Negative Gastrointestinal: Positive: Negative Motor: Positive: Negative Neurovascular: Positive: Negative Musculoskeletal: Positive: Other: - SEE HPI Neurological: Positive: Negative Psychological: Positive: Negative Is Patient Immunocompromised?: No Physical Exam Triage Information Reviewed: Yes Appearance: Well-Appearing, Well-Nourished, Pain Distress - MILD WITH PALPATION OF LEFT CLAVICLE Vital Signs: Initial Vital Signs Temp 97.9 F 03/03/19 08:57 Pulse 81 03/03/19 08:57 Resp 17 03/03/19 08:57 BP 135/75 03/03/19 08:57 Pulse Ox 100 03/03/19 08:57 Vital Signs Reviewed: Yes Eye Exam: Normal Eyes: Positive: Conjunctiva Clear Neck: Positive: Supple, Other: - Mild left neck tenderness to palpation. Respiratory: Positive: Lungs clear, Normal breath sounds, No respiratory distress Cardiovascular: Positive: RRR Musculoskeletal: Positive: Other: - Normal radial pulses bilaterally fingers wrist elbows shoulders all have full range of motion and are symmetric. Normal capillary refill no sensation deficit. The left clavicle does appear more prominent with visualization and is tender to palpation. There is minimal tenderness to palpation in the left lateral aspect of the neck. Neurological: Positive: Alert, Muscle Tone Normal Psychological Exam: Normal Psychological: Positive: Age Appropriate Behavior Skin Exam: Normal Course/Dx - Course Course Of Treatment: Patient Name: MARLYN ZAMUDIO Medical Record#: [id number] Ordering Physician: Anish Shen MD Acct.#: [id number] : 1990 Age: 28 Sex: F Location: [facility] Exam Date: 03/03/19900 ADM Status: REG ER Order Information: CT SPINE CERVICAL W/O Accession Number: [id number] CPT: 69476 INDICATION: LEFT neck pain for 3 days after loading hay. Pain radiates up the LEFT arm to the clavicle with certain movements. COMPARISON: October 17, 2016 radiographs. TECHNIQUE: Multidetector CT images foramen magnum to lung apices without contrast. Multiplanar reformation. REPORT: Normal vertebral alignment accounting for exam positioning without spondylolisthesis or subluxation at any level. Negative for cervical vertebral body or posterior element fracture. Negative for paravertebral hematoma. At C4-C5 there is mild disc space narrowing. At C5-C6 there is minimal dorsal disc osteophyte complex without significant resulting impression on the thecal sac. No CT evidence for central canal or foraminal stenosis at any level. IMPRESSION: #. Mild degenerative spondylosis. No CT evidence for acquired spinal stenosis at any level. <Electronically signed by Fei Mccord MD in OV> 03/03/19 0935 Patient Name: MARLYN ZAMUDIO Medical Record#: [id number] Ordering Physician: Anish Shen MD Acct.#: [id number] : 1990 Age: 28 Sex: F Location: [facility] Exam Date: 03/03/19899 ADM Status: [facility] ER Order Information: CLAVICLE LEFT 2 VWS Accession Number: [id number] CPT: 00089 INDICATION: Left clavicle trauma. TECHNIQUE: 2 views of the left clavicle were obtained. FINDINGS: The bones are in normal alignment. No fracture is seen. Joint spaces appear maintained. The partially imaged left hemithorax is unremarkable. IMPRESSION: NO EVIDENCE FOR FRACTURE. <Electronically signed by Wade Villarreal MD in OV> 03/03/19 0916 I discussed the x-ray reports with the patient. Patient has no neurologic deficits at this time. The plan is icing and anti-inflammatories. We also gave the patient a sling here in clinic and was placed by nursing placed a neurovascular intact after placement of sling. Discussed range of motion exercises for the shoulder to be done multiple times a day when wearing a sling to avoid frozen shoulder. Patient will follow-up with sports medicine or orthopedics. - Diagnoses Provider Diagnosis: Collar bone pain, Neck pain on left side, Cervical radicular pain Discharge - Sign-Out/Discharge Documenting (check all that apply): Patient Departure All imaging exams completed and their final reports reviewed: Yes - Discharge Plan Condition: Stable Disposition: HOME Patient Education Materials: Cervical Radiculopathy (ED), Shoulder Pain (ED), Acute Neck Pain (ED) Referrals: Domi Ly PA [Primary Care Provider] - [facility] [Provider Group] Alessio Orona MD [Medical Doctor] - Additional Instructions: FOLLOW UP WITH SPORTS MEDICINE OR ORTHOPEDICS. GET REEVALUATED SOONER IF WORSE OR ANY QUESTIONS OR CONCERNS. - Billing Disposition and Condition Condition: STABLE Disposition: Home
== END 2019-03-03 10:21 | disposition home or self-care (01) ==
LOC: UCCORT 08:40
DX: M25.512 Pain in left shoulder (principal); M54.2 Cervicalgia; M54.12 Radiculopathy, cervical region; F17.210 Nicotine dependence, cigarettes, uncomplicated; Z55.0 Illiteracy and low-level literacy
CPT/HCPCS: 72125; 99212; G0463

== ENCOUNTER 2019-09-05 12:19 | Emergency (ER) | payer BC ==
--- OUTSIDE RECORDS SUMMARY | 2019-09-05 13:04 | XMS REPORT | Summary of Care ---
:1990 Author Organization [facility] Address [address] [place] [address] Care Team Providers Name Role Phone Domi Ly Primary Care Provider Reason for Referral Diagnostic Radiology (Routine) Status Reason Specialty Diagnoses / Referred By Contact Referred To Procedures Contact Open Radiology Diagnoses Middle cerebral artery aneurysm Brii Call MD Procedures MR Angiography Head with and without Contrast [address] [facility] 4th Floor [address] [place] [id number] Email: [email or web address] Reason for Visit Reason Comments Follow-up Encounter Details Date Type Department Care Team Description 08/24/[address] [facility] Neurology at Brii Call MD Middle cerebral artery aneurysm (Primary Dx); [facility] [address] [facility] Migraine without aura and without status migrainosus, not intractable; [place] [address] Right facial numbness [address] [place] [address] 4th Floor, [address] [place], [place] [phone] [phone] Allergies Active Allergy Reactions Severity Noted Date Comments Hydrocodone-Acetaminop Shortness Of Breath High 05/18/2018 05/28/18 Pt has been hen receiving Oxycodone/APAP (Percocet) outside k documented as of this encounter (statuses as of 08/24/2019) Medications Medication Sig Dispensed Refills Start Date End Date Status Norgestim-Eth Estrad Take 1 tablet by 0 Active Triphasic (TRI-LINYAH) mouth daily 0.18/0.215/0.25 MG-35 MCG TABS RA ASPIRIN 325 MG Take 325 mg by 0 05/12/2018 Active tablet mouth daily rivaroxaban (XARELTO) Take 1 tablet by 30 tablet 1 05/30/2018 Active 20 MG tablet mouth daily Additional information Patient not taking. Reported on 08/24/2019 9:55 AM gabapentin (NEURONTIN) 100 Take 1 capsule by mouth 90 capsule 3 06/12/2018 Active MG capsule Three times daily Additional information Patient not taking. Reported on 08/24/2019 9:55 AM SUMAtriptan Succinate 50 Take 1 10 tablet 6 08/24/2019 08/22/2020 Active MG Oral Tablet tablet by (IMITREX)Indications: mouth as Migraine without aura and needed for without status Migraine migrainosus, not intractable B2 100 MG Oral Tablet Take 2 30 each 6 08/24/2019 Active (RIBOFLAVIN)Indications: tablets by Migraine without aura and mouth daily without status migrainosus, not intractable Magnesium 400 MG Oral Take 400 mg 30 capsule 6 08/24/2019 Active CapsuleIndications: by mouth Migraine without aura and daily without status migrainosus, not intractable B2 (RIBOFLAVIN) 100 MG Take 2 30 each 6 08/07/2018 08/24/2019 Discontinued TABSIndications: Migraine tablets by (Reorder) without aura and without mouth daily status migrainosus, not intractable Magnesium 400 MG Take 400 mg 30 capsule 6 08/07/2018 08/24/2019 Discontinued CAPSIndications: Migraine by mouth (Reorder) without aura and without daily status migrainosus, not intractable documented as of this encounter (statuses as of 08/24/2019) Active Problems Problem Noted Date Right facial numbness 10/22/2018 Cerebral aneurysm, nonruptured 10/22/2018 Hemiparesthesia 08/07/2018 Suspected stroke patient last known to be well more than 2 hours ago 2017 Migraine without aura and without status migrainosus, not intractable 2017 PAD (peripheral artery disease) 05/28/2018 Tobacco abuse 05/28/2018 documented as of this encounter (statuses as of 08/24/2019) Social History Tobacco Use Types Packs/Day Years Used Date Current Every Day Smoker Cigarettes 0.5 10 Smokeless Tobacco: Never Used Alcohol Use Drinks/Week oz/Week Comments Yes occasional Alcohol Habits Answer Date Recorded How often do you have a drink containing alcohol? Monthly or less 08/07/2018 How many drinks containing alcohol do you have on a 1 or 2 08/07/2018 typical day when you are drinking? How often do you have six or more drinks on one Not asked occasion? Sex Assigned at Date Recorded Not on file Job Start Date Occupation Industry Not on file Not on file Not on file Travel History Travel Start Travel End No recent travel history available. documented as of this encounter Last Filed Vital Signs Vital Sign Reading Time Taken Comments Blood Pressure 115/79 08/24/2019 9:52 AM EST Pulse 83 08/24/2019 9:52 AM EST Temperature - - Respiratory Rate - - Oxygen Saturation - - Inhaled Oxygen Concentration - - Weight 71.3 kg (157 lb 3.2 oz) 08/24/2019 9:52 AM EST Height 162.6 cm (5' 4") 08/24/2019 9:52 AM EST Body Mass Index 26.98 08/24/2019 9:52 AM EST documented in this encounter Patient Instructions Patient InstructionsBrii Call MD - 08/24/2019 9:40 AM ESTStart B2 200mg daily Start Magnesium 400mg daily Take Imitrex 50mg at the onset of migraine. MR Angio to check [facility] Patient Education Sumatriptan tablets Brand Names: Imitrex, Migraine Pack What is this medicine? SUMATRIPTAN (price ma TRIP penn) is used to treat migraines with or without aura. An aura is a strange feeling or visual disturbance that warns you of an attack. It is not used to prevent migraines. How should I use this medicine? Take this medicine by mouth with a glass of water. Follow the directions on the prescription label. This medicine is taken at the first symptoms of a migraine. It is not for everyday use. If your migraine headache returns after one dose, you can take another dose as directed. You must leave at least 2hours between doses, and do not take more than 100 mg as a single dose. Do not take more than 200 mgtotal in any 24 hour period. If there is no improvement at all after the first dose, do not take a second dose without talking to your doctor or health emergency care attendant. Do not take your medicine moreoften than directed. Talk to your technical manager regarding the use of this medicine in children. Special care may be needed. What side effects may I notice from receiving this medicine? Side effects that you should report to your doctor or health emergency care attendant as soon as possible: allergic reactions like skin rash, itching or hives, swelling of the face, lips, or tongue bloody or watery diarrhea hallucination, loss of contact with reality pain, tingling, numbness in the face, hands, or feet seizures signs and symptoms of a blood clot such as breathing problems; changes in vision; chest pain; severe, sudden headache; pain, swelling, warmth in the leg; trouble speaking; sudden numbness or weakness of the face, arm, or leg signs and symptoms of a dangerous change in heartbeat or heart rhythm like chest pain; dizziness; fast or irregular heartbeat; palpitations, feeling faint or lightheaded; falls; breathing problems signs and symptoms of a stroke like changes in vision; confusion; trouble speaking or understanding; severe headaches; sudden numbness or weakness of the face, arm, or leg; trouble walking; dizziness; loss of balance or coordination stomach pain Side effects that usually do not require medical attention (report to your doctor or health emergency care attendant if they continue or are bothersome): changes in taste facial flushing headache muscle cramps muscle pain nausea, vomiting weak or tired What may interact with this medicine? Do not take this medicine with any of the following medicines: cocaine ergot alkaloids like dihydroergotamine, ergonovine, ergotamine, methylergonovine feverfew MAOIs like Carbex, Eldepryl, Marplan, Nardil, and Parnate other medicines for migraine headache like almotriptan, eletriptan, frovatriptan, naratriptan, rizatriptan, zolmitriptan tryptophan This medicine may also interact with the following medications: certain medicines for depression, anxiety, or psychotic disturbances What if I miss a dose? This does not apply; this medicine is not for regular use. Where should I keep my medicine? Keep out of the reach of children. Store at room temperature between 2 and 30 degrees C (36 and 86 degrees F). Throw away any unused medicine after the expiration date. What should I tell my health care provider before I take this medicine? They need to know if you have any of these conditions: circulation problems in fingers and toes diabetes heart disease high blood pressure high cholesterol history of irregular heartbeat history of stroke kidney disease liver disease postmenopausal or surgical removal of uterus and ovaries seizures smoke tobacco stomach or intestine problems an unusual or allergic reaction to sumatriptan, other medicines, foods, dyes, or preservatives or trying to get breast-feeding What should I watch for while using this medicine? Only take this medicine for a migraine headache. Take it if you get warning symptoms or at the startof a migraine attack. It is not for regular use to prevent migraine attacks. You may get drowsy or dizzy. Do not drive, use machinery, or do anything that needs mental alertnessuntil you know how this medicine affects you. To reduce dizzy or fainting spells, do not sit or stand up quickly, especially if you are an older patient. Alcohol can increase drowsiness, dizziness and flushing. Avoid alcoholic drinks. Smoking cigarettes may increase the risk of heart-related side effects from using this medicine. If you take migraine medicines for 10 or more days a month, your migraines may get worse. Keep a diary of headache days and medicine use. Contact your healthcare professional if your migraine attacks occur more frequently. NOTE:This sheet is a summary. It may not cover all possible information. If you have questions aboutthis medicine, talk to your doctor, pharmacist, or health care provider. 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 She was in her usual state of health until [id number] when she developed new symptoms includingright facial numbness. 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 Her typical migraine was not present during the symptoms. Headache semiology: She states her headaches have been present for many years on and off, worse withstress. They typically start with pressure across the front of the head, followed by photophobia, phonophobia. If she takes an ibuprofen she can sometimes abort it, but she usually has to lay down and nap. It goes away after the nap. This occurs a couple of times per month. At last visit on 10/22/18 Ms. Jackson and I reviewed her imaging which showed a small left MCA aneurysm. No white matter disease was detected. There was no contrast given. Her facial numbness had improved some but she did have 1 migraine with tingling on the left side of the face. She had returned to work with improvement of her mood. She stated the B2 and Magnesium helped with headache frequency. Since her last visit she reports she has been under more distress. She is concerned she has to have left hip surgery again. Apparently her left femoral artery is narrowed. She is getting more pain in her leg, numbness/achingin the toes. She is getting a new surgeon because Dr. Boyd left, but she is very nervous about this. She is possibly have an angioplasty vs surgery. She has seen 3 surgeons, one in [place], one in [place] , one in [place]. She isn't sure what to do. She hasn't tried to contact Dr. Boyd to seewhat he would say. She becomes tearful talking about this. She states that she still has a lot of bad days. She has [place] [address] [place] and she now has a lot of anxiety about [place] [address] to appointments or work. She has todrive her kids to school so she does drive some but doesn't feel comfortable going on the highway. She states this greatly limits her job prospects because [place] such [place] town. She has also been having more headaches on the right side, she isn't sure if this is related to her facial numbnesswhich is still there but stable. There is throbbing and aching but not as severe. The pain comes andgoes. She has a broken tooth on that side. The tooth isn't sensitive. She has a fear of the dentist and not willing to go to see them. The pain is 1-2/10 every day, and some days it is much more severe. She still feels some prickling if she touches the face on that side. She also has some neck discomfort on that side. She stopped the B2 200mg and magnesium 400mg. She doesn't want to take medications every day. ROS: Per HPI, otherwise negative for constitutional / eyes / ENMT / cardiovascular / respiratory / GI / / musculoskeletal / skin / endocrine / psych / heme Prior Diagnostic Results: MRI brain 06/12/18 (reviewed 07/2018): No evidence of MS. Some faint signal noted in the right thalamus on DWI, not called on report. CTH without contrast 06/02/18 (reviewed today): No evidence of acute stroke. MRI Brain 10/10/18 - No areas of restricted diffusion to suggest acute infarct. No areas of abnormal susceptibility. No midline shift. Midline structures are intact. No extra-axial fluid collection or hematoma. No white matter abnormalities. The ventricles, basal cisterns and sulci are normal. The regions of the sella, pituitary, and pontomedullary junctions are normal. The visualized paranasal sinuses and mastoid air cells are normal. MRA Head & Neck 10/10/18 1.Less than 1 mm outpouching is present at the region of anterior commuting artery, not contiguous to other side which is suggestive of either hypoplastic anterior commuting artery or small aneurysm. 2. A 1.7 mm aneurysm is seen arising from left MCA trifurcation. 3. There is no hemodynamically significant stenosis in anterior and posterior circulation. 4. No significant stenosis within the arterial tree of the neck. Echocardigoram 08/24/18 - 1. This is a complete two-dimensional transthoracic echocardiogram (2D, M-mode, Doppler and color flow Doppler). 2. The left ventricle size is normal.3. Left ventricular wall thickness is normal.4. Overall LV systolic function is normal.5. The calculated left ventricular ejection fraction is 56.7% . 6. The right ventricular systolic function is normal.7. There is no interatrial shunt visualized by color Doppler and 'bubble' study. 8. No prior reports available for comparison. Labs: A1c 4.9, BIBI specificity normal, LDL 133, HDL 46. Vicodin [hydrocodone-acetaminophen] Past Medical History: Diagnosis Date Anxiety Arterial stenosis Asthma as a child Hip pain PAD (peripheral artery disease) Past Surgical History: Procedure Laterality Date APPENDECTOMY 2010 HIP SURGERY ME REANEURYSM/GRFT INS,COMMON FEMORAL Left 05/28/2018 Procedure: 1.operative angiogram of left leg 2.Attempted angioplasty of common femoral stenosis 3.Haverst of left sapheno femoral vein junction. 4. patch plasty of left common femoral artery with sapheno femoral vein; Surgeon: Margarito Boyd MD; Location: [facility]; Service: Vascular; Laterality: Left; Social History Socioeconomic History Marital status: Spouse name: None Number of children: None Years of education: None Highest education level: None Occupational History None Social Needs Financial resource strain: None Food insecurity: Worry: None Inability: None Transportation needs: Medical: None Non-medical: None Tobacco Use Smoking status: Current Every Day Smoker Packs/day: 0.50 Years: 10.00 Pack years: 5.00 Types: Cigarettes Smokeless tobacco: Never Used Substance and Sexual Activity Alcohol use: Yes Frequency: Monthly or less Drinks per session: 1 or 2 Comment: occasional Drug use: No Sexual activity: Yes Partners: Male Lifestyle Physical activity: Days per week: None Minutes per session: None Stress: None Relationships Social connections: Talks on phone: None Gets together: None Attends anabaptist service: None Active member of club or organization: None Attends meetings of clubs or organizations: None Relationship status: None Intimate partner violence: Fear of current or ex partner: None Emotionally abused: None Physically abused: None Forced sexual activity: None Other Topics Concern None Social History Narrative Lives with and 2 kids Worked for [employer] and [employer] Family History Problem Relation Age of Onset No Known Problems Mother No Known Problems Brother No Known Problems Son No Known Problems Son Medications: Outpatient Medications Marked as Taking for the 08/24/19 encounter (Office Visit) with Brii Call MD Medication Sig Dispense Refill Extra Info RA ASPIRIN 325 MG tablet Take 325 mg by mouth daily 0 1 Visit Vitals BP 115/79 Pulse 83 Ht 1.626 m (5' 4") Wt 71.3 kg (157 lb 3.2 oz) LMP 08/18/2019 BMI 26.98 kg/m Body mass index is 26.98 kg/m. Exam: Mental Status: Fully oriented to person, place and time. Intact recent and remote memory. No aphasia. Concentration and attention span normal. Fund of knowledge normal. Cranial nerves: Visual jolley: Intact. Fundi:Normal discs bilaterally. Pupils: ERRL. EOMs: normal. Facial sensation:Decreased to light touch on the right cheek, forehead and chin, decreased to pinprick as well with paresthesias on stimulation.Facial movements:normal Hearing: Grossly intact. Palate: Elevates symmetrically. Shoulder shrug: Normal bilaterally. Tongue: Protrudes in midline; no atrophy or fasciculations. Motor: Tone: normal. Bulk: normal. No adventitious movements. Neck: there is some muscle spasm on the right trapezius. Strength: Neck flexion5, neck extension5. Muscle / Movement Right Left Deltoid 5 5 Biceps 5 5 Triceps 5 5 Wrist extension 5 5 Finger extension 5 5 Wrist flexion 5 5 Finger flexion 5 5 Abductor pollicis brevis 5 5 First dorsal interosseous 5 5 Abductor digiti minimi 5 5 Hip flexion 5 5 Hip extension 5 5 Knee extension 5 5 Knee flexion 5 5 Ankle dorsiflexion 5 5 Extensor hallucis longus 5 5 Extensor digitorum brevis 5 5 Ankle plantarflexion 5 5 Toe flexion 5 5 Reflex Right Left Biceps 2+ 2+ Triceps 2+ 2+ Brachioradialis 2+ 2+ Patellar 2+ 2+ Achilles 2+ 2+ Plantar responsesdown. Sensory: Light touchintact, pinprick intact except for face, vibration intact bilaterally, and joint position senseintact bilaterally. Coordination: No dysmetria on finger to nose. Gait: normal. Can heel and toe walk, can tandem. Rombergnegative. General: No apparent distress. Skin: No rash or cutaneous stigmata. Extremities: Normal pulses, no cyanosis or edema. Impression/Plan: Ms. 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 MRI and MRAs were done which did not show any evidence of stroke. She did have a small aneurysm in the left MCA, which will require follow up to ensure no growth in Sep 2019. 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 The headaches have perhaps worsened in the setting of a broken tooth. At times they are severe similar to her prior migraine with more paresthesias and strong pain. I spoke with Ms. Mayfield at length and she refused any daily medications. I suggested she try sumatriptan 50mg only at the onset of severe headache pain on the right side. She was given a handout withside effects and these were discussed. I encouraged her to restart her vitamin therapy B2 and Magnesium As for her left MCA aneurysm I suggested we repeat her imaging to ensure it has not changed. She hadit done at [address] in the past so we will see if she can get it done there again. I will order MRA brain w/ and w/o contrast to ensure good imaging quality. Of note, Ms. Mayfield was very emotional and anxious during our visit. She refused any medications at this time for depression and anxiety but did strike me as depressed. She admitted to agoraphobia, anxiety related to driving, anxiety to the point of inability to make decisions. She was open to seeing a therapist so I had our SW find a list of therapists in [facility] for her to contact. For her femoral artery problem, I deferred any opinion but suggested if she is concerned about what to do perhaps calling Dr. Boyd's new office in [place] as a possible first step. F/u in 6 mo Brii Call MD General Neurology/Neuromuscular Medicine documented in this encounter Plan of Treatment Date Type Specialty Care Team Description 03/07/2020 Office Visit Neurology Brii Call MD [address] [place] [address] 4th [address] [place] [address] Name Type Priority Associated Diagnoses Order Schedule MR Angiography Head with Imaging Routine Middle cerebral artery Expected: 08/24/2019, and without Contrast aneurysm Expires: 11/22/2020 Creatinine with GFR Lab Routine Middle cerebral artery Expected: 09/24/2019 , aneurysm Expires: 02/22/2020 Health Maintenance Due Date Last Done Comments MMR Vaccines (1 of 1 - Standard 1989 series) Varicella Vaccines (1 of 2 - 1989 2-dose childhood series) Pneumococcal Vaccine: Pediatrics 1994 (0 to 5 Years) and At-Risk Patients (6 to 64 Years) (1 of 1 - PPSV23) DTaP,Tdap,and Td Vaccines (1 - 12/12/1995 Tdap) HIV Screening 2001 Influenza Vaccine 05/18/2019 Pneumococcal Vaccine: 65+ Years (1 2053 of 2 - PCV13) HIB Vaccines Aged Out No longer eligible based on patient's age to complete this topic Hepatitis A Vaccines Aged Out No longer eligible based on patient's age to complete this topic Hepatitis B Vaccines Aged Out No longer eligible based on patient's age to complete this topic IPV Vaccines Aged Out No longer eligible based on patient's age to complete this topic documented as of this encounter Implants Implanted Type Area Cutter Operator Device Shelf Model / Identifier Expiration Serial / Date Lot Patch Vasc Xenosure [id number] - [id number] Left: LEMAITRE 10/15/2023 [id number] / Implanted: Qty: 1 on 05/28/2018 by Margarito Boyd MD at [facility] Arterial VASCULAR / [id number] documented as of this encounter Results Not on filedocumented in this encounter Visit Diagnoses Diagnosis Middle cerebral artery aneurysm - Primary Cerebral aneurysm, nonruptured Migraine without aura and without status migrainosus, not intractable Migraine without aura, without mention of intractable migraine without mention of status migrainosus Right facial numbness Disturbance of skin sensation documented in this encounter
[2019-09-05 13:05] VITALS: BP 126/78
[2019-09-05] MEDS ORDERED: Ketorolac INJ* 30 MG/ML 1 ML VIAL IM ONE (13:17)
--- NOTE | 2019-09-05 13:20 | UC ---
Neck Pain HPI - HPI Summary HPI Summary: The patient is a 28-year-old female who awoke 3 mornings ago with neck pain. She denies any injury. She does have a history of degenerative disc disease. Her symptoms have progressively worsened. Extending her neck causes increased pain. She does have some intermittent pain radiating down her right arm to her fingers. She took 2 aspirins this morning and it has not helped. She has not had any bowel or bladder dysfunction. She denies any headache. - History of Current Complaint Chief Complaint: UCBackPain Stated Complaint: NECK PIAN Hx Obtained From: Patient Hx Last Menstrual Period: 08/18/2019 Onset/Duration Of Injury/Symptoms: Days Mechanism Of Injury: No Known Trauma Timing: Constant Onset/Duration: Sudden Onset Severity: Moderate Pain Intensity: 7 Pain Scale Used: 0-10 Numeric Location: Diffuse Character: Aching, Spasmotic, Burning Aggravating Factors: Movement Alleviating Factors: Nothing Associated Signs & Symptoms: Positive: Negative Head: 1 - pain 2 - radiates here - Allergies/Home Medications Allergies/Adverse Reactions: Allergies Allergy/AdvReac Type Severity Reaction Status Date / Time hydrocodone [From Vicodin] Allergy Difficulty Verified 09/05/19 13:06 Breathing PMH/Surg Hx/FS Hx/Imm Hx Previously Healthy: Yes - Surgical History Surgical History: Yes Surgery Procedure, Year, and Place: Appendectomy, ~2010, S. LEFT HIP SURGERY , 01/28/18 - ARTHROSCOPIC LABRAL REPAIR & IMPINGEMENT. left femoral artery repair 05/28/18-[facility] - Family History Known Family History: Positive: None, Non-Contributory Negative: Cardiac Disease, Hypertension, Diabetes Family History: family hx of thyroid disorder - Social History Alcohol Use: Rare Alcohol Amount: "special occasions like weddings" Substance Use Type: None Smoking Status (MU): Heavy Every Day Tobacco Smoker Type: Cigarettes Amount Used/How Often: 1/2 PPD X 10 YEARS Length of Time of Smoking/Using Tobacco: On and Off for 11 Years Have You Smoked in the Last Year: Yes Household Exposure Type: Cigarettes - Immunization History Most Recent Influenza Vaccination: Not the Season Review of Systems All Other Systems Reviewed And Are Negative: Yes Constitutional: Positive: Negative Skin: Positive: Negative Eyes: Positive: Negative ENT: Positive: Negative Respiratory: Positive: Negative Cardiovascular: Positive: Negative Gastrointestinal: Positive: Negative Genitourinary: Positive: Negative Motor: Positive: Negative Neurovascular: Positive: Negative Musculoskeletal: Positive: Arthralgia - neck Neurological: Positive: Negative, Paresthesia - right arm Psychological: Positive: Negative Physical Exam Triage Information Reviewed: Yes Appearance: Well-Appearing, No Pain Distress, Well-Nourished Vital Signs: Initial Vital Signs Temp 98.2 F 09/05/19 13:03 Pulse 86 09/05/19 13:03 Resp 12 09/05/19 13:03 BP 126/78 09/05/19 13:03 Pulse Ox 100 09/05/19 13:03 Vital Signs Reviewed: Yes Eyes: Positive: Conjunctiva Clear ENT: Positive: Hearing grossly normal. Negative: Nasal congestion, Nasal drainage, Trismus, Muffled voice, Dental tenderness Dental Exam: Normal Neck: Positive: Tenderness @ - C-7, Other: - markedly decreased ROM. Negative: Supple Respiratory: Positive: Lungs clear, Normal breath sounds, No respiratory distress, No accessory muscle use Cardiovascular: Positive: RRR, No Murmur Musculoskeletal: Positive: ROM Intact, No Edema Neurological: Positive: Alert Psychological Exam: Normal Skin Exam: Normal Diagnostics - Radiology No standard instances Radiology Interpretation Completed By: Radiologist Summary of Radiographic Findings: There is only mild intervertebral disc height loss at C5-C6. There is mild osseous encroachment of the right C5-C6 and C6-C7 neural foramina. IMPRESSION: MILD OSSEOUS ENCROACHMENT OF THE RIGHT C5-C6 AND C6 -C7 NEURAL FORAMINA. Neck Pain Course/Dx - Differential Dx/Diagnosis Provider Diagnosis: Cervical strain, acute Discharge ED - Sign-Out/Discharge Documenting (check all that apply): Patient Departure All imaging exams completed and their final reports reviewed: Yes - Discharge Plan Condition: Stable Disposition: HOME Patient Education Materials: Cervical Strain (ED), Soft Cervical Collar (ED) Referrals: Domi Ly PA [Primary Care Provider] - 2 Weeks (if not better) Additional Instructions: PT consult soft collar - Billing Disposition and Condition Condition: STABLE Disposition: Home
== END 2019-09-05 14:25 | disposition home or self-care (01) ==
LOC: UCEAST 12:19
DX: S16.1XXA Strain of muscle, fascia and tendon at neck level, initial encounter (principal); F17.210 Nicotine dependence, cigarettes, uncomplicated; M50.30 Other cervical disc degeneration, unspecified cervical region; Z88.5 Allergy status to narcotic agent; X58.XXXA Exposure to other specified factors, initial encounter; Y92.9 Unspecified place or not applicable
CPT/HCPCS: 72050; 99213; G0463; J1885